=== PATIENT | male | born 1975 | race African-American/Black ===

== ENCOUNTER 2019-08-26 14:36 | Outpatient (CLI) | payer OTHER ==
--- NOTE | 2019-08-26 15:11 | RAD ---
2 VIEWS CHEST: Date: 08/26/2019 COMPARISON: 03/24/15. HISTORY: Disability examination. FINDINGS: No pneumothorax, pleural fluid, focal consolidation, or alveolar edema. Heart and mediastinal contour s are unremarkable. IMPRESSION: No acute findings. POS: [facility]
== END 2019-08-26 14:37 | disposition home or self-care (01) ==
LOC: BICRAD 14:36
PROVIDERS: ATTEND Internal Medicine
DX: Z02.71 Encounter for disability determination (principal)
CPT/HCPCS: 71046

== ENCOUNTER 2020-04-25 08:51 | Inpatient (IN) | payer MEDICAID, OTHER ==
[2020-04-25 09:43] LABS: Bacteria/HPF None Seen HPF (None Seen); Bilirubin Negative (Negative); Blood, Urine Trace (Negative); Clarity Clear (Clear); Glucose, Urine (Dipstick) Greater than 1000 mg/dL (Negative); Ketone, Urine Negative (Negative); Leukocyte Negative Leu/uL (Negative); Nitrite Negative (Negative); Protein, Urine (Dipstick) 70 mg/dL (Neg-Trace); RBC/HPF 0-3 HPF (0-3); Specific Gravity, Urine 1.018 (1.002-1.036); Squamous Epithelial None Seen HPF (0-3); Urobilinogen Normal mg/dL (Less than 2); WBC/HPF 0-3 HPF (0-3)
[2020-04-25 09:52] LABS: Amphetamine Not Detected (NotDetected); Barbiturates Screen Not Detected (NotDetected); Benzodiazepine Screen Not Detected (NotDetected); Cocaine Metabolite Screen Not Detected (NotDetected); Medtox Control Line Valid? VALID (VALID); Medtox Reader # READER 4; Methadone Not Detected (NotDetected); Methamphetamine Not Detected (NotDetected); Opiate Screen Not Detected (NotDetected); Oxycodone Screen Not Detected (NotDetected); Phencyclidine (PCP) Not Detected (NotDetected); THC/Cannabinoid Screen Not Detected (NotDetected); Tricyclic Screen Not Detected (NotDetected)
--- NOTE | 2020-04-25 09:56 | CT ---
CT HEAD WITHOUT IV CONTRAST COMPARISON: None HISTORY: Shaking. Seizure. TECHNIQUE: Axial CT imaging at 5 mm intervals from vertex through skull base without contrast FINDINGS: There is no evidence of an acute infarction, hemorrhage, mass effect, or midline shift. The ventricul ar system is normal in size, shape, and position. Visualized paranasal sinuses are clear. Osseous structures appear intact. IMPRESSION: 1. No acute intracranial abnormality demonstrated.
[2020-04-25 09:58] LABS: ALT (SGPT) 47 U/L (8-55); AST (SGOT) 29 U/L (5-34); Acetaminophen Less than 6.0 mcg/mL (10.0-30.0); Albumin 3.4 g/dL (3.5-5.0); Alcohol Less than 10 mg/dL (Less than 10); Alkaline Phosphatase 257 U/L (40-110); Anion Gap 14 mmol/L (10-20); BUN (Urea Nitrogen) 28 mg/dL (8.9-20.6); Bilirubin, Total 0.4 mg/dL (0.2-1.2); Calc. Creatinine Clearance 0 mL/min (70-130); Carbon Dioxide 24 mmol/L (22-29); Chloride 98 mmol/L (98-107); Estimated GFR-MDRD 29; Globulin 3.8 g/dL (2.4-3.5); Hemoglobin 14.3 g/dL (14.0-18.0); Mean Corpuscular HGB CONC 33.3 g/dL (32.0-36.0); Mean Corpuscular Hemoglobin 27.7 pg (27.0-31.0); Protein, Total 7.2 g/dL (6.0-8.3); RBC Distribution Width 14.1 % (11.5-14.5); Red Blood Cell (RBC) Count 5.16 mill/uL (4.70-6.10); Salicylate Less than 8.0 mg/dL (15.0-30.0); Sodium 132 mmol/L (136-145); White Blood Cell (WBC) Count 7.6 thou/uL (4.8-10.8)
[2020-04-25 10:01] LABS: #Eosinphils 0.1 thou/uL (0.0-0.7); #Lymphocytes 1.5 thou/uL (1.20-3.40); #Monocytes 0.5 thou/uL (0.11-0.59); #Neutrophils 5.4 thou/uL (1.40-6.50); %Basophils 0.4 % (0.0-1.0); %Lymphocytes 20.4 % (21.0-51.0); %Monocytes 6.3 % (0.0-10.0); %Neutrophils 71.9 % (42.0-75.0); Large Platelets MODERATE; MDiff Complete? YES; Mean Platelet Volume 13.1 fL (7.4-10.4); Platelet Count 140 thou/uL (130-400); Platelet Morphology Comment Appears Adequate; Polychromasia SLIGHT = 2-3 cells (100X) (0-2/hpf)
[2020-04-25 10:10] LABS: Glucose 725 mg/dL (70-105)
[2020-04-25] MEDS ORDERED: Insulin Regular 300 UNITS/3 ML VIAL ONE (10:17)
--- NOTE | 2020-04-25 11:05 | PDOC.HHP ---
Hospitalist HPI - History of Present Illness Seizure like activity History of Present Illness: PCP: [facility] for all The H&P was taken from the patient as well as his girlfriend, who is at bedside in the emergency department. The patient is a 44-year-old male with a past medical history significant for diabetes type 2 (on insulin), CHF, hypertension, hyperlipidemia and CKD stage III that presents to the emergency department via EMS for the above complaint. The patient and his girlfriend report upon waking this morning, seizure-like activity at approximately 0800. She reports that when she rolled over in bed, the patient had his bilateral upper extremities contracted against his chest with his eyes rolled in the back of his head. At that time, she thought that he was either having a seizure or a stroke. She also noticed bright red blood from his mouth. She also reports that he was gritting his teeth. She believes this lasted approximately 15 minutes. She proceeded to turn the patient on his side and called 911. When EMS arrived, the patient was described as being confused and mildly combative. With reorientation, the patient returned to baseline. He was noted to have a blood glucose of 587, heart rate 110. The patient and his girlfriend deny any recent trauma or falls. He has not any anticoagulation. He has no family history of seizures. Denies any recent fever or illness. Both report that he has been noncompliant with medication regimen secondary to access. The patient is disabled and is currently establishing, seen at [facility]. The patient also reports polyuria, polydipsia and polyphagia. Denies any dysuria or penile discharge. Patient reports chronic abdominal pain, which they think is related to his diagnosis of gastroparesis. Denies any bloody stools or constipation. The patient denies any chest pain, heart palpitations, swelling to his lower extremities. Denies any shortness of breath or cough. ED Course: VITAL SIGNS Lowman Apr 25, 2020 09:13 SKINNY Andrews Jenifer BP: 183/123, MAP: 143, Pulse: 112, Resp: 18 (Non-Labored), Temp: 98.8 (Oral), Pain: 3, O2 sat: 94 on (Room Air), Time: 04/25/2020 09:13. VITAL SIGNS Lowman Apr 25, 2020 10:33 SKINNY Andrews Jenifer BP: 198/135, MAP: 156, Pulse: 103, Resp: 17 (Non-Labored), Pain: 6, O2 sat: 95 on (Room Air), Time: 04/25/2020 10:33 *Tylenol 1 g Oral Acknowledged 10:42 04/25/2020 NovoLIN R Regular U-100 Insuln 10 units IV Push Given 10:26 04/25/2020 sodium chloride 0.9 % intravenous 1 L IV Fluid Infusion Given 10:25 04/25/2020 sodium chloride 0.9 % intravenous 1 L IV Fluid Infusion Given 09:26 04/25/2020 Hospitalist ROS - Review of Systems Constitutional: denies: fever, chills Respiratory: denies: cough, shortness of breath Cardiovascular: denies: chest pain, palpitations, edema Gastrointestinal: denies: nausea, abdominal pain, diarrhea Genitourinary: reports: frequency. denies: dysuria, hematuria, retention Musculoskeletal: denies: neck pain, back pain Skin: denies: luis manuel, bruising Neurological: reports: confusion, seizures (Possible seizure-like activity) All other systems reviewed; all pertinent +/- noted in HPI/Subj - Medication Medications: HumaLOG VIAL (ML) : Strength - 100 unit/mL : SUBCUTANEOUS Patient Dose: 10 units Subcutaneous As Needed. Levemir Flexpen INSULIN PEN (ML) : Strength - 100 unit/mL (3 mL) : SUBCUTANEOUS Patient Dose: 85 units Subcutaneous once a day (at bedtime). gabapentin CAPSULE : Strength - 300 mg : ORAL Patient Dose: 300 mg Oral 3 times a day. Lasix oral TABLET : Strength - 20 mg : ORAL Patient Dose: 20 mg Oral once a day. aspirin oral TABLET : Strength - 81 mg : ORAL Patient Dose: 81 mg Oral once a day. Omeprazole 40mg po daily. Allergies: NKDA Hospitalist History - Past Medical History Source: patient, RN notes reviewed Cardiac: reports: CHF, HTN, Hyperlipidemia HEEL CUTTER: reports: Peripheral neuropathy Gastrointestinal: reports: GERD, Other (Gastroparesis likely due to uncontrolled diabetes) Renal/: reports: Chronic renal insuff (Stage III) Endocrine: reports: Diabetes (Type II) Other Medical History: MEDICAL HISTORY Sun Apr 25, 2020 09:06 SKINNY Andrews, Viji Tetanus immunization up to date, Pneumococcal vaccine not up to date, gastroesophageal reflux disease, renal disease, insufficiency, STAGE 3, congestive heart failure, diabetes, Type II, on insulin, gastroesophageal reflux disease, hypertension. MALE SURGICAL HISTORY Lowman Apr 25, 2020 09:06 SKINNY Andrews Jenifer ear tubes, infection to scrotum. PSYCHIATRIC HISTORY Lowman Apr 25, 2020 09:06 SKINNY Andrews Jenifer No previous psychiatric history. SOCIAL HISTORY Lowman Apr 25, 2020 09:06 SKINNY Andrews Jenifer Patient denies alcohol use, Patient is a former drug user, abused marijuana, Patient has no smoking history. FAMILY HISTORY: - Past Surgical History Past Surgical History: reports: no pertinent history - Family History Family History: reports: cancer, Other (Noncontributory for seizures). denies: cerebrovascular accident Other Family History: contributory for Diabetes. - Social History Smoking Status: Never smoker Alcohol: reports: None Drugs: reports: none Living Situation: Other (Lives with girlfriend in [facility]) Occupation: Disabled Activity level: independent ambulation - Exam General Appearance: NAD, awake alert Eye: PERRL, anicteric sclera ENT: normocephalic atraumatic. negative: no oropharyngeal lesions ENT - other findings: right side tongue ulceration/lesion, no blood Neck: supple, symmetric, no JVD Heart: RRR, no murmur, no gallops, no rubs, normal peripheral pulses Respiratory: CTAB, no wheezes, no rales, no ronchi, normal chest expansion, no tachypnea Gastrointestinal: soft, non-tender, normal bowel sounds, no bruit, no guarding, no rigidity Extremities: no cyanosis, no edema Neurological: cranial nerve grossly intact, normal sensation to touch, no weakness, no focal deficits Musculoskeletal: normal tone, normal strength Psychiatric: normal affect, A&O x 3 Hospitalist Results - Labs Result Diagrams: 04/25/20 09:24 04/25/20 09:24 Lab results: WBC 7.6 thou/uL (4.8-10.8) 04/25/20 09:24 Hgb 14.3 g/dL (14.0-18.0) 04/25/20 09:24 Hct 42.8 % (42.0-52.0) 04/25/20 09:24 MCV 83.0 fL (78.0-98.0) 04/25/20 09:24 Plt Count 140 thou/uL (130-400) 04/25/20 09:24 Neutrophils % 71.9 % (42.0-75.0) 04/25/20 09:24 Sodium 132 mmol/L (136-145) L 04/25/20 09:24 Potassium 4.0 mmol/L (3.5-5.1) 04/25/20 09:24 Chloride 98 mmol/L (98-107) 04/25/20 09:24 Carbon Dioxide 24 mmol/L (22-29) 04/25/20 09:24 BUN 28 mg/dL (8.9-20.6) H 04/25/20 09:24 Creatinine 2.92 mg/dL (0.7-1.3) H 04/25/20 09:24 Glucose 725 mg/dL (70-105) H* 04/25/20 09:24 Calcium 9.0 mg/dL (7.8-10.44) 04/25/20 09:24 Total Bilirubin 0.4 mg/dL (0.2-1.2) 04/25/20 09:24 AST 29 U/L (5-34) 04/25/20 09:24 ALT 47 U/L (8-55) 04/25/20 09:24 Alkaline Phosphatase 257 U/L (40-110) H 04/25/20 09:24 Serum Total Protein 7.2 g/dL (6.0-8.3) 04/25/20 09:24 Albumin 3.4 g/dL (3.5-5.0) L 04/25/20 09:24 Urine Ketones Negative mg/dL (Negative) 04/25/20 09:25 Urine Blood Trace (Negative) A 04/25/20 09:25 Urine Nitrite Negative (Negative) 04/25/20 09:25 Ur Leukocyte Esterase Negative Reji/uL (Negative) 04/25/20 09:25 Urine RBC 0-3 HPF (0-3) 04/25/20 09:25 Urine WBC 0-3 HPF (0-3) 04/25/20 09:25 Ur Squamous Epith Cells None Seen HPF (0-3) 04/25/20 09:25 Urine Bacteria None Seen HPF (None Seen) 04/25/20 09:25 - EKG Interpretation EK lead EKG interpreted by Emergency Department Physician at time of study, 12 lead EKG shows, sinus tachycardia, Rate (beats per minute): 109, Conduction normal, ST segments normal, T waves normal, [place], left, Clinical impression:, other dysrhythmia left anterior fasicular block, no stemi, no sgarbossa. - Radiology Interpretation Chest x-ray Status: report reviewed by me Additional Comment: No acute cardiopulmonary process. CT scan - head Status: report reviewed by me Additional Comment: IMPRESSION: 1. No acute intracranial abnormality demonstrated. Hospitalist H&P A/P - Problem (1) Observed seizure-like activity Code(s): R56.9 - UNSPECIFIED CONVULSIONS Status: Acute (2) Hyperglycemia Code(s): R73.9 - HYPERGLYCEMIA, UNSPECIFIED Status: Acute (3) KAIDEN (acute kidney injury) Code(s): N17.9 - ACUTE KIDNEY FAILURE, UNSPECIFIED Status: Acute (4) DM type 2 (diabetes mellitus, type 2) Status: Chronic Qualifiers: Diabetes mellitus mcc insulin use: with mcc use Diabetes mellitus complication status: with hyperosmolarity Diabetes mellitus complication detail: without coma Qualified Code(s): E11.00 - Type 2 diabetes mellitus with hyperosmolarity without nonketotic hyperglycemic-hyperosmolar coma (NKHHC); Z79.4 - halfway (current) use of insulin (5) CHF (congestive heart failure) Code(s): I50.9 - HEART FAILURE, UNSPECIFIED Status: Chronic (6) Hypertension Code(s): I10 - ESSENTIAL (PRIMARY) HYPERTENSION Status: Chronic Qualifiers: Hypertension type: essential hypertension Qualified Code(s): I10 - Essential (primary) hypertension (7) Hyperlipidemia Code(s): E78.5 - HYPERLIPIDEMIA, UNSPECIFIED Status: Chronic (8) GERD (gastroesophageal reflux disease) Code(s): K21.9 - GASTRO-ESOPHAGEAL REFLUX DISEASE WITHOUT ESOPHAGITIS Status: Chronic - Plan Plan: 44/M with PMH uncontrolled DM2 presents for seizure-like activity. Admit to stroke unit, inpatient status. Expected length of stay greater than 2 midnights. #Seizure-like activity Likely metabolic encephalopathy secondary to elevated blood glucose readings. Presented hypertensive and tachycardic with normal RR, normal SPO2, afebrile. CT brain negative for acute process. EKG sinus tach, no ST elevation. CXR negative for acute process. BG 725, UA positive glucose, negative ketones. Gap of 14. Beta hydroxybutyrate 0.34. LA 1.8. Sodium 132 (corrected 142) UDS negative Serum osmolality 327 Prolactin unremarkable. Received 2 L normal saline, 10 units regular insulin IV. Continue IV fluids, half normal saline Aggressive ISS, every 4 Accu-Cheks Start Lantus 40 twice daily (half home dose) Recheck BMP at 1700. Consult neurology and Physical Therapy Neuro checks every 4 Seizure precautions, fall precautions Ativan IVP PRN Obtain echocardiogram. #Hyperglycemia Presented BG 725, UA positive glucose, negative ketones Beta hydroxybutyrate 0.34, gap closed, LA 1.8. Given 10 units of regular insulin and 2 L NS We will continue IV fluid resuscitation Start Lantus 40 units twice daily (half home dose) Aggressive sliding scale Every 4 Accu-Cheks #KAIDEN Acute on chronic (most recent reading 2014) BUN 28, creatinine 2.92 We will continue IV fluid Recheck level in a.m. #Diabetes type 2 Uncontrolled H A1c greater than 14 Patient reports noncompliance secondary to access. Aggressive ISS, every 4 checks Start Lantus 40 units twice daily #CHF Previous echocardiogram 03/2015 EF 50-55% with left ventricular dilatation and LVH. Left atrial dilatation. Mild tricuspid and mitral valve regurgitation. Patient noncompliant with Coreg secondary to limited access. We will obtain echocardiogram. #Hypertension Presented with BP 183/123. We will monitor blood pressure and add PRN's as necessary. #Hyperlipidemia Patient takes no medications Will check FLP. #GERD Takes unknown home medication. Will start on Protonix. Protonix for GI prophylaxis. Heparin for DVT prophylaxis. Full code. Designated medical decision-maker GIRLFRIEND, Phone number: [phone], [place] [facility] AT PT BEDSIDE. Discussed case with Dr. Jay.
--- NOTE | 2020-04-25 11:06 | RAD ---
EXAM: CHEST ONE VIEW HISTORY: Possible seizure. Shaking. Mouth bleeding. COMPARISON: 08/26/2019 FINDINGS: The cardiac silhouette and pulmonary vasculature are within normal limits. Mild elevation right hemid iaphragm is again seen. Lungs are clear. No interval change from prior study. IMPRESSION: No acute cardiopulmonary process.
[2020-04-25] MEDS ORDERED: Acetaminophen 500 MG TAB ONE (11:10)
[2020-04-25 11:20] LABS: Hemoglobin A1c Greater than 14.0 % (4.0-6.0)
[2020-04-25 11:32] LABS: INR-International Normal Ratio 0.9; PTT 24.5 sec (22.9-36.1); Prothrombin Time 11.9 sec (12.0-14.7)
[2020-04-25 11:43] LABS: Lactic Acid 1.8 mmol/L (0.5-2.2)
[2020-04-25 11:46] LABS: Phosphorus 2.2 mg/dL (2.3-4.7)
[2020-04-25] MEDS ORDERED: Dextrose 5% in Water 1,000 ML IV PRN (12:13)
[2020-04-25] MEDS ORDERED: Dextrose 50% Abboject 50 ML SYRINGE SLOW IVP PRN (12:13)
[2020-04-25] MEDS ORDERED: PHOS-NAK 1 PKT PACK PO PRN (12:19)
[2020-04-25] MEDS ORDERED: hydrALAZINE 20 MG/ML VIAL SLOW IVP PRN (12:24)
[2020-04-25] MEDS ORDERED: Lorazepam 2 MG/ML VIAL SLOW IVP PRN (12:25)
[2020-04-25] MEDS ORDERED: Ondansetron PF 4 MG/2 ML Vial IVP PRN (12:26)
[2020-04-25] MEDS ORDERED: Calcium Carbonate 500 MG ChewTAB PO PRN (12:26)
[2020-04-25] MEDS ORDERED: Ondansetron ODT 4 MG TAB PO PRN (12:26)
[2020-04-25] MEDS ORDERED: Senokot S 8.6-50 MG TAB PO PRN (12:26)
[2020-04-25] MEDS ORDERED: Insulin Glargine 40 UNITS in Pre-Filled Syringe 1 EACH SC SCH ×2 (12:30→21:00)
[2020-04-25 14:38] VITALS: BMI 39.6
[2020-04-25] MEDS: Benzocaine (Dental) 20% 10 gm Tube TOP PRN ×2 (15:20→20:33)
[2020-04-25] MEDS: Sodium Chloride 0.45% 1,000 ML IV SCH (15:28)
[2020-04-25 15:52] LABS: Troponin I 0.069 ng/mL (< 0.028)
[2020-04-25] MEDS: Labetalol HCl 100 MG/20 ML VIAL SLOW IVP PRN ×2 (17:10→22:14)
[2020-04-25] MEDS: HumaLOG 300 UNITS/3 ML VIAL SC PRN (17:11)
[2020-04-25] MEDS: Acetaminophen 325 MG TAB PO PRN ×2 (17:12→20:33)
[2020-04-25] MEDS: K-Phos Neutral 250 MG TAB PO SCH (17:12)
[2020-04-25 17:26] LABS: Anion Gap 15 mmol/L (10-20); BUN (Urea Nitrogen) 27 mg/dL (8.9-20.6); Calc. Creatinine Clearance 85 mL/min (70-130); Calcium 8.9 mg/dL (7.8-10.44); Carbon Dioxide 22 mmol/L (22-29); Chloride 100 mmol/L (98-107); Estimated GFR-MDRD 36; Glucose 478 mg/dL (70-105); Potassium 3.5 mmol/L (3.5-5.1); Sodium 133 mmol/L (136-145)
[2020-04-25 17:54] LABS: Troponin I 0.081 ng/mL (< 0.028)
[2020-04-25] MEDS ORDERED: Aspirin 325 mg Enteric Coated Tablet PO SCH (18:30)
[2020-04-25] MEDS: cloNIDine 0.1 MG TAB PO PRN (18:43)
[2020-04-25] MEDS ORDERED: Benzocaine (Dental) 20% 10 gm Tube TOP PRN (19:08)
[2020-04-25] MEDS: Heparin 5,000 UNITS/ML VIAL SC SCH (20:33)
[2020-04-26] MEDS: HumaLOG 300 UNITS/3 ML VIAL SC PRN ×7 (00:42→23:50)
[2020-04-26] MEDS: Acetaminophen 325 MG TAB PO PRN ×3 (00:42→21:00)
[2020-04-26] MEDS: Sodium Chloride 0.45% 1,000 ML IV SCH (00:47)
[2020-04-26] MEDS: Labetalol HCl 100 MG/20 ML VIAL SLOW IVP PRN ×3 (04:21→15:22)
[2020-04-26 04:41] LABS: #Basophils 0.1 thou/uL (0.0-0.2); #Eosinphils 0.1 thou/uL (0.0-0.7); #Lymphocytes 2.4 thou/uL (1.20-3.40); #Monocytes 0.5 thou/uL (0.11-0.59); #Neutrophils 4.8 thou/uL (1.40-6.50); %Eosinophils 1.8 % (0.0-10.0); %Monocytes 5.7 % (0.0-10.0); %Neutrophils 61.5 % (42.0-75.0); Hemoglobin 12.8 g/dL (14.0-18.0); Mean Corpuscular HGB CONC 33.1 g/dL (32.0-36.0); Mean Corpuscular Hemoglobin 27.3 pg (27.0-31.0); Mean Corpuscular Volume 82.4 fL (78.0-98.0); Mean Platelet Volume 12.4 fL (7.4-10.4); Platelet Count 127 thou/uL (130-400); RBC Distribution Width 13.9 % (11.5-14.5); Red Blood Cell (RBC) Count 4.67 mill/uL (4.70-6.10); White Blood Cell (WBC) Count 7.9 thou/uL (4.8-10.8)
[2020-04-26 05:04] LABS: Anion Gap 14 mmol/L (10-20); BUN (Urea Nitrogen) 26 mg/dL (8.9-20.6); Calc. Creatinine Clearance 99 mL/min (70-130); Calcium 8.5 mg/dL (7.8-10.44); Carbon Dioxide 21 mmol/L (22-29); Chloride 103 mmol/L (98-107); Cholesterol 174 mg/dl (< 200 Desired); Estimated GFR-MDRD 43; Glucose 350 mg/dL (70-105); HDL Cholesterol 29 mg/dL (>60 Neg Risk); Phosphorus 2.8 mg/dL (2.3-4.7); Potassium 3.2 mmol/L (3.5-5.1); Sodium 135 mmol/L (136-145); Triglycerides 523 mg/dL (Less than 150)
[2020-04-26] MEDS ORDERED: Famotidine 20 MG TAB PO SCH (09:00)
[2020-04-26] MEDS ORDERED: Famotidine/PF 20 mg/2ml Vial SLOW IVP SCH (09:00)
--- NOTE | 2020-04-26 09:24 | MRI ---
MRI BRAIN WITHOUT CONTRAST: HISTORY: Seizure CORRELATION: CT scan from 04/25/2020. FINDINGS: No restricted diffusion is seen. There are a few foci of T2 prolongation in the periventricular white matter, consistent with mild chronic small vessel ischemic disease. The ventricular size is appropriate and the basilar cisterns are patent. No evidence of acute infarct, hemorrhage, midline shift or abnormal extra-axial fluid collections is seen. There is minimal mucosal disease in the left ethmoid air cells. IMPRESSION: No evidence of acute intracranial process.
[2020-04-26] MEDS: K-Phos Neutral 250 MG TAB PO SCH (09:41)
[2020-04-26] MEDS: Aspirin 81 mg Enteric Coated Tablet PO SCH (09:41)
[2020-04-26] MEDS: Heparin 5,000 UNITS/ML VIAL SC SCH ×2 (09:43→20:50)
[2020-04-26] MEDS: Insulin Glargine 40 UNITS in Pre-Filled Syringe 1 EACH SC SCH (09:43)
[2020-04-26] MEDS: cloNIDine 0.1 MG TAB PO PRN ×3 (11:41→23:49)
[2020-04-26] MEDS ORDERED: HumaLOG 300 UNITS/3 ML VIAL SC PRN (11:57)
[2020-04-26] MEDS ORDERED: Amlodipine 5 MG TAB PO SCH (12:00)
[2020-04-26] MEDS ORDERED: Metoprolol Tartrate 25 MG TAB PO SCH ×2 (12:15→21:00)
--- NOTE | 2020-04-26 13:16 | CON ---
NEUROLOGY CONSULTATION DATE OF CONSULTATION: 04/26/2020 REASON FOR CONSULTATION: Seizure-like activity. HISTORY OF PRESENT ILLNESS: Mr. Baez is a 44-year-old male with history significant for congestive heart failure, hypertension, hyperlipidemia, peripheral neuropathy, GERD, diabetes, and end-stage stage 3 chronic kidney disease, presented to the emergency room via EMS because of seizure-like activity. The patient and his girlfriend reported that on waking up in the morning, he had seizure-like activity. According to the patient's girlfriend, she rolled over in bed, when she saw the patient, has bilateral upper extremity contracted again, his chest and his eyes rolled at the back of his head. She also noticed bright red blood coming from the mouth and he was grinding his teeth. The episode lasted for about 15 minutes and she put the patient on the side and called 911. When the EMS arrived, he was confused and combative. He also was found to have hyperglycemia with blood glucose of 587 and heart rate of 110. The patient denies focal weakness, focal paresthesias, nausea, vomiting, headache, chest pain, abdominal pain, loss of vision, blurred vision, problems with speech or swallowing associated with the episode. He also denies constipation, chest pain, palpitation, cough or recent illness or recent exposure to COVID. REVIEW OF SYSTEMS: All 14 systems were reviewed and were negative except the pertinent positives and negatives mentioned in the HPI. PAST MEDICAL HISTORY: Significant for hypertension, hyperlipidemia, congestive heart failure, diabetes mellitus, chronic renal insufficiency stage 3, GERD, and peripheral neuropathy. PAST SURGICAL HISTORY: Ear tubes and surgery for infection to scrotum. SOCIAL HISTORY: The patient is a former drug user, abuse marijuana. Denies smoking, alcohol or illegal drug use. FAMILY HISTORY: Significant for cancer. Denies history of epilepsy or cerebrovascular accident. He does have family history of diabetes. SOCIAL HISTORY: Disabled. Lives with a girlfriend. Denies smoking, alcohol or illegal drug use. He has not abused drugs in the past. ALLERGIES:NKDA VITAL SIGNS: Blood pressure 183/123 on presentation, heart rate 112, and respiratory rate 18. MEDICATIONS: 1. Humalog insulin 100 units/mL subcutaneous 10 units as needed. 2. Insulin Pen 85 units subcutaneously at bedtime. 3. Levemir FlexPen. 4. Gabapentin 300 mg t.i.d. 5. Lasix 20 mg once a day. 6. Aspirin 81 mg once a day. 7. Omeprazole 40 mg daily. ALLERGIES: NO KNOWN DRUG ALLERGIES. PHYSICAL EXAMINATION: General Appearance: NAD, awake alert Eye: PERRL, anicteric sclera ENT: normocephalic atraumatic. negative: no oropharyngeal lesions ENT - other findings: right side tongue ulceration/lesion, no blood Neck: supple, symmetric, no JVD Heart: RRR, no murmur, no gallops, no rubs, normal peripheral pulses Respiratory: CTAB, no wheezes, no rales, no ronchi, normal chest expansion, no tachypnea Gastrointestinal: soft, non-tender, normal bowel sounds, no bruit, no guarding, no rigidity Extremities: no cyanosis, no edema Neurological: Mental status, the patient is alert and oriented to person, place, and time. Recent and remote memory, intact. Fund of knowledge is appropriate. Speech is clear. Cranial nerves 2 through 12 intact. Motor, muscle tone and bulk are normal. Strength 5/5 bilaterally. Sensory, decreased sensation in a glove and stocking distribution. Cerebellar, finger-nose testing intact. Gait deferred due to the patient's safety reason. DATA REVIEWED: I reviewed the labs, which were significant for hyperglycemia at 725 on initial presentation and hyponatremia of 132, and chronic kidney disease with BUN of 28 and creatinine of 2.92. EKG showed normal sinus rhythm. Head CT did not reveal any acute intracranial pathology. Lab results: WBC 7.6 thou/uL (4.8-10.8) 04/25/20 09:24 Hgb 14.3 g/dL (14.0-18.0) 04/25/20 09:24 Hct 42.8 % (42.0-52.0) 04/25/20 09:24 MCV 83.0 fL (78.0-98.0) 04/25/20 09:24 Plt Count 140 thou/uL (130-400) 04/25/20 09:24 Neutrophils % 71.9 % (42.0-75.0) 04/25/20 09:24 Sodium 132 mmol/L (136-145) L 04/25/20 09:24 Potassium 4.0 mmol/L (3.5-5.1) 04/25/20 09:24 Chloride 98 mmol/L (98-107) 04/25/20 09:24 Carbon Dioxide 24 mmol/L (22-29) 04/25/20 09:24 BUN 28 mg/dL (8.9-20.6) H 04/25/20 09:24 Creatinine 2.92 mg/dL (0.7-1.3) H 04/25/20 09:24 Glucose 725 mg/dL (70-105) H* 04/25/20 09:24 Calcium 9.0 mg/dL (7.8-10.44) 04/25/20 09:24 Total Bilirubin 0.4 mg/dL (0.2-1.2) 04/25/20 09:24 AST 29 U/L (5-34) 04/25/20 09:24 ALT 47 U/L (8-55) 04/25/20 09:24 Alkaline Phosphatase 257 U/L (40-110) H 04/25/20 09:24 Serum Total Protein 7.2 g/dL (6.0-8.3) 04/25/20 09:24 Albumin 3.4 g/dL (3.5-5.0) L 04/25/20 09:24 Urine Ketones Negative mg/dL (Negative) 04/25/20 09:25 Urine Blood Trace (Negative) A 04/25/20 09:25 Urine Nitrite Negative (Negative) 04/25/20 09:25 Ur Leukocyte Esterase Negative Reji/uL (Negative) 04/25/20 09:25 Urine RBC 0-3 HPF (0-3) 04/25/20 09:25 Urine WBC 0-3 HPF (0-3) 04/25/20 09:25 Ur Squamous Epith Cells None Seen HPF (0-3) 04/25/20 09:25 Urine Bacteria None Seen HPF (None Seen) 04/25/20 09:25 - EKG Interpretation EK lead EKG interpreted by Emergency Department Physician at time of study, 12 lead EKG shows, sinus tachycardia, Rate (beats per minute): 109, Conduction normal, ST segments normal, T waves normal, [place], left, Clinical impression:, other dysrhythmia left anterior fasicular block, no stemi, no sgarbossa. - Radiology Interpretation Chest x-ray Status: report reviewed by me Additional Comment: No acute cardiopulmonary process. CT scan - head Status: report reviewed by me Additional Comment: IMPRESSION: 1. No acute intracranial abnormality demonstrated. ASSESSMENT AND PLAN: (1) Observed seizure-like activity Code(s): R56.9 - UNSPECIFIED CONVULSIONS Status: Acute (2) Hyperglycemia Code(s): R73.9 - HYPERGLYCEMIA, UNSPECIFIED Status: Acute (3) KAIDEN (acute kidney injury) Code(s): N17.9 - ACUTE KIDNEY FAILURE, UNSPECIFIED Status: Acute (4) DM type 2 (diabetes mellitus, type 2) Status: Chronic Qualifiers: Diabetes mellitus watermaster insulin use: with watermaster use Diabetes mellitus complication status: with hyperosmolarity Diabetes mellitus complication detail: without coma Qualified Code(s): E11.00 - Type 2 diabetes mellitus with hyperosmolarity without nonketotic hyperglycemic-hyperosmolar coma (NKHHC); Z79.4 - senior care (current) use of insulin (5) CHF (congestive heart failure) Code(s): I50.9 - HEART FAILURE, UNSPECIFIED Status: Chronic (6) Hypertension Code(s): I10 - ESSENTIAL (PRIMARY) HYPERTENSION Status: Chronic Qualifiers: Hypertension type: essential hypertension Qualified Code(s): I10 - Essential (primary) hypertension (7) Hyperlipidemia Code(s): E78.5 - HYPERLIPIDEMIA, UNSPECIFIED Status: Chronic (8) GERD (gastroesophageal reflux disease) Code(s): K21.9 - GASTRO-ESOPHAGEAL REFLUX DISEASE WITHOUT ESOPHAGITIS Status: Chronic Mr. Baez is a 44-year-old male with history significant for uncontrolled diabetes mellitus, hypertension, hyperlipidemia, presented with seizure-like activity, most likely a provoked seizure in the setting of metabolic encephalopathy secondary to acute hyperglycemia. Head CT is negative for acute intracranial process. EKG showed normal sinus rhythm. Urine drug screen was negative. MRI of the brain reviewed, which was negative for acute intracranial process processes. EEG negative for seizure activity. Neuro checks every 4 hours. Continue home medication. Continue medical management of hyperglycemia per primary team. MRI of the brain is negative. EEG is also negative, so no need to start anticonvulsants based on first-time seizure with a provoked trigger- Hyperglycemia. Thank you for the consult. Job ID: [id number] [facility]ITALClaudia
[2020-04-26 13:26] LABS: SARS-CoV-2 MS2 Positive; SARS-CoV-2 N Gene Negative; SARS-CoV-2 S Gene Negative; SARS-CoV-2 by NAA Not Detected (NotDetected); SARS-CoV-2 orf1ab Negative
--- NOTE | 2020-04-26 16:03 | PDOC.HOSPP ---
- Subjective Encounter Date: 04/26/20 Encounter Time: 16:00 Subjective: f/u for encephalopathy and ? seizure-like activity with negative prolactin and MRI brain scan. Severe hyperglycemia noted on admit improved with insulin administration. Nursing reports labile HTN. - Objective Vital Signs & Weight: Vital Signs (12 hours) Temp Pulse Resp BP BP Pulse Ox 04/26/20 15:22 84 181/109 H 04/26/20 15:17 98.4 F 84 18 181/109 H 97 04/26/20 12:19 192/103 H 04/26/20 11:41 192/103 H 04/26/20 11:38 97.7 F 88 18 192/103 H 93 L 04/26/20 09:43 88 177/87 H 04/26/20 07:50 98.1 F 88 20 177/87 H 96 04/26/20 05:55 185/107 H 04/26/20 04:21 88 Weight Admit Weight 334 lb 6.4 oz Weight 334 lb 6.4 oz I&O: 04/25/20 04/26/20 04/27/20 06:59 06:59 06:59 Intake Total 1689 600 Output Total 1900 800 Balance -211 -200 Result Diagrams: 04/26/20 04:08 04/26/20 04:08 Additional Labs: Accuchecks 04/26/20 04/26/20 04/26/20 12:28 08:34 04:25 POC Glucose 301 H 290 H 324 H 04/25/20 04/25/20 04/25/20 23:55 21:03 18:31 POC Glucose 422 H 350 H 395 H 04/25/20 04/25/20 04/25/20 17:00 12:28 09:13 POC Glucose 443 H Greater than 500 H Greater than 500 H Radiology Reviewed by me: Yes (MRI brain - neg; ECHO - EF 55-60%, mild LAE) EKG Reviewed by me: Yes (Tele - SR) Hospitalist ROS - Medication Medications: Active Medications Generic Name Dose Route Start Last Admin Trade Name Freq PRN Reason Stop Dose Admin Acetaminophen 650 mg 04/25/20 12:26 04/26/20 09:41 Acetaminophen 325 Mg Tab PO 650 mg Q4H PRN Administration Headache/Fever/Mild Pain (1-3) Aspirin 81 mg 04/26/20 09:00 04/26/20 09:41 Aspirin 81 Mg Enteric Coated Tablet PO 81 mg DAILY ZARA Administration Clonidine 0.1 mg 04/25/20 18:01 04/26/20 11:41 Clonidine 0.1 Mg Tab PO 0.1 mg Q4H PRN Administration SBP Greater Than 180 Heparin Sodium (Porcine) 5,000 units 04/25/20 21:00 04/26/20 09:43 Heparin 5,000 Units/Ml Vial SC 5,000 units BID ZARA Administration Insulin Glargine 40 units/ 0.4 mls @ 0 mls/hr 04/26/20 09:00 04/26/20 09:43 Miscellaneous Medication SC 0.4 mls QAM ZARA Administration Insulin Human Lispro 0 units 04/25/20 12:13 04/26/20 12:29 Humalog 300 Units/3 Ml Vial SC 11 units .AGGRESSIVE SLIDING PRN Administration Aggressive Correctional Scale Insulin Human Lispro 0 units 04/25/20 12:13 04/26/20 04:24 Humalog 300 Units/3 Ml Vial SC 4 unit .BEDTIME SLIDING SC PRN Administration Bedtime Correctional Scale Labetalol HCl 10 mg 04/25/20 13:03 04/26/20 15:22 Labetalol Hcl 100 Mg/20 Ml Vial SLOW IVP 10 mg Q4H PRN Administration Systolic BP > 180 Pantoprazole Sodium 40 mg 04/26/20 09:00 04/26/20 09:41 Pantoprazole 40 Mg Tab PO 40 mg DAILY ZARA Administration - Exam General Appearance: NAD, awake alert Eye: PERRL, anicteric sclera ENT: normocephalic atraumatic, no oropharyngeal lesions Neck: supple, symmetric, no JVD, no thyromegaly, no lymphadenopathy Heart: RRR, no murmur, no gallops, no rubs, normal peripheral pulses Heart - other findings: S1, S2 Respiratory: CTAB, no wheezes, no rales, no ronchi, normal chest expansion, no tachypnea Gastrointestinal: soft, non-tender, non-distended, normal bowel sounds, no palpable masses Gastrointestinal - other findings: obese Extremities: no cyanosis, no clubbing, no edema Skin: normal turgor, no lesions Neurological: cranial nerve grossly intact, no new deficit Musculoskeletal: normal tone, normal strength, no muscle wasting Psychiatric: normal affect, A&O x 3 Hosp A/P (1) Acute metabolic encephalopathy Code(s): G93.41 - METABOLIC ENCEPHALOPATHY Status: Acute (2) KAIDEN (acute kidney injury) Code(s): N17.9 - ACUTE KIDNEY FAILURE, UNSPECIFIED Status: Acute (3) Diabetes mellitus type 2 with complications, uncontrolled Code(s): E11.8 - TYPE 2 DIABETES MELLITUS WITH UNSPECIFIED COMPLICATIONS; E11.65 - TYPE 2 DIABETES MELLITUS WITH HYPERGLYCEMIA Status: Chronic (4) Hypertension Code(s): I10 - ESSENTIAL (PRIMARY) HYPERTENSION Status: Chronic Qualifiers: Hypertension type: essential hypertension Qualified Code(s): I10 - Essential (primary) hypertension (5) Morbid obesity Code(s): E66.01 - MORBID (SEVERE) OBESITY DUE TO EXCESS CALORIES Status: Chronic (6) Hyperlipidemia Code(s): E78.5 - HYPERLIPIDEMIA, UNSPECIFIED Status: Chronic - Plan 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
[2020-04-26] MEDS ORDERED: Non-Formulary Item 1 EACH (Insulin Glargine,Hum.Rec.Anlog [Lantus Solostar] 100 UNIT/ML P SC SCH (21:00)
[2020-04-26] MEDS ORDERED: Insulin Glargine 20 UNITS in Pre-Filled Syringe 1 EACH SC SCH (21:00)
[2020-04-26] MEDS: Gabapentin 100 MG CAP PO SCH (21:00)
[2020-04-26] MEDS: Metoprolol Tartrate 50 MG TAB PO SCH (21:00)
[2020-04-27] MEDS: cloNIDine 0.1 MG TAB PO PRN ×2 (04:19→13:27)
[2020-04-27] MEDS: Labetalol HCl 100 MG/20 ML VIAL SLOW IVP PRN (04:20)
[2020-04-27] MEDS: HumaLOG 300 UNITS/3 ML VIAL SC PRN ×3 (04:38→16:19)
[2020-04-27 05:09] LABS: #Basophils 0.1 thou/uL (0.0-0.2); #Eosinphils 0.2 thou/uL (0.0-0.7); #Lymphocytes 2.1 thou/uL (1.20-3.40); #Monocytes 0.5 thou/uL (0.11-0.59); #Neutrophils 3.7 thou/uL (1.40-6.50); %Basophils 1.1 % (0.0-1.0); %Eosinophils 2.5 % (0.0-10.0); %Lymphocytes 31.9 % (21.0-51.0); %Monocytes 7.2 % (0.0-10.0); %Neutrophils 57.2 % (42.0-75.0); Hemoglobin 12.5 g/dL (14.0-18.0); Mean Corpuscular HGB CONC 32.7 g/dL (32.0-36.0); Mean Corpuscular Hemoglobin 27.1 pg (27.0-31.0); Mean Corpuscular Volume 83.1 fL (78.0-98.0); Mean Platelet Volume 12.3 fL (7.4-10.4); Platelet Count 130 thou/uL (130-400); Red Blood Cell (RBC) Count 4.59 mill/uL (4.70-6.10); White Blood Cell (WBC) Count 6.5 thou/uL (4.8-10.8)
[2020-04-27 05:36] LABS: ALT (SGPT) 40 U/L (8-55); AST (SGOT) 36 U/L (5-34); Albumin 3.1 g/dL (3.5-5.0); Alkaline Phosphatase 198 U/L (40-110); Anion Gap 16 mmol/L (10-20); BUN (Urea Nitrogen) 23 mg/dL (8.9-20.6); Bilirubin, Total 0.3 mg/dL (0.2-1.2); Calc. Creatinine Clearance 114 mL/min (70-130); Calcium 8.7 mg/dL (7.8-10.44); Carbon Dioxide 20 mmol/L (22-29); Chloride 107 mmol/L (98-107); Estimated GFR-MDRD 50; Globulin 3.6 g/dL (2.4-3.5); Glucose 232 mg/dL (70-105); Potassium 3.5 mmol/L (3.5-5.1); Protein, Total 6.7 g/dL (6.0-8.3); Sodium 139 mmol/L (136-145)
[2020-04-27] MEDS: Insulin Glargine 40 UNITS in Pre-Filled Syringe 1 EACH SC SCH (07:46)
[2020-04-27] MEDS: Heparin 5,000 UNITS/ML VIAL SC SCH ×2 (07:46→20:53)
[2020-04-27] MEDS: Gabapentin 100 MG CAP PO SCH ×2 (07:48→20:53)
[2020-04-27] MEDS: Aspirin 81 mg Enteric Coated Tablet PO SCH (07:48)
[2020-04-27] MEDS: Acetaminophen 325 MG TAB PO PRN (07:49)
[2020-04-27] MEDS: Metoprolol Tartrate 50 MG TAB PO SCH ×2 (07:49→20:52)
--- NOTE | 2020-04-27 08:58 | EEG ---
DATE OF SERVICE: 04/26/2020 ATTENDING PHYSICIAN: Margoth Garza MD This EEG was performed using 24-channel [employer] video digital EEG machine with 24-disk electrodes. This was an extended 2 hours 6 minutes of inpatient video EEG recording. BACKGROUND: The posterior background rhythm is 9 to 10 Hz. The background rhythm attenuates with eye opening and enhances with eye closure. HYPERVENTILATION: Not performed. PHOTIC STIMULATION: Bioccipital symmetric driving response is observed. SLEEP: Drowsiness and brief sleep were observed. EEG DIAGNOSIS: Normal awake, drowsy, and sleep EEG. Job ID: [id number]
[2020-04-27] MEDS ORDERED: Amlodipine 5 MG TAB PO SCH ×2 (09:00→12:00)
--- NOTE | 2020-04-27 11:14 | PDOC.NEUPN ---
- Subjective Encounter Date: 04/27/20 Subjective: No seizures since admission. MRI nrain and EEG negative. No complaints o vernight. - Objective Vital Signs & Weight: Vital Signs (12 hours) Temp Pulse Resp BP Pulse Ox 04/27/20 10:34 80 171/106 H 04/27/20 07:48 78 04/27/20 07:27 98.4 F 78 18 200/114 H 98 04/27/20 07:15 98 04/27/20 04:00 98.1 F 82 20 195/122 H 96 04/27/20 00:00 98.2 F 84 20 189/115 H 98 Weight Admit Weight 334 lb 6.4 oz Weight 334 lb 6.4 oz I&O: 04/26/20 04/27/20 04/28/20 06:59 06:59 06:59 Intake Total 1689 900 300 Output Total 1900 800 Balance -211 100 300 Result Diagrams: 04/27/20 04:21 04/27/20 04:21 Additional Labs: Accuchecks 04/27/20 04/27/20 04/27/20 10:51 07:50 04:08 POC Glucose 297 H 220 H 239 H 04/26/20 04/26/20 04/26/20 23:54 20:44 17:16 POC Glucose 282 H 303 H 308 H 04/26/20 04/25/20 04/25/20 12:28 12:28 09:13 POC Glucose 301 H Greater than 500 H Greater than 500 H Radiology Reviewed by me: Yes EKG Reviewed by me: Yes ROS - Review of Systems Constitutional: denies: fever, chills, sweats, weakness, malaise, other Eyes: denies: pain, vision change, conjunctivae inflammation, eyelid inflammation, redness, other ENT: denies: ear pain, ear discharge, nose pain, nose discharge, nose congestion, mouth pain, mouth swelling, throat pain, throat swelling, other Respiratory: denies: cough, dry, shortness of breath, hemoptysis, SOB with excertion, pleuritic pain, sputum, wheezing, other Cardiovascular: denies: no pertinent history, AFIB, CAD, CHF, HTN, OH, Syncope, Hyperlipidemia, Mitral valve stenosis, Aortic stenosis, Valve insufficiency, Pulmonary hypertension, Other Gastrointestinal: denies: nausea, vomiting, abdominal pain, diarrhea, constipation, melena, hematochezia, other Genitourinary: denies: dysuria, frequency, incontinence, hematuria, retention, other Musculoskeletal: denies: neck pain, shoulder pain, arm pain, back pain, hand pain, leg pain, foot pain, other Skin: denies: rash, lesions, luis manuel, bruising, other Neurological: denies: weakness, numbness, incoordination, change in speech, confusion, seizures, other - Medication Medications: Active Medications Generic Name Dose Route Start Last Admin Trade Name Freq PRN Reason Stop Dose Admin Acetaminophen 650 mg 04/25/20 12:26 04/27/20 07:49 Acetaminophen 325 Mg Tab PO 650 mg Q4H PRN Administration Headache/Fever/Mild Pain (1-3) Amlodipine Besylate 5 mg 04/27/20 09:00 04/27/20 07:48 Amlodipine 5 Mg Tab PO 5 mg DAILY ZARA Administration Aspirin 81 mg 04/26/20 09:00 04/27/20 07:48 Aspirin 81 Mg Enteric Coated Tablet PO 81 mg DAILY ZARA Administration Clonidine 0.1 mg 04/25/20 18:01 04/27/20 04:19 Clonidine 0.1 Mg Tab PO 0.1 mg Q4H PRN Administration SBP Greater Than 180 Gabapentin 100 mg 04/26/20 21:00 04/27/20 07:48 Gabapentin 100 Mg Cap PO 100 mg BID ZARA Administration Heparin Sodium (Porcine) 5,000 units 04/25/20 21:00 04/27/20 07:46 Heparin 5,000 Units/Ml Vial SC 5,000 units BID ZARA Administration Insulin Glargine 40 units/ 0.4 mls @ 0 mls/hr 04/26/20 09:00 04/27/20 07:46 Miscellaneous Medication SC 0.4 mls QAM ZARA Administration Insulin Glargine 20 units/ 0.2 mls @ 0 mls/hr 04/26/20 21:00 04/26/20 20:51 Miscellaneous Medication SC 0.2 mls HS ZARA Administration As Directed Insulin Human Lispro 0 units 04/25/20 12:13 04/27/20 11:10 Humalog 300 Units/3 Ml Vial SC 9 units .AGGRESSIVE SLIDING PRN Administration Aggressive Correctional Scale Insulin Human Lispro 0 units 04/25/20 12:13 04/27/20 04:38 Humalog 300 Units/3 Ml Vial SC 2 unit .BEDTIME SLIDING SC PRN Administration Bedtime Correctional Scale Labetalol HCl 10 mg 04/25/20 13:03 04/27/20 04:20 Labetalol Hcl 100 Mg/20 Ml Vial SLOW IVP 10 mg Q4H PRN Administration Systolic BP > 180 Metoprolol Tartrate 50 mg 04/26/20 21:00 04/27/20 07:49 Metoprolol Tartrate 50 Mg Tab PO 50 mg BID ZARA Administration Pantoprazole Sodium 40 mg 04/26/20 09:00 04/27/20 07:49 Pantoprazole 40 Mg Tab PO 40 mg DAILY ZARA Administration - Exam General Appearance: awake alert Eye: PERRL, anicteric sclera ENT: normocephalic atraumatic, no oropharyngeal lesions Neck: supple Respiratory: CTAB Cardiovascular: RRR Gastrointestinal: soft Extremities: no cyanosis Skin: normal turgor Neurological: CN's grossly intact, normal sensation to touch, no weakness, no focal deficits Musculoskeletal: normal tone, normal strength, no muscle wasting PSYCH: normal affect, normal behavior, A&O x 3, oriented to person, oriented to place, oriented to time Results - Labs Result Diagrams: 04/27/20 04:21 04/27/20 04:21 Lab results: WBC 6.5 thou/uL (4.8-10.8) 04/27/20 04:21 Hgb 12.5 g/dL (14.0-18.0) L 04/27/20 04:21 Hct 38.2 % (42.0-52.0) L 04/27/20 04:21 MCV 83.1 fL (78.0-98.0) 04/27/20 04:21 Plt Count 130 thou/uL (130-400) 04/27/20 04:21 Neutrophils % 57.2 % (42.0-75.0) 04/27/20 04:21 Sodium 139 mmol/L (136-145) 04/27/20 04:21 Potassium 3.5 mmol/L (3.5-5.1) 04/27/20 04:21 Chloride 107 mmol/L (98-107) 04/27/20 04:21 Carbon Dioxide 20 mmol/L (22-29) L 04/27/20 04:21 BUN 23 mg/dL (8.9-20.6) H 04/27/20 04:21 Creatinine 1.80 mg/dL (0.7-1.3) H 04/27/20 04:21 Glucose 232 mg/dL (70-105) H 04/27/20 04:21 Lactic Acid 1.8 mmol/L (0.5-2.2) 04/25/20 11:18 Calcium 8.7 mg/dL (7.8-10.44) 04/27/20 04:21 Total Bilirubin 0.3 mg/dL (0.2-1.2) 04/27/20 04:21 AST 36 U/L (5-34) H 04/27/20 04:21 ALT 40 U/L (8-55) 04/27/20 04:21 Alkaline Phosphatase 198 U/L (40-110) H 04/27/20 04:21 Troponin I 0.081 ng/mL (< 0.028) H 04/25/20 17:03 C-Reactive Protein 2.75 mg/dL (= or < 0.5) H 04/25/20 11:18 Serum Total Protein 6.7 g/dL (6.0-8.3) 04/27/20 04:21 Albumin 3.1 g/dL (3.5-5.0) L 04/27/20 04:21 Urine Ketones Negative mg/dL (Negative) 04/25/20 09:25 Urine Blood Trace (Negative) A 04/25/20 09:25 Urine Nitrite Negative (Negative) 04/25/20 09:25 Ur Leukocyte Esterase Negative Reji/uL (Negative) 04/25/20 09:25 Urine RBC 0-3 HPF (0-3) 04/25/20 09:25 Urine WBC 0-3 HPF (0-3) 04/25/20 09:25 Ur Squamous Epith Cells None Seen HPF (0-3) 04/25/20 09:25 Urine Bacteria None Seen HPF (None Seen) 04/25/20 09:25 - Radiology Interpretation MRI - head Additional Comment: Negative for stroke or bleed PN A/P (1) New onset seizure Code(s): R56.9 - UNSPECIFIED CONVULSIONS Status: Acute (2) CHF (congestive heart failure) Code(s): I50.9 - HEART FAILURE, UNSPECIFIED Status: Chronic (3) DM type 2 (diabetes mellitus, type 2) Status: Chronic Qualifiers: 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: with assisted use Diabetes mellitus complication status: with hyperosmolarity Diabetes mellitus complication detail: without coma Qualified Code(s): E11.00 - Type 2 diabetes mellitus with hyperosmolarity without nonketotic hyperglycemic-hyperosmolar coma ([facility]); Z79.4 - skilled nursing (current) use of insulin (4) Hyperlipidemia Code(s): E78.5 - HYPERLIPIDEMIA, UNSPECIFIED Status: Chronic (5) Hypertension Code(s): I10 - ESSENTIAL (PRIMARY) HYPERTENSION Status: Chronic Qualifiers: Hypertension type: essential hypertension Qualified Code(s): I10 - Essential (primary) hypertension (6) Morbid obesity Code(s): E66.01 - MORBID (SEVERE) OBESITY DUE TO EXCESS CALORIES Status: Chronic - Plan Daily Plan: plan discussed w/ family, out of bed/ambulate 44 year old consulted for new onset seizure.Most likely provoked seizure due to hyperglycemia. MRI brain reviewed and was negative for acute intracranial process. EEG reviewed and was negative for seizure activity. No need for anticonvulsant with negative imaging, EEG and a obvious trigger. Continue home medications. Continue medical management per primary team. Medication compliance encouraged. Strict control of BG. Plan discussed with patient, family member and during MDR rounds.
--- NOTE | 2020-04-27 13:57 | PDOC.HOSPP ---
- Subjective Encounter Date: 04/27/20 Encounter Time: 13:50 Subjective: f/u for HTN/hyperglycemic encephalopathy. BP remains labile per nursing. Pt denies any specific complaints currently. States he needs a PCP after d/c. - Objective Vital Signs & Weight: Vital Signs (12 hours) Temp Pulse Resp BP BP Pulse Ox 04/27/20 13:30 185/110 H 04/27/20 13:27 185/110 H 04/27/20 12:00 97.7 F 69 16 184/111 H 96 04/27/20 11:59 80 180/105 H 180/105 H 04/27/20 10:34 80 171/106 H 04/27/20 07:48 78 04/27/20 07:27 98.4 F 78 18 200/114 H 98 04/27/20 07:15 98 04/27/20 04:00 98.1 F 82 20 195/122 H 96 Weight Admit Weight 334 lb 6.4 oz Weight 334 lb 6.4 oz I&O: 04/26/20 04/27/20 04/28/20 06:59 06:59 06:59 Intake Total 1689 900 600 Output Total 1900 800 Balance -211 100 600 Result Diagrams: 04/27/20 04:21 04/27/20 04:21 Additional Labs: Accuchecks 04/27/20 04/27/20 04/27/20 10:51 07:50 04:08 POC Glucose 297 H 220 H 239 H 04/26/20 04/26/20 04/26/20 23:54 20:44 17:16 POC Glucose 282 H 303 H 308 H Microbiology 04/25/20 11:18 Venous blood - Right Arm Blood Culture - Preliminary Specimen has been received and culture in progress. No Growth to date. 04/25/20 11:15 Venous blood - Left Arm Blood Culture - Preliminary Specimen has been received and culture in progress. No Growth to date. Laboratory Tests 04/25/20 04/25/20 04/25/20 09:24 09:24 09:24 Potassium 4.0 Creatinine 2.92 H Lactic Acid Phosphorus Magnesium Troponin I Triglycerides Cholesterol LDL Cholesterol, Calc HDL Cholesterol Prolactin 12.97 B-Hydroxybutyrate 0.34 H SARS-CoV-2 (PCR) 04/25/20 04/25/20 04/25/20 11:18 11:18 11:18 Potassium Creatinine Lactic Acid 1.8 Phosphorus Magnesium 2.0 Troponin I 0.050 H Triglycerides Cholesterol LDL Cholesterol, Calc HDL Cholesterol Prolactin B-Hydroxybutyrate SARS-CoV-2 (PCR) 04/25/20 04/25/20 04/25/20 11:50 15:26 17:03 Potassium 3.5 Creatinine 2.40 H Lactic Acid Phosphorus Magnesium Troponin I 0.069 H Triglycerides Cholesterol LDL Cholesterol, Calc HDL Cholesterol Prolactin B-Hydroxybutyrate SARS-CoV-2 (PCR) Not Detected 04/25/20 04/26/20 17:03 04:08 Potassium Creatinine Lactic Acid Phosphorus 2.8 Magnesium Troponin I 0.081 H Triglycerides 523 H Cholesterol 174 LDL Cholesterol, Calc TNP HDL Cholesterol 29 Prolactin B-Hydroxybutyrate SARS-CoV-2 (PCR) EKG Reviewed by me: Yes (Tele - SR) Hospitalist ROS - Medication Medications: Active Medications Generic Name Dose Route Start Last Admin Trade Name Freq PRN Reason Stop Dose Admin Acetaminophen 650 mg 04/25/20 12:26 04/27/20 07:49 Acetaminophen 325 Mg Tab PO 650 mg Q4H PRN Administration Headache/Fever/Mild Pain (1-3) Amlodipine Besylate 5 mg 04/27/20 12:00 04/27/20 11:59 Amlodipine 5 Mg Tab PO 04/27/20 14:00 5 mg NOW ZARA Administration Aspirin 81 mg 04/26/20 09:00 04/27/20 07:48 Aspirin 81 Mg Enteric Coated Tablet PO 81 mg DAILY ZARA Administration Clonidine 0.1 mg 04/25/20 18:01 04/27/20 13:27 Clonidine 0.1 Mg Tab PO 0.1 mg Q4H PRN Administration SBP Greater Than 180 Gabapentin 100 mg 04/26/20 21:00 04/27/20 07:48 Gabapentin 100 Mg Cap PO 100 mg BID ZARA Administration Heparin Sodium (Porcine) 5,000 units 04/25/20 21:00 04/27/20 07:46 Heparin 5,000 Units/Ml Vial SC 5,000 units BID ZARA Administration Insulin Human Lispro 0 units 04/25/20 12:13 04/27/20 11:10 Humalog 300 Units/3 Ml Vial SC 9 units .AGGRESSIVE SLIDING PRN Administration Aggressive Correctional Scale Insulin Human Lispro 0 units 04/25/20 12:13 04/27/20 04:38 Humalog 300 Units/3 Ml Vial SC 2 unit .BEDTIME SLIDING SC PRN Administration Bedtime Correctional Scale Labetalol HCl 10 mg 04/25/20 13:03 04/27/20 04:20 Labetalol Hcl 100 Mg/20 Ml Vial SLOW IVP 10 mg Q4H PRN Administration Systolic BP > 180 Metoprolol Tartrate 50 mg 04/26/20 21:00 04/27/20 07:49 Metoprolol Tartrate 50 Mg Tab PO 50 mg BID ZARA Administration Pantoprazole Sodium 40 mg 04/26/20 09:00 04/27/20 07:49 Pantoprazole 40 Mg Tab PO 40 mg DAILY ZARA Administration - Exam General Appearance: NAD, awake alert Eye: PERRL, anicteric sclera ENT: normocephalic atraumatic, no oropharyngeal lesions Neck: supple, symmetric, no JVD, no thyromegaly, no lymphadenopathy Heart: RRR, no gallops, no rubs, normal peripheral pulses Heart - other findings: S1, S2 Respiratory: CTAB, no wheezes, no rales, no ronchi, normal chest expansion, no tachypnea Gastrointestinal: soft, non-tender, non-distended, normal bowel sounds, no palpable masses Extremities: no cyanosis, no clubbing, no edema Skin: normal turgor, no lesions Neurological: cranial nerve grossly intact, no new deficit Musculoskeletal: normal tone, normal strength, no muscle wasting Psychiatric: normal affect, A&O x 3 Hosp A/P (1) Hypertension Code(s): I10 - ESSENTIAL (PRIMARY) HYPERTENSION Status: Chronic Qualifiers: Hypertension type: essential hypertension Qualified Code(s): I10 - Essential (primary) hypertension Plan: Remains labile, increase Norvasc 10mg daily, add HCTZ 25mg daily, continue Metoprolol 50mg BID (2) Acute metabolic encephalopathy Code(s): G93.41 - METABOLIC ENCEPHALOPATHY Status: Acute Plan: Likely multifactorial, resolved (3) Diabetes mellitus type 2 with complications, uncontrolled Code(s): E11.8 - TYPE 2 DIABETES MELLITUS WITH UNSPECIFIED COMPLICATIONS; E11.65 - TYPE 2 DIABETES MELLITUS WITH HYPERGLYCEMIA Status: Chronic Plan: Increase Glargine 45u qam/25u qhs, ISS (4) KAIDEN (acute kidney injury) Code(s): N17.9 - ACUTE KIDNEY FAILURE, UNSPECIFIED Status: Acute Plan: Improved, avoid nephrotoxic meds and limit contrast (5) Morbid obesity Code(s): E66.01 - MORBID (SEVERE) OBESITY DUE TO EXCESS CALORIES Status: Chronic (6) Hyperlipidemia Code(s): E78.5 - HYPERLIPIDEMIA, UNSPECIFIED Status: Chronic - Plan 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
[2020-04-27] MEDS ORDERED: Hydrochlorothiazide 25 MG TAB PO SCH (14:00)
[2020-04-27] MEDS ORDERED: Insulin Glargine 25 UNITS in Pre-Filled Syringe 1 EACH SC SCH (21:00)
[2020-04-28] MEDS: Labetalol HCl 100 MG/20 ML VIAL SLOW IVP PRN (00:44)
[2020-04-28] MEDS: HumaLOG 300 UNITS/3 ML VIAL SC PRN ×3 (00:45→08:16)
[2020-04-28] MEDS: cloNIDine 0.1 MG TAB PO PRN (06:02)
[2020-04-28] MEDS: Gabapentin 100 MG CAP PO SCH (08:15)
[2020-04-28] MEDS: Aspirin 81 mg Enteric Coated Tablet PO SCH (08:15)
[2020-04-28] MEDS: Acetaminophen 325 MG TAB PO PRN (08:16)
[2020-04-28] MEDS: Metoprolol Tartrate 50 MG TAB PO SCH (08:16)
[2020-04-28] MEDS: Heparin 5,000 UNITS/ML VIAL SC SCH (08:16)
[2020-04-28] MEDS ORDERED: Insulin Glargine 45 UNITS in Pre-Filled Syringe 1 EACH SC SCH (09:00)
[2020-04-28] MEDS ORDERED: Amlodipine 10 MG TAB PO SCH (09:00)
[2020-04-28] MEDS ORDERED: Hydrochlorothiazide 25 MG TAB PO SCH (09:00)
[2020-04-28 11:45] VITALS: TEMP 98.1
[2020-04-28 11:49] VITALS: BP 177/87
--- NOTE | 2020-04-28 23:29 | DIS ---
DATE OF ADMISSION: 04/25/2020 DATE OF DISCHARGE: 04/28/2020 DISCHARGE DIAGNOSES: 1. Hypertension, improved. 2. Acute metabolic encephalopathy, multifactorial including hyperglycemic and hypertensive etiology. 3. Diabetes mellitus type 2, insulin requiring, labile. 4. Acute kidney injury on chronic kidney disease stage 3, improved. 5. Morbid obesity. 6. Hyperlipidemia. CONSULTATIONS: Margoth Garza MD with Neurology Service. PERTINENT LABORATORY AND X-RAY FINDINGS: Creatinine ranged between 1.80 to 2.92, estimated GFR ranged between 29 to 50. Hemoglobin A1c greater than 14, lactic acid level 1.8, phosphorus 2.8, magnesium level 2.0. Total cholesterol 174, triglycerides 523, HDL 29. Prolactin level 13. Troponin I ranged between 0.050 to 0.081. Urine drug screen dated 04/25/2020 negative. Beta-hydroxybutyrate level 0.34. COVID-19 PCR not detected, 04/25/2020. Blood cultures x2 dated 04/25/2020, showed no growth at [address] of the brain without contrast dated 04/25/2020, showed no acute intracranial process. Portable chest x-ray dated 04/25/2020, showed no acute cardiopulmonary process. EEG dated 04/25/2020, showed normal study. 2D transthoracic echocardiogram dated 04/25/2020, showed technically limited study. Ejection fraction estimated 55% to 60%. Mild mitral and tricuspid regurgitation. MRI of the brain dated 04/26/2020, showed no acute intracranial process. HOSPITAL COURSE: The patient was initially admitted after presenting with questionable seizure-like activity and altered mental status. The patient was noted with severe hyperglycemia with glucose values greater than 700 as well as acute kidney injury and hypertension. The patient was placed on seizure precautions and given general supportive management. Initial CT and MRI imaging of the brain revealed no evidence of acute CVA. Initial prolactin level was evaluated and noted negative. The patient underwent evaluation by the Neurology Service due to questionable seizure-like activity including EEG evaluation showing no seizure activity. The patient's presentation consistent with hypertensive and hyperglycemic encephalopathy with attention to optimal glycemic and blood pressure control. The patient was titrated on his antihypertensive medicine as well as insulin regimen with overall improved glucose and blood pressure trend by the time of discharge. Overall, the patient did remain clinically stable during the hospital course tolerating regular oral intake with stable vital signs. I have examined the patient at the time of discharge and discussed followup instructions. The patient verbalized understanding and agreement, ready for discharge on 04/28/2020. DISCHARGE MEDICATIONS: 1. Metoprolol 50 mg p.o. b.i.d. 2. Norvasc 10 mg p.o. daily. 3. Lantus 50 units subcutaneously q.a.m. and 30 units subcutaneously at bedtime. 4. Hydrochlorothiazide 25 mg p.o. daily. 5. Enteric-coated aspirin 81 mg p.o. daily. 6. Gabapentin 100 mg p.o. b.i.d. FOLLOWUP: The patient may follow up with [facility] in [place], [place] within 7 days of discharge. CONDITION ON DISCHARGE: Stable. ACTIVITY: Ad-sadie. DIET: Heart healthy and ADA. CODE STATUS: Full. DISPOSITION: To home, 04/28/2020. TIME SPENT: Total time preparing and coordinating discharge is 32 minutes. Job ID: [id number]
== END 2020-04-28 12:20 | disposition home or self-care (01) | DRG 77 ==
LOC: ERS 08:51 → 2SE 13:25
PROVIDERS: ADMIT Internal Medicine; ATTEND Internal Medicine
DX: I67.4 Hypertensive encephalopathy (principal); E11.00 Type 2 diabetes mellitus with hyperosmolarity without nonketotic hyperglycemic-hyperosmolar coma (NKHHC); G93.41 Metabolic encephalopathy; N17.9 Acute kidney failure, unspecified; I13.0 Hypertensive heart and chronic kidney disease with heart failure and stage 1 through stage 4 chronic kidney disease, or unspecified chronic kidney disease; E11.65 Type 2 diabetes mellitus with hyperglycemia; E66.01 Morbid (severe) obesity due to excess calories; E78.5 Hyperlipidemia, unspecified; I50.9 Heart failure, unspecified; N18.3 Chronic kidney disease, stage 3 (moderate); E11.51 Type 2 diabetes mellitus with diabetic peripheral angiopathy without gangrene; E11.43 Type 2 diabetes mellitus with diabetic autonomic (poly)neuropathy; K31.84 Gastroparesis; K21.9 Gastro-esophageal reflux disease without esophagitis; Z79.4 Long term (current) use of insulin; Z79.82 Long term (current) use of aspirin; Z79.899 Other long term (current) drug therapy; Z68.39 Body mass index [BMI] 39.0-39.9, adult
CPT/HCPCS: 36415; 36416; 70450; 70551; 71045; 80048; 80053; 80061; 80306; 80307; 81003; 81015; 82010; 83036; 83605; 83735; 83930; 84100; 84146; 84484; 85025; 85610; 85730; 86140; 87040; 87635; 93005; 93306; 95712; 95816; 95819; 95957; 96361; 96374; J1644; J1815; U0003

== ENCOUNTER 2020-07-20 18:26 | Inpatient (IN) | payer MEDICAID, OTHER ==
[2020-07-20] MEDS ORDERED: Acetaminophen 500 MG TAB ONE (19:20)
[2020-07-20 19:30] LABS: #Basophils 0.1 thou/uL (0.0-0.2); #Eosinphils 0.1 thou/uL (0.0-0.7); #Lymphocytes 1.7 thou/uL (1.20-3.40); #Monocytes 0.6 thou/uL (0.11-0.59); #Neutrophils 6.9 thou/uL (1.40-6.50); %Eosinophils 0.9 % (0.0-10.0); %Lymphocytes 18.1 % (21.0-51.0); %Monocytes 6.8 % (0.0-10.0); %Neutrophils 73.2 % (42.0-75.0); Hemoglobin 13.5 g/dL (14.0-18.0); Mean Corpuscular HGB CONC 34.4 g/dL (32.0-36.0); Mean Corpuscular Hemoglobin 27.7 pg (27.0-31.0); Mean Corpuscular Volume 80.5 fL (78.0-98.0); Mean Platelet Volume 12.2 fL (7.4-10.4); Platelet Count 153 thou/uL (130-400); RBC Distribution Width 13.6 % (11.5-14.5); Red Blood Cell (RBC) Count 4.88 mill/uL (4.70-6.10); White Blood Cell (WBC) Count 9.4 thou/uL (4.8-10.8)
[2020-07-20 19:56] LABS: ALT (SGPT) 38 U/L (8-55); AST (SGOT) 34 U/L (5-34); Albumin 3.6 g/dL (3.5-5.0); Alkaline Phosphatase 319 U/L (40-110); Anion Gap 18 mmol/L (10-20); BUN (Urea Nitrogen) 41 mg/dL (8.9-20.6); Bilirubin, Total 0.5 mg/dL (0.2-1.2); Calc. Creatinine Clearance 0 mL/min (70-130); Calcium 9.3 mg/dL (7.8-10.44); Carbon Dioxide 26 mmol/L (22-29); Chloride 88 mmol/L (98-107); Globulin 3.9 g/dL (2.4-3.5); Magnesium 2.2 mg/dL (1.6-2.6); Potassium 3.4 mmol/L (3.5-5.1); Protein, Total 7.5 g/dL (6.0-8.3); Sodium 129 mmol/L (136-145)
[2020-07-20 20:07] LABS: Glucose 788 mg/dL (70-105)
[2020-07-20 20:17] LABS: CKMB 4.1 ng/mL (0-6.6)
--- NOTE | 2020-07-20 20:38 | PDOC.FPRHP ---
- History of Present Illness Chief Complaint: weakness History of Present Illness: 45 y/o M with PMHx DM with neuropathy, HTN, CKD, HFpEF brought by EMS after a fall 2/2 bilateral lower extremity weakness. Reports fell onto a curb earlier today because he could not pick his feet up. Endorses numbness, tingling, and weakness that has been gradually worsening over the past 2 weeks. Denies back pain, fecal or urinary incontinence. Denies any additional or focal weakness. Reports non-compliance with his medications including his insulin. Taking medication less than half the days - reports he does not know how to use his flexpens for his insulin and only takes when his girlfriend is able to help him. Today, he c/o L shoulder pain since his fall, and intermittent twitching of his L thigh. Endorses polydipsia, polyuria, and bilateral lower extremity pitting edema which are chronic and unchanged. Denies fever, chills, headache, n/v/d, abdominal pain, chest pain, SOB, diaphoresis, palpitations. Reports normal PO in take. ED course: tylenol, 2L NS XR shoulder wnl trop 0.04, EKG NSR with borderline QTc - Allergies/Adverse Reactions Allergies Allergy/AdvReac Type Severity Reaction Status Date / Time No Known Drug Allergies Allergy Unknown Verified 04/25/20 13:48 - Home Medications Medication Instructions Recorded Confirmed Type Gabapentin [Neurontin] 100 mg PO BID 03/24/15 04/26/20 History HumaLOG [HumaLOG Vial] 10 unit SC TID-WM PRN 03/24/15 04/26/20 History Amlodipine [Norvasc] 10 mg PO DAILY #30 tab 04/28/20 Rx Aspirin [Ecotrin Low Strength] 81 mg PO DAILY tab 04/28/20 Rx Hydrochlorothiazide 25 mg PO DAILY #30 tab 04/28/20 Rx Insulin Glargine [Lantus Vial] 30 units SC HS vial 04/28/20 Rx Insulin Glargine [Lantus Vial] 50 units SC QAM vial 04/28/20 Rx Metoprolol Tartrate [Lopressor] 50 mg PO BID #60 tab 04/28/20 Rx - History PMHx: T2DM, HTN, hx seizure 2/2 hyperglycemia, CKD, DM neuropathy, gastroparesis, possible CANDICE PSHx: R foot surgery FHx: HTN, T2DM, CKD Social: marijuana use, denies tobacco, etoh, other drugs - Review of Systems General: denies: fever/chills, weight/appetite/sleep changes Eyes: denies: eye pain, vision changes ENT: denies: nasal congestion, rhinorrhea Respiratory: denies: cough, congestion, shortness of breath Cardiovascular: reports: edema. denies: chest pain, palpitation Gastrointestinal: denies: nausea, vomiting, diarrhea, constipation, abdominal pain Genitourinary: reports: polyuria. denies: dysuria Skin: denies: rashes, lesions Musculoskeletal: reports: pain Neurological: reports: numbness, weakness. denies: syncope, seizure - Vital signs BP: 145/99, Pulse: 92, Resp: 20, O2 sat: 96 on (Room Air), Temp: 98.2, Wt: 143 kg - Physical Exam Constitutional: NAD, awake, alert and oriented HEENT: normocephalic and atraumatic, PERRLA, conjunctiva clear, no scleral icterus, grossly normal vision, grossly normal hearing -HEENT: dry mucous membranes, gold capped teeth Neck: supple, no LAD Chest: no-tender to palpation Heart: RRR, no murmurs/rubs/gallops, pulses present (1+ pulses bilaterally) -Heart: 2+ pitting edema to knees bilaterally Lungs: CTAB, no respiratory distress, no rales/rhonchi Abdomen: soft, non-tender Musculoskeletal: normal structure Neurological: no focal deficit, other (bilateral LE 4/5 strength) Skin: no rash/lesions Psychiatric: normal mood and affect, other (poor health literacy and insight into medical problems) FMR H&P: Results - Labs Result Diagrams: 07/20/20 19:12 07/21/20 01:28 Lab results: WBC 9.4 thou/uL (4.8-10.8) 07/20/20 19:12 Hgb 13.5 g/dL (14.0-18.0) L 07/20/20 19:12 Hct 39.3 % (42.0-52.0) L 07/20/20 19:12 MCV 80.5 fL (78.0-98.0) 07/20/20 19:12 Plt Count 153 thou/uL (130-400) 07/20/20 19:12 Neutrophils % 73.2 % (42.0-75.0) 07/20/20 19:12 Sodium 129 mmol/L (136-145) L 07/20/20 19:11 Potassium 3.4 mmol/L (3.5-5.1) L 07/20/20 19:11 Chloride 88 mmol/L (98-107) L 07/20/20 19:11 Carbon Dioxide 26 mmol/L (22-29) 07/20/20 19:11 BUN 41 mg/dL (8.9-20.6) H 07/20/20 19:11 Creatinine 3.10 mg/dL (0.7-1.3) H 07/20/20 19:11 Glucose 788 mg/dL (70-105) H* 07/20/20 19:11 Calcium 9.3 mg/dL (7.8-10.44) 07/20/20 19:11 Total Bilirubin 0.5 mg/dL (0.2-1.2) 07/20/20 19:11 AST 34 U/L (5-34) 07/20/20 19:11 ALT 38 U/L (8-55) 07/20/20 19:11 Alkaline Phosphatase 319 U/L (40-110) H 07/20/20 19:11 CK-MB (CK-2) 4.1 ng/mL (0-6.6) 07/20/20 19:11 Serum Total Protein 7.5 g/dL (6.0-8.3) 07/20/20 19:11 Albumin 3.6 g/dL (3.5-5.0) 07/20/20 19:11 - EKG Interpretation EKG: NSR, no ST segment changes, borderline QTc prolongation FMR H&P: A/P - Plan Hyperosmolar hyperglycemia syndrome Initial glucose 788, elevated serum osmolality 318, negative b-hydroxybutyrate 0.24 - no evidence for DKA. s/p 2L NS bolus in ED. Repeat POC glucose > 500 after 2L NS. - give 10u humalog and 30u lantus - continue fluid resuscitation with 1.5x mIVF: LR @ 250 cc/hr - will need to titrate insulin to meet needs; discharged on 50u + 30u lantus last admission 04/2020 Hypokalemia K 3.4 on admission. - K repletion started prior to insulin administration - 40 meq PO + 20 meq IV - repeat BMP 0200 - continue to replete as needed Indeterminate troponin Asymptomatic - although pain may be masked by severe diabetic neuropathy. EKG with no ST changes. - continue to trend troponin x 3 - telemetry monitoring - ASA 325 mg - increase atorvastatin to 40mg KAIDEN on CKD3b Cr 3.1 on admission, baseline 1.8. Likely 2/2 volume depletion with HHS. - 1.5x mIVF as above - hold home HCTZ Pseudohyponatremia Initial Na 129 on labs, 140 when corrected for severe hyperglycemia. - no intervention needed at this time - continue to monitor labs Lower extremity weakness Most likely due to HHS and DM neuropathy. Low suspicion for stroke or spinal cord pathology given gradual history and - tx HHS as above - PT/OT consulted Diabetic neuropathy Poorly controlled. Likely contributing to perceived leg weakness and difficulty walking. - will continue home gabapentin 100 mg BID - would likely benefit from increased dose if renal function tolerates LVH Last echo 04/2020 - EF 55-60% HTN Hypertensive. Medication non-compliance may be contributing factor. - continue home amlodipine, metoprolol HLD - will increase atorvastatin 20mg to 40mg L shoulder pain No gross deformity on exam, negative XR in ER. Likely mild soft tissue trauma s/p fall although would also consider referred cardiac pain in setting of indeterminate troponin. - tylenol, tramadol PRN for pain Poor health literacy with medication non-compliance Non-compliance partially due to unfamiliar with how to self-administer insulin using pens. - diabetes education prior to discharge Marijuana abuse Approximately every other day use - encourage cessation GERD - continue home pepcid Disposition/LOS: Dispo: LOS > 2 MN , inpt tele Diet: NPO IVF: LR @ 250 cc/hr DVT ppx: lovenox GI ppx: home pepcid Code: Full FMR H&P: Upper Level - Plan Date/Time: 07/20/202034 ITrent DO, have evaluated this patient and agree with findings/plan as outlined by media intern resident. Pertinent changes/additions are listed here. This is a 45 yo male with a pmh of HTN, DM 1, HLD, CKD 3, GERD, who presents to the ER with a cc of a fall today. He reports that for the past 2 weeks he has been having trouble walking. He states his difficulty mainly stems from his peripheral neuropathy. He state has pins and needles up to his knees and has w eakness in his lower legs because of this. He states the gabapentin that he takes helps some. In addition, he reports intermittent blurred vision, nausea and vomiting with eating, shortness of breath with walking, and abdominal pain at times. He reports poor compliance with his medications due to his lack of understanding on taking insulin and checking blood glucose. He states that today he has been having twitching in his legs. Objective: Vitals: BP 123/83, HR 95, RR 18, Temp 98.2, SpO2 95% on RA, Wt 142 kg General: NAD HEENT: Dry MM, AT/NC Cardio: RRR, no murmurs Respiratory: CTAB, no crackles or ronchi Abdomen: Obese, non tender, BS present Extremities: 1+pitting edema to knees, pulses present Neuro: 3-4/5 strength in BLE, non-focal findings DKA vs. HHS vs. Hyperglycemia alone -Admit to tele -Pending BHB and serum osmol to determine severity of condition -Plan to start insulin once potassium is above 4.0 -S/P 2L NS in the ER, plan to continue with LR Hypokalemia -Currently 3.4, given elevated glucose and ultimate need for insulin, we are replacing potassium IV and PO an assessing in 4 hours KAIDEN on CKD3 -Likely 2/2 dehydration -Giving fluids as above -Will avoid nephrotoxic drugs IDDM with peripheral neuropathy, poorly controlled -A1c in 04/2020 was 14 -Plan to start insulin regimen in hospital -Plan to restart gabapentin Weakness -Likely repercussions from his diabetes, I would consider a CT brain if it does not improve with glucose control -PT/OT Dehydration -As above Possible NSTEMI type 2 2/2 dehydration -EKG shows no ST elevation or depression -Troponin was 0.047 initially -We are ordering Aspirin 325mg, CXR, and will trend troponins HTN -Will continue metoprolol and amlodipine -I would consider changing to Coreg given hx of heart failure GERD -This likely due to gastroparesis and he may benefit from reglan once he starts eating again -Continue home pepcid LVH -Control BP and encourage sleep study CANDICE -Not official diagnosis but has the symptoms clinically. He would benefit from a sleep study and CPAP Clinical gastroparesis -As above Possible history of heart failure, Echo would suggest possible HFpEF -Will monitor for fluid overload -Pending BNP and CXR, not overloaded clinically Health illiteracy -Discussed the severity of his illnesses -Will have nursing staff reinforce how to give insulin, check blood glucose, and monitor BP Code: Full Prophylaxis: Lovenox Family: None at bedside Fluids: LR 250ml/hr Diet: NPO Disposition: DC in 2-3 days PCP: Dr. Linnea Shelby, [facility]
--- NOTE | 2020-07-20 20:56 | RAD ---
LEFT SHOULDER THREE VIEWS: 07/20/20 INDICATION: History of fall with left shoulder pain. COMPARISON: None. FINDINGS: There is a fragmented appearance of the acromial process which can be seen as an os acromiale or a mi ldly displaced acromial process fracture. The AC joint appears within normal limits. The left clavicl e is intact. The visualized left lung is clear. The visualized left scapula and proximal left humerus appear intact. IMPRESSION: Slight fragmentation involving the acromial process may reflect os acromiale which is a developmental variant. Alternatively this could reflect a mildly displaced acromial fracture. Recommend correlatio n with the clinical exam. Follow-up MRI of the left shoulder may be helpful for improved characteriz ation. POS: [facility]
--- NOTE | 2020-07-20 22:18 | RAD ---
Exam: Chest one view HISTORY:Elevated troponin. Difficulty walking. Comparison: 04/25/2020 FINDINGS: Cardiac silhouette: Normal Aorta: Unremarkable Pulmonary vessels: Normal Costophrenic angles: Clear LUNGS: Persistently diminished lung volume. No consolidation or mass. Pneumothorax: None Osseous abnormalities: None IMPRESSION: No acute cardiopulmonary process.
[2020-07-20] MEDS ORDERED: Potassium Chloride 20 MEQ TAB PO SCH (22:30)
[2020-07-20] MEDS ORDERED: Potassium Chloride 20 MEQ in Premix Bag 1 BAG IVPB SCH (22:30)
[2020-07-20] MEDS ORDERED: Aspirin 325 mg Enteric Coated Tablet PO SCH (22:30)
[2020-07-20] MEDS ORDERED: Dextrose 50% Abboject 50 ML SYRINGE SLOW IVP PRN (22:49)
[2020-07-20] MEDS ORDERED: Nitroglycerin 0.4 MG TAB (25 Tab Bottle) SL PRN (22:49)
[2020-07-20] MEDS ORDERED: Dextrose 5% in Water 1,000 ML IV PRN (22:49)
[2020-07-20] MEDS ORDERED: Aspirin 325 MG TAB ONE (23:16)
[2020-07-20] MEDS ORDERED: Potassium Chloride 20 MEQ TAB ONE (23:16)
[2020-07-20] MEDS ORDERED: Potassium Chloride 20 MEQ/100 ML PREMIX BAG ONE ×2 (23:17→23:35)
[2020-07-20 23:23] LABS: Troponin I 0.051 ng/mL (< 0.028)
[2020-07-20] MEDS ORDERED: traMADol HCl 50 MG TAB ONE (23:27)
[2020-07-20] MEDS: traMADol HCl 50 MG TAB PO PRN (23:29)
[2020-07-20] MEDS ORDERED: HumaLOG 300 UNITS/3 ML VIAL SC SCH (23:59)
[2020-07-21] MEDS ORDERED: HumaLOG 300 UNITS/3 ML VIAL ONE (00:26)
[2020-07-21] MEDS: Lactated Ringer's 1,000 ML IV SCH ×5 (00:39→15:04)
[2020-07-21 01:59] LABS: Anion Gap 15 mmol/L (10-20); BUN (Urea Nitrogen) 38 mg/dL (8.9-20.6); Calc. Creatinine Clearance 0 mL/min (70-130); Calcium 9.1 mg/dL (7.8-10.44); Carbon Dioxide 24 mmol/L (22-29); Chloride 94 mmol/L (98-107); Potassium 3.4 mmol/L (3.5-5.1); Sodium 130 mmol/L (136-145)
[2020-07-21 02:01] LABS: Troponin I 0.039 ng/mL (< 0.028)
[2020-07-21 02:05] LABS: Glucose 609 mg/dL (70-105)
[2020-07-21] MEDS ORDERED: HumaLOG 300 UNITS/3 ML VIAL SC SCH (03:15)
[2020-07-21] MEDS ORDERED: Potassium Chloride 20 MEQ TAB PO SCH (03:30)
[2020-07-21] MEDS ORDERED: Potassium Chloride 40 MEQ in Lactated Ringer's 1,000 ML IV SCH (03:30)
[2020-07-21] MEDS ORDERED: Insulin Glargine 30 UNITS in Pre-Filled Syringe 1 EACH SC SCH ×2 (03:30→21:00)
[2020-07-21] MEDS ORDERED: Potassium Chloride 20 MEQ TAB ONE (03:46)
[2020-07-21] MEDS ORDERED: traMADol HCl 50 MG TAB ONE (06:28)
[2020-07-21] MEDS: traMADol HCl 50 MG TAB PO PRN ×3 (06:35→22:25)
--- NOTE | 2020-07-21 07:14 | PDOC.FM ---
- Subjective Subjective: Mr. Baez is doing well this morning although he continues to complain of L shoulder pain, minimally improved. He seems disinterested in being here and is resistant to much treatment. - Objective Result Diagrams: 07/20/20 19:12 07/21/20 07:57 Phys Exam - Physical Examination Constitutional: NAD Neck: supple Respiratory: clear to auscultation bilateral Cardiovascular: RRR, no significant murmur Neurological: non-focal, moves all 4 limbs Psychiatric: normal affect Skin: no rash Dx/Plan - Plan Plan: This is a 45M who presented for b/l LE weakness that resulted in a fall, but was found to be in HHS. Hyperosmolar hyperglycemia syndrome Initial glucose 788, elevated serum osmolality 318, negative b-hydroxybutyrate 0.24 - no evidence for DKA. - continue fluid resuscitation with 1.5x mIVF: LR @ 250 cc/hr - will need to titrate insulin to meet needs; discharged on 50u + 30u lantus last admission 04/2020 - Accu-checks q2h, therefore will likely need admission to IMCU - NPO until BG <300 Hypokalemia K 3.4 on admission. - K repletion started prior to insulin administration - 40 meq PO + 100 meq IV - repeat CMP 0800, then BMP q4h - continue to replete as needed Indeterminate troponin Asymptomatic - although pain may be masked by severe diabetic neuropathy. EKG with no ST changes. - continue to trend troponin x 3 - telemetry monitoring - ASA 325 mg - increase atorvastatin to 40mg KAIDEN on CKD3b Cr 3.1 on admission, baseline 1.8. Likely 2/2 volume depletion with HHS. - 1.5x mIVF as above - hold home HCTZ - avoid nephrotoxic drugs - Monitor renal function with am labs Pseudohyponatremia Initial Na 129 on labs, 140 when corrected for severe hyperglycemia. - no intervention needed at this time - continue to monitor labs Lower extremity weakness Most likely due to HHS and DM neuropathy. Low suspicion for stroke or spinal cord pathology given gradual onset - tx HHS as above - PT/OT consulted Diabetic neuropathy Poorly controlled DM likely contributing to perceived leg weakness and difficulty walking. - A1c in 04/2020 was 14 - will continue home gabapentin 100 mg BID - would likely benefit from increased dose if renal function tolerates LVH, possible HFpEF - Last echo 04/2020 - EF 55-60% - Recommend OP sleep study - Improved BP control - CXR & BNP nml HTN Hypertensive. Medication non-compliance may be contributing factor. - continue home amlodipine - d/c Metoprolol and start Coreg at 3.125mg BID given hx of HF HLD - will increase atorvastatin 20mg to 40mg L shoulder pain - No gross deformity on exam, negative XR in ER. - Likely mild soft tissue trauma s/p fall although would also consider referred cardiac pain in setting of indeterminate troponin. - tylenol, tramadol PRN for pain GERD - Gastroparesis a likely contributing factor - Consider Reglan once eating again - Continue home Pepsid CANDICE - Likely, based on clinical sxs - Could be contributing to LVH - Recommend OP sleep study Poor health literacy with medication non-compliance Non-compliance partially due to unfamiliarity with how to self-administer insulin using pens. - diabetes education during stay and prior to discharge Marijuana abuse Approximately every other day use - encourage cessation GERD - continue home pepcid Disposition/LOS: Dispo: LOS > 2 MN , inpt tele Diet: NPO IVF: LR @ 250 cc/hr DVT ppx: lovenox GI ppx: home pepcid Code: Full
[2020-07-21] MEDS ORDERED: Labetalol HCl 100 MG/20 ML VIAL SLOW IVP SCH ×2 (08:45→23:00)
[2020-07-21] MEDS: Carvedilol 3.125 MG TAB PO SCH ×2 (08:52→16:04)
[2020-07-21] MEDS ORDERED: Labetalol HCl 100 MG/20 ML VIAL ONE (08:52)
[2020-07-21] MEDS ORDERED: Metoprolol Tartrate 50 MG TAB PO SCH (09:00)
[2020-07-21] MEDS ORDERED: HumaLOG 300 UNITS/3 ML VIAL SC PRN ×2 (09:18)
[2020-07-21 09:20] LABS: ALT (SGPT) 37 U/L (8-55); AST (SGOT) 36 U/L (5-34); Albumin 3.4 g/dL (3.5-5.0); Alkaline Phosphatase 250 U/L (40-110); Anion Gap 19 mmol/L (10-20); BUN (Urea Nitrogen) 36 mg/dL (8.9-20.6); Bilirubin, Total 0.4 mg/dL (0.2-1.2); Calc. Creatinine Clearance 0 mL/min (70-130); Calcium 9.3 mg/dL (7.8-10.44); Carbon Dioxide 18 mmol/L (22-29); Chloride 102 mmol/L (98-107); Glucose 366 mg/dL (70-105); Potassium 4.4 mmol/L (3.5-5.1); Protein, Total 7.4 g/dL (6.0-8.3); Sodium 135 mmol/L (136-145)
[2020-07-21] MEDS ORDERED: Aspirin Chewable 81 MG TAB ONE (09:50)
[2020-07-21] MEDS ORDERED: Enoxaparin Sodium 40 MG/0.4 ML SYRINGE ONE (09:50)
[2020-07-21] MEDS ORDERED: Famotidine 20 MG TAB ONE (09:50)
[2020-07-21] MEDS: Amlodipine 10 MG TAB PO SCH (10:12)
[2020-07-21] MEDS: Aspirin 81 mg Enteric Coated Tablet PO SCH (10:12)
[2020-07-21] MEDS: Enoxaparin Sodium 40 MG/0.4 ML SYRINGE SC SCH (10:12)
[2020-07-21] MEDS: Gabapentin 100 MG CAP PO SCH ×2 (10:13→21:29)
[2020-07-21] MEDS: Famotidine 20 MG TAB PO SCH (10:13)
[2020-07-21 10:54] LABS: Hep C IgG Ab Non-Reactive (NonReactive); Hep C Index 0.08 S/CO (0-0.79)
[2020-07-21 13:31] VITALS: BMI 40.3
[2020-07-21] MEDS ORDERED: Ondansetron ODT 4 MG TAB PO PRN (13:31)
[2020-07-21] MEDS ORDERED: Ondansetron PF 4 MG/2 ML Vial IVP PRN (13:31)
--- NOTE | 2020-07-21 14:01 | HP ---
HISTORY OF PRESENT ILLNESS: Mr. Baez is a 45-year-old black male with a history of type 2 diabetes. He presented after having an episode of foot weakness associated with numbness and tingling that occurred over the last two weeks. When brought to the ER, he was noticed to have very high blood glucose reading with no acidosis or anion gap, suggesting hyperosmolar hyperglycemic syndrome. He was admitted for treatment. PHYSICAL EXAMINATION: GENERAL: He is awake, alert, in no distress. VITAL SIGNS: His blood pressure is 145/90, pulse rate 92, respirations 20, O2 saturation on room air is 96%. He is afebrile. EAR, NOSE, AND THROAT: No erythema, no exudate. Mucous membranes are dry. NECK: Supple. CARDIAC: Heart rhythm regular. No gallop or murmur noted. LUNGS: Clear without rales or wheezes. No respiratory distress. ABDOMEN: Flat and soft without guarding, rebound, or rigidity. LUNGS: Clear without rales or wheezes. NEUROLOGIC: No focal deficits. LABORATORY DATA: hemoglobin 13.5, hematocrit 39.3. His chemistries on admission, sodium was 129, potassium 3.4, chloride 88, bicarb 26, BUN 41, creatinine 3.10, blood glucose was 788. His liver enzymes except for an elevated alkaline phosphatase were normal. His troponins were nondiagnostic at 0.047 and 0.051. His beta hydroxybutyrate was normal at 0.24. ASSESSMENT: Hyperglycemic hyperosmolar syndrome. PLAN: Admit, fluids, insulin, monitor labs. Job ID: [id number]
[2020-07-21] MEDS ORDERED: Sodium Chloride 0.9% 1,000 ML IV SCH (14:45)
[2020-07-21] MEDS ORDERED: Dextrose 5 % And 0.9 % NaCl 1,000 ML IV SCH (15:15)
[2020-07-21] MEDS: HUMULIN R 100 UNITS in Sodium Chloride 0.9% 100 ML IVPB SCH (15:52)
[2020-07-21 17:23] LABS: Hemoglobin A1c Greater than 14.0 % (4.0-6.0)
[2020-07-21 17:31] LABS: Anion Gap 13 mmol/L (10-20); BUN (Urea Nitrogen) 33 mg/dL (8.9-20.6); Calc. Creatinine Clearance 79 mL/min (70-130); Calcium 8.9 mg/dL (7.8-10.44); Carbon Dioxide 24 mmol/L (22-29); Chloride 102 mmol/L (98-107); Glucose 361 mg/dL (70-105); Potassium 3.4 mmol/L (3.5-5.1); Sodium 136 mmol/L (136-145)
[2020-07-21] MEDS: Sodium Chloride 0.9% 1,000 ML IV SCH ×2 (18:08→22:36)
[2020-07-21] MEDS: Acetaminophen 325 MG TAB PO PRN (21:28)
[2020-07-21 22:12] LABS: Anion Gap 19 mmol/L (10-20); BUN (Urea Nitrogen) 32 mg/dL (8.9-20.6); Calc. Creatinine Clearance 79 mL/min (70-130); Calcium 8.9 mg/dL (7.8-10.44); Carbon Dioxide 18 mmol/L (22-29); Chloride 106 mmol/L (98-107); Glucose 139 mg/dL (70-105); Potassium 4.5 mmol/L (3.5-5.1); Sodium 138 mmol/L (136-145)
[2020-07-22 02:23] LABS: Anion Gap 14 mmol/L (10-20); BUN (Urea Nitrogen) 31 mg/dL (8.9-20.6); Calc. Creatinine Clearance 91 mL/min (70-130); Calcium 8.6 mg/dL (7.8-10.44); Carbon Dioxide 23 mmol/L (22-29); Chloride 103 mmol/L (98-107); Glucose 189 mg/dL (70-105); Potassium 3.5 mmol/L (3.5-5.1); Sodium 136 mmol/L (136-145)
[2020-07-22] MEDS: HUMULIN R 100 UNITS in Sodium Chloride 0.9% 100 ML IVPB SCH (03:34)
[2020-07-22] MEDS: Sodium Chloride 0.9% 1,000 ML IV SCH (03:36)
[2020-07-22] MEDS ORDERED: Dextrose 5 % And 0.9 % NaCl 1,000 ML IV SCH (05:45)
[2020-07-22] MEDS ORDERED: Insulin Glargine 46 UNITS in Pre-Filled Syringe 1 EACH SC SCH (05:45)
--- NOTE | 2020-07-22 06:00 | PDOC.FM ---
- Subjective Subjective: Mr. Baez is doing well this morning and his only complaint at this time continues to be pain in his Lt shoulder although he says the Tramadol helps. He is also complaining of a small headache. - Objective Vital Signs & Weight: Vital Signs (12 hours) Temp Pulse BP Pulse Ox 07/22/20 03:38 97.0 F L 07/22/20 01:04 96 168/121 H 07/22/20 00:33 97.4 F L 07/21/20 20:00 96 07/21/20 19:40 97.6 F Weight Weight 154.221 kg Most Recent Monitor Data Heart Rate from ECG 90 NIBP 155/111 NIBP BP-Mean 125 Respiration from ECG 20 SpO2 93 I&O: 07/20/20 07/21/20 07/22/20 06:59 06:59 06:59 Intake Total 1362 Balance 1362 Result Diagrams: 07/20/20 19:12 07/22/20 06:11 Phys Exam - Physical Examination Constitutional: NAD Neck: supple, full ROM Respiratory: clear to auscultation bilateral Cardiovascular: RRR, no significant murmur Gastrointestinal: soft, non-tender, no distention, positive bowel sounds Musculoskeletal: pulses present (1+ in b/l dp) 1+ pitting edema in b/l LE up to knees Neurological: non-focal, moves all 4 limbs Psychiatric: normal affect, A&O x 3 Skin: no rash Dx/Plan - Plan Plan: This is a 45M who presented for b/l LE weakness that resulted in a fall, but was found to be in HHS. Hyperosmolar hyperglycemia syndrome No evidence for DKA. - continue fluid resuscitation with NS 200 cc/hr - Will add 46u Lantus am and transition off infusion this morning - discharged on 50u + 30u lantus last admission 04/2020 - Accu-checks q2h. If BGs continue to be <200, will space out further - CC diet since BG <300 Hypokalemia - BMP q4h - continue to replete as needed KAIDEN on CKD3b Cr 3.1 on admission, baseline 1.8-2.0. Likely 2/2 volume depletion with HHS. - mIVF as above - hold home HCTZ - avoid nephrotoxic drugs - Monitor renal function with BMPs HTN Hypertensive. Medication non-compliance may be contributing factor. - continue home amlodipine but d/c home Metoprolol * Consider change from amlodipine to nifedipine if greater BP control is needed - Coreg at 3.125mg BID given concern for possible HF - prn Labetalol for severe range BPs LVH, possible HFpEF - Last echo 04/2020 - EF 55-60% - Recommend OP sleep study - Improved BP control - CXR & BNP nml L shoulder pain - Pt's biggest concern. No gross deformity on exam, negative XR in ER. - Likely mild soft tissue trauma s/p fall although would also consider referred cardiac pain in setting of indeterminate troponin. - tylenol, tramadol PRN for pain - Heating pad/ice pack and topical diclofenac ordered Lower extremity weakness Most likely due to HHS and DM neuropathy. Low suspicion for stroke or spinal cord pathology given gradual onset - tx HHS as above - PT/OT consulted Diabetic neuropathy Poorly controlled DM likely contributing to perceived leg weakness and difficulty walking. - A1c in 04/2020 was 14 - will continue home gabapentin 100 mg BID - would likely benefit from increased dose if renal function tolerates Indeterminate troponin Asymptomatic - although pain may be masked by severe diabetic neuropathy. EKG with no ST changes. - telemetry monitoring - ASA 325 mg - increase atorvastatin to 40mg HLD - will increase atorvastatin 20mg to 40mg GERD - Gastroparesis a likely contributing factor - Consider Reglan once eating again - Continue home Pepsid CANDICE - Likely, based on clinical sxs - Could be contributing to LVH - Recommend OP sleep study Poor health literacy with medication non-compliance Non-compliance partially due to unfamiliarity with how to self-administer insulin using pens. - diabetes education during stay and prior to discharge Marijuana abuse Approximately every other day use - encourage cessation Pseudohyponatremia, resolved - continue to monitor with BMPs Disposition/LOS: Dispo: LOS > 2 MN, inpt IMCU Diet: NPO IVF: NS @ 200 cc/hr DVT ppx: lovenox GI ppx: home pepcid Code: Full
[2020-07-22] MEDS: traMADol HCl 50 MG TAB PO PRN ×2 (06:17→16:22)
[2020-07-22] MEDS ORDERED: D5 1/2 NS w/20 mEq KCL 1,000 ML IV SCH (06:30)
[2020-07-22 06:31] LABS: Anion Gap 13 mmol/L (10-20); BUN (Urea Nitrogen) 30 mg/dL (8.9-20.6); Calc. Creatinine Clearance 91 mL/min (70-130); Calcium 8.4 mg/dL (7.8-10.44); Carbon Dioxide 22 mmol/L (22-29); Chloride 106 mmol/L (98-107); Glucose 165 mg/dL (70-105); Potassium 3.9 mmol/L (3.5-5.1); Sodium 137 mmol/L (136-145)
[2020-07-22] MEDS ORDERED: Potassium Chloride 20 MEQ in Premix Bag 1 BAG IVPB SCH (07:00)
[2020-07-22] MEDS: Amlodipine 10 MG TAB PO SCH (08:16)
[2020-07-22] MEDS: Famotidine 20 MG TAB PO SCH (08:16)
[2020-07-22] MEDS: Aspirin 81 mg Enteric Coated Tablet PO SCH (08:16)
[2020-07-22] MEDS: Enoxaparin Sodium 40 MG/0.4 ML SYRINGE SC SCH (08:17)
[2020-07-22] MEDS: Carvedilol 3.125 MG TAB PO SCH (08:17)
[2020-07-22] MEDS: Gabapentin 100 MG CAP PO SCH ×2 (08:18→20:48)
[2020-07-22] MEDS: Sodium Chloride 0.45% 1,000 ML IV SCH ×2 (08:58→14:13)
[2020-07-22] MEDS ORDERED: Carvedilol 6.25 MG TAB PO SCH (10:15)
[2020-07-22 10:22] LABS: Anion Gap 14 mmol/L (10-20); BUN (Urea Nitrogen) 29 mg/dL (8.9-20.6); Calc. Creatinine Clearance 86 mL/min (70-130); Calcium 8.4 mg/dL (7.8-10.44); Carbon Dioxide 20 mmol/L (22-29); Chloride 105 mmol/L (98-107); Glucose 256 mg/dL (70-105); Potassium 4.3 mmol/L (3.5-5.1); Sodium 135 mmol/L (136-145)
[2020-07-22] MEDS: Diclofenac 1% 100 GM GEL TP SCH ×3 (14:06→20:49)
[2020-07-22 15:17] LABS: Anion Gap 15 mmol/L (10-20); BUN (Urea Nitrogen) 30 mg/dL (8.9-20.6); Calc. Creatinine Clearance 85 mL/min (70-130); Calcium 8.7 mg/dL (7.8-10.44); Carbon Dioxide 23 mmol/L (22-29); Chloride 104 mmol/L (98-107); Glucose 127 mg/dL (70-105); Potassium 3.7 mmol/L (3.5-5.1); Sodium 138 mmol/L (136-145)
--- NOTE | 2020-07-22 16:00 | PRG ---
DATE OF SERVICE: 07/22/2020 This morning, Mr. Baez is resting in bed comfortably and is in good spirits. He is in no distress. He was admitted initially with hyperosmolar hyperglycemic syndrome and has made a good recovery with fluids and insulin. His current labs reveal a sodium 138, potassium 3.7, chloride 104, bicarb 23, BUN 30, creatinine 2.43. His glucose this morning was 168. This compares to his admission numbers wherein his glucose was 788 forty eight hours ago with a BUN of 41 and creatinine of 3.10. We will continue fluids and now switching him to subcu insulin as well as having begun a diet. We can get him, I think, to a regular medical bed out of the MICU. Job ID: [id number]
[2020-07-22] MEDS ORDERED: HumaLOG 300 UNITS/3 ML VIAL SC PRN (16:20)
[2020-07-22] MEDS: Carvedilol 6.25 MG TAB PO SCH (16:22)
[2020-07-22] MEDS: HumaLOG 300 UNITS/3 ML VIAL SC PRN (17:03)
--- NOTE | 2020-07-23 05:35 | PDOC.FM ---
- Subjective Subjective: Mr. Baez is not feeling well this morning. He says he has had multiple episodes of vomiting which he thinks are d/t GERD for which he has not been receiving Omeprazole in the hospital. He says he typically takes Omeprazole BID and that he sometimes vomits if he does not take anything for it. Otherwise, he says his shoulder pain continues to be helped by the Tramadol but not by the Diclofenac cream. - Objective Vital Signs & Weight: Vital Signs (12 hours) Temp Pulse Ox 07/22/20 20:00 97.6 F 94 L Weight Weight 154.221 kg Most Recent Monitor Data Heart Rate from ECG 86 NIBP 168/118 NIBP BP-Mean 134 Respiration from ECG 19 SpO2 98 I&O: 07/21/20 07/22/20 07/23/20 06:59 06:59 06:59 Intake Total 4194.8 2275 Output Total 500 1550 Balance 3694.8 725 Result Diagrams: 07/20/20 19:12 07/22/20 14:50 Phys Exam - Physical Examination Constitutional: NAD Neck: supple, full ROM Respiratory: clear to auscultation bilateral Difficult to auscultate Gastrointestinal: soft, non-tender, no distention, positive bowel sounds Musculoskeletal: no edema (Non-pitting LE edema b/l) Neurological: non-focal, moves all 4 limbs Psychiatric: normal affect, A&O x 3 Skin: no rash Dx/Plan - Plan Plan: This is a 45M who presented for b/l LE weakness that resulted in a fall, but was found to be in HHS. Hyperosmolar hyperglycemia syndrome No evidence for DKA. - IVF d/c - Off the insulin drip. Will increase am Lantus. Will likely add pm Lantus dose tonight * discharged on 50u + 30u lantus last admission 04/2020 - Aggressive SSI + Bedtime SSI - Accu-checks ACHS. - CC diet since BG <300 Hypokalemia - am BMPs - continue to replete as needed KAIDEN on CKD3b Cr 3.1 on admission, baseline 1.8-2.0. Likely 2/2 volume depletion with HHS. - hold home HCTZ - avoid nephrotoxic drugs - am BMPs to monitor renal function HTN Hypertensive. Medication non-compliance may be contributing factor. - D/c home Amlodipine. Start Nifedipine for better BP control - On Coreg 12.5mg, equivalent to home Metoprolol dose LVH, possible HFpEF - Last echo 04/2020 - EF 55-60% - CXR & BNP nml - Recommend OP sleep study - Attempting improved BP control L shoulder pain - Pt's biggest concern. No gross deformity on exam, negative XR in ER. - Likely mild soft tissue trauma s/p fall although would also consider referred cardiac pain in setting of indeterminate troponin. - tylenol, tramadol PRN, heating pad/ice pack, topical diclofenac for pain Lower extremity weakness Most likely due to HHS and DM neuropathy. Low suspicion for stroke or spinal cord pathology given gradual onset - tx HHS as above - PT/OT consulted Diabetic neuropathy Poorly controlled DM likely contributing to perceived leg weakness and difficulty walking. - A1c in 04/2020 was 14 - will continue home gabapentin 100 mg BID - would likely benefit from increased dose if renal function tolerates Indeterminate troponin Asymptomatic - although pain may be masked by severe diabetic neuropathy. EKG with no ST changes. - telemetry monitoring - ASA 325 mg - increase atorvastatin to 40mg HLD - will increase atorvastatin 20mg to 40mg GERD - Pt states his GERD leads to vomiting if not treated. Gastroparesis a likely contributing factor - Continue home Pepsid. Zofran for nausea. - Start Reglan CANDICE - Likely, based on clinical sxs - Could be contributing to LVH - Recommend OP sleep study Poor health literacy with medication non-compliance Non-compliance partially due to unfamiliarity with how to self-administer insulin using pens. - diabetes education, including use of insulin pens Marijuana abuse Approximately every other day use - encourage cessation Pseudohyponatremia, resolved - continue to monitor with BMPs Disposition/LOS: Dispo: Pt can likely be moved from IMCU to medical. Discharge pending improved BP and BG control. Diet: CC 1800kcal IVF: N/A DVT ppx: lovenox GI ppx: home pepcid Code: Full
[2020-07-23] MEDS: HumaLOG 300 UNITS/3 ML VIAL SC PRN (07:15)
[2020-07-23] MEDS ORDERED: HumaLOG 300 UNITS/3 ML VIAL SC PRN (08:57)
[2020-07-23] MEDS ORDERED: NIFEdipine XL 30 MG TAB PO SCH (09:00)
[2020-07-23] MEDS: Carvedilol 6.25 MG TAB PO SCH ×2 (10:01→17:30)
[2020-07-23] MEDS: Aspirin 81 mg Enteric Coated Tablet PO SCH (10:02)
[2020-07-23] MEDS: Gabapentin 100 MG CAP PO SCH ×2 (10:02→20:36)
[2020-07-23] MEDS: Famotidine 20 MG TAB PO SCH (10:03)
[2020-07-23] MEDS: Enoxaparin Sodium 40 MG/0.4 ML SYRINGE SC SCH (10:03)
[2020-07-23] MEDS: Metoclopramide 10 MG/10 ML UDCUP PO SCH ×2 (10:03→20:37)
[2020-07-23] MEDS: Diclofenac 1% 100 GM GEL TP SCH ×4 (10:03→20:44)
[2020-07-23] MEDS: Insulin Glargine 50 UNITS in Pre-Filled Syringe 1 EACH SC SCH (10:04)
[2020-07-23] MEDS: HumaLOG 300 UNITS/3 ML VIAL SC SCH ×3 (11:43→20:39)
[2020-07-23 12:59] LABS: Anion Gap 17 mmol/L (10-20); BUN (Urea Nitrogen) 28 mg/dL (8.9-20.6); Calc. Creatinine Clearance 84 mL/min (70-130); Carbon Dioxide 20 mmol/L (22-29); Chloride 105 mmol/L (98-107); Sodium 137 mmol/L (136-145)
[2020-07-23 13:00] LABS: Calcium 9.5 mg/dL (7.8-10.44); Glucose 273 mg/dL (70-105)
[2020-07-23] MEDS: traMADol HCl 50 MG TAB PO PRN ×2 (13:13→20:37)
[2020-07-23 13:19] LABS: SARS-CoV-2 MS2 Positive; SARS-CoV-2 N Gene Negative; SARS-CoV-2 S Gene Negative; SARS-CoV-2 by NAA Not Detected (NotDetected); SARS-CoV-2 orf1ab Negative
[2020-07-23] MEDS ORDERED: Insulin Glargine 15 UNITS in Pre-Filled Syringe 1 EACH SC SCH (21:00)
[2020-07-23] MEDS ORDERED: Insulin Glargine 20 UNITS in Pre-Filled Syringe 1 EACH SC SCH (21:00)
[2020-07-24] MEDS: Acetaminophen 325 MG TAB PO PRN ×2 (04:59→20:44)
[2020-07-24] MEDS: traMADol HCl 50 MG TAB PO PRN ×2 (05:00→20:44)
--- NOTE | 2020-07-24 06:11 | PDOC.FM ---
- Subjective Subjective: Patient is resting comfortably in bed. No events overnight. He is stating that he is burping a lot this morning, and having GERD, but notes thte medications he got yesterday really helped with this. - Objective MAR Reviewed: Yes Vital Signs & Weight: Vital Signs (12 hours) Temp Pulse Resp BP Pulse Ox 07/24/20 04:00 98.3 F 101 H 20 182/114 H 99 07/24/20 02:00 97 07/24/20 00:00 98.3 F 93 18 159/100 H 97 07/23/20 19:58 98.2 F 95 18 159/100 H 94 L 07/23/20 18:15 98.2 F 96 20 161/99 H 92 L Weight Weight 154.221 kg Most Recent Monitor Data Heart Rate from ECG 108 NIBP 182/81 NIBP BP-Mean 114 Respiration from ECG 15 SpO2 100 I&O: 07/22/20 07/23/20 07/24/20 06:59 06:59 06:59 Intake Total 4194.8 2275 480 Output Total 500 1550 1050 Balance 3694.8 725 -570 Result Diagrams: 07/20/20 19:12 07/24/20 06:43 Phys Exam - Physical Examination Constitutional: NAD HEENT: PERRLA, moist MMs Respiratory: no wheezing, clear to auscultation bilateral Cardiovascular: RRR, no significant murmur Gastrointestinal: soft, non-tender, positive bowel sounds Dx/Plan - Plan Plan: This is a 45M who presented for b/l LE weakness that resulted in a fall, but was found to be in HHS. Hyperosmolar hyperglycemia syndrome No evidence for DKA. - IVF d/c - Off the insulin drip. Resumed on home lantus dose * discharged on 50u + 30u lantus last admission 04/2020 - Aggressive SSI + Bedtime SSI - Accu-checks ACHS Hypokalemia - am BMPs - continue to replete as needed KAIDEN on CKD3b Cr 3.1 on admission, baseline 1.8-2.4. Likely 2/2 volume depletion with HHS. - hold home HCTZ - avoid nephrotoxic drugs - am BMPs to monitor renal function HTN Hypertensive. Medication non-compliance may be contributing factor. - D/c home Amlodipine - Started Nifedipine 07/15, will increase to 60 today - On Coreg 12.5mg, equivalent to home Metoprolol dose LVH, possible HFpEF - Last echo 04/2020 - EF 55-60% - CXR & BNP nml - Recommend OP sleep study - Attempting improved BP control L shoulder pain - Pt's biggest concern. No gross deformity on exam, negative XR in ER. - Likely mild soft tissue trauma s/p fall although would also consider referred cardiac pain in setting of indeterminate troponin. - tylenol, tramadol PRN, heating pad/ice pack, topical diclofenac for pain Lower extremity weakness Most likely due to HHS and DM neuropathy. Low suspicion for stroke or spinal cord pathology given gradual onset - tx HHS as above - PT/OT consulted Diabetic neuropathy Poorly controlled DM likely contributing to perceived leg weakness and difficulty walking. - A1c in 04/2020 was 14 - will continue home gabapentin 100 mg BID - would likely benefit from increased dose if renal function tolerates Indeterminate troponin Asymptomatic - although pain may be masked by severe diabetic neuropathy. EKG with no ST changes. - telemetry monitoring - ASA 325 mg - increase atorvastatin to 40mg HLD - will increase atorvastatin 20mg to 40mg GERD - Pt states his GERD leads to vomiting if not treated. Gastroparesis a likely contributing factor - Continue home Pepsid. Zofran for nausea. - Start Reglan CANDICE - Likely, based on clinical sxs - Could be contributing to LVH - Recommend OP sleep study Poor health literacy with medication non-compliance Non-compliance partially due to unfamiliarity with how to self-administer insulin using pens. - diabetes education, including use of insulin pens Marijuana abuse Approximately every other day use - encourage cessation Pseudohyponatremia, resolved - continue to monitor with BMPs Disposition/LOS: Dispo: Discharge pending improved BP and BG control. Diet: CC 1800kcal IVF: N/A DVT ppx: lovenox GI ppx: home pepcid Code: Full Addendum - Attending - Attending Attestation Date/Time: 07/24/202041 I personally evaluated the patient and discussed the management with Dr. Shah. I agree with the History, Examination, Assessment and Plan documented above with any addition or exceptions noted below. HHS- increase insulin to get sugars at goal HTN- severely uncontrolled- increase nifedipine and monitor.
[2020-07-24 07:06] LABS: Anion Gap 16 mmol/L (10-20); BUN (Urea Nitrogen) 28 mg/dL (8.9-20.6); Calc. Creatinine Clearance 84 mL/min (70-130); Calcium 8.6 mg/dL (7.8-10.44); Carbon Dioxide 20 mmol/L (22-29); Chloride 107 mmol/L (98-107); Glucose 361 mg/dL (70-105); Sodium 139 mmol/L (136-145)
--- NOTE | 2020-07-24 07:28 | PRG ---
DATE OF SERVICE: 07/23/2020 ADDENDUM: This is an addendum to the note of Dr. Ortega. I have examined the patient. I have read over the note of Dr. Ortega and agree with her assessment and plan. Job ID: [id number]
[2020-07-24] MEDS ORDERED: HumaLOG 300 UNITS/3 ML VIAL SC PRN (08:07)
[2020-07-24] MEDS: Metoclopramide 10 MG/10 ML UDCUP PO SCH ×2 (08:50→20:45)
[2020-07-24] MEDS: Gabapentin 100 MG CAP PO SCH ×2 (08:51→20:39)
[2020-07-24] MEDS: NIFEdipine XL 60 MG TAB PO SCH (08:52)
[2020-07-24] MEDS: Aspirin 81 mg Enteric Coated Tablet PO SCH (08:52)
[2020-07-24] MEDS: Famotidine 20 MG TAB PO SCH (08:52)
[2020-07-24] MEDS: Carvedilol 6.25 MG TAB PO SCH ×2 (08:52→16:54)
[2020-07-24] MEDS: Enoxaparin Sodium 40 MG/0.4 ML SYRINGE SC SCH (08:53)
[2020-07-24] MEDS ORDERED: hydrALAZINE 20 MG/ML VIAL SLOW IVP PRN (09:08)
[2020-07-24] MEDS: Insulin Glargine 50 UNITS in Pre-Filled Syringe 1 EACH SC SCH (11:35)
[2020-07-24] MEDS: HumaLOG 300 UNITS/3 ML VIAL SC PRN (11:36)
[2020-07-24] MEDS: Diclofenac 1% 100 GM GEL TP SCH ×3 (11:39→20:48)
[2020-07-24] MEDS: HumaLOG 300 UNITS/3 ML VIAL SC SCH (14:12)
--- NOTE | 2020-07-24 16:53 | EKG ---
Test Reason : Blood Pressure : / mmHG Vent. Rate : 090 BPM Atrial Rate : 090 BPM P-R Int : 204 ms QRS Dur : 120 ms QT Int : 394 ms P-R-T Axes : 034 -61 071 degrees QTc Int : 481 ms Normal sinus rhythm Left anterior fascicular block Left ventricular hypertrophy with QRS widening Cannot rule out Inferior infarct (masked by fascicular block?) , age undetermined Abnormal ECG Confirmed by ALEKSANDAR DELAROSA ([id number]), deputy editor in chief RAUL GAVIN ([id number]) on 07/24/2020 4:53:06 PM Referred By: Confirmed By:ALEKSANDAR Taylor
[2020-07-24] MEDS: Insulin Glargine 30 UNITS in Pre-Filled Syringe 1 EACH SC SCH (20:46)
[2020-07-25] MEDS: Acetaminophen 325 MG TAB PO PRN (06:05)
[2020-07-25] MEDS: traMADol HCl 50 MG TAB PO PRN (06:05)
[2020-07-25] MEDS: HumaLOG 300 UNITS/3 ML VIAL SC PRN ×3 (06:08→16:35)
[2020-07-25] MEDS: Famotidine 20 MG TAB PO SCH (06:11)
[2020-07-25] MEDS: Metoclopramide 10 MG/10 ML UDCUP PO SCH ×2 (06:12→21:18)
--- NOTE | 2020-07-25 06:17 | PDOC.FM ---
- Subjective Subjective: Patient is resting comfortably in bed. States that he is still having left shoulder pain but it is improved from when he first came in. Notes that he hasn't worked with PT with his shoulder, which I encouraged. He denies chest pain, shortness of breath, abdominal pain, f/chills. Patient is refusing morning labs to be drawn including CBC/CMP. - Objective MAR Reviewed: Yes Vital Signs & Weight: Vital Signs (12 hours) Temp Pulse Resp BP Pulse Ox 07/25/20 05:21 98 07/25/20 04:58 161/97 H 07/25/20 04:01 91 07/25/20 04:00 180/104 H 07/25/20 03:42 98.1 F 91 20 185/119 H 98 07/25/20 00:21 98.0 F 87 18 171/94 H 99 07/24/20 19:26 98.7 F 92 16 154/97 H 98 Weight Weight 154.221 kg Most Recent Monitor Data Heart Rate from ECG 108 NIBP 182/81 NIBP BP-Mean 114 Respiration from ECG 15 SpO2 100 I&O: 07/23/20 07/24/20 07/25/20 06:59 06:59 06:59 Intake Total 2275 1180 Output Total 1550 2300 Balance 725 -1120 Result Diagrams: 07/20/20 19:12 07/24/20 06:43 Phys Exam - Physical Examination Constitutional: NAD HEENT: PERRLA, moist MMs Respiratory: no wheezing, clear to auscultation bilateral Cardiovascular: RRR, no significant murmur Gastrointestinal: soft, non-tender, positive bowel sounds 1+ b/l pitting edema Neurological: non-focal, moves all 4 limbs Psychiatric: normal affect, A&O x 3 Skin: no rash Dx/Plan - Plan Plan: This is a 45M who presented for b/l LE weakness that resulted in a fall, but was found to be in HHS. Hyperosmolar hyperglycemia syndrome No evidence for DKA. - IVF d/c - Off the insulin drip. Resumed on home lantus dose * discharged on 50u + 30u lantus last admission 04/2020 - Aggressive SSI + Bedtime SSI; received 20u humalogue over last 24 hours - Accu-checks ACHS - will continue to monitor sugars today and make adjustments to regimen as necessary Hypokalemia - am BMPs - continue to replete as needed - patient refusing morning labs 07/25 KAIDEN on CKD3b Cr 3.1 on admission, baseline 1.8-2.4. Likely 2/2 volume depletion with HHS. - hold home HCTZ - avoid nephrotoxic drugs - am BMPs to monitor renal function - patient refusing morning labs 07/25 HTN Hypertensive. Medication non-compliance may be contributing factor. - D/c home Amlodipine - Started Nifedipine 07/15, will increase to 60 today - On Coreg 12.5mg, equivalent to home Metoprolol dose --> increased to 25mg dose this am - continue to monitor LVH, possible HFpEF - Last echo 04/2020 - EF 55-60% - CXR & BNP nml - Recommend OP sleep study - Attempting improved BP control L shoulder pain - Pt's biggest concern. No gross deformity on exam, negative XR in ER. - Likely mild soft tissue trauma s/p fall although would also consider referred cardiac pain in setting of indeterminate troponin. - tylenol, tramadol PRN, heating pad/ice pack, topical diclofenac for pain - recommended working with PT with shoulder pain Lower extremity weakness Most likely due to HHS and DM neuropathy. Low suspicion for stroke or spinal cord pathology given gradual onset - tx HHS as above - PT/OT consulted Diabetic neuropathy Poorly controlled DM likely contributing to perceived leg weakness and difficulty walking. - A1c in 04/2020 was 14 - will continue home gabapentin 100 mg BID - would likely benefit from increased dose if renal function tolerates Indeterminate troponin Asymptomatic - although pain may be masked by severe diabetic neuropathy. EKG with no ST changes. - telemetry monitoring - ASA 325 mg - increase atorvastatin to 40mg HLD - will increase atorvastatin 20mg to 40mg GERD - Pt states his GERD leads to vomiting if not treated. Gastroparesis a likely contributing factor - Continue home Pepsid. Zofran for nausea. - Start Reglan CANDICE - Likely, based on clinical sxs - Could be contributing to LVH - Recommend OP sleep study Poor health literacy with medication non-compliance Non-compliance partially due to unfamiliarity with how to self-administer insulin using pens. - diabetes education, including use of insulin pens Marijuana abuse Approximately every other day use - encourage cessation Pseudohyponatremia, resolved - continue to monitor with BMPs Disposition/LOS: Dispo: Discharge pending improved BP and BG control. Diet: CC 1800kcal IVF: N/A DVT ppx: lovenox GI ppx: home pepcid Code: Full Addendum - Attending - Attending Attestation Date/Time: 07/25/20 [id number] I personally evaluated the patient and discussed the management with Dr. Shah I agree with the History, Examination, Assessment and Plan documented above with any addition or exceptions noted below. Patient refused BMP today to evaluate. Continue insulin and adjust in the am. Continue to titrate up bp meds. Expect d/c in the next few days when we get sugars <200 consistently and bp <160/100.
[2020-07-25] MEDS: Diclofenac 1% 100 GM GEL TP SCH ×4 (08:27→21:20)
[2020-07-25] MEDS: Aspirin 81 mg Enteric Coated Tablet PO SCH (08:28)
[2020-07-25] MEDS: Carvedilol 25 MG TAB PO SCH ×2 (08:28→16:33)
[2020-07-25] MEDS: Gabapentin 100 MG CAP PO SCH ×2 (08:28→21:19)
[2020-07-25] MEDS: NIFEdipine XL 60 MG TAB PO SCH (08:28)
[2020-07-25] MEDS: Enoxaparin Sodium 40 MG/0.4 ML SYRINGE SC SCH (08:28)
[2020-07-25] MEDS: Insulin Glargine 50 UNITS in Pre-Filled Syringe 1 EACH SC SCH (08:29)
[2020-07-25] MEDS: Fluticasone Propionate Nasal Spray 16 gm Bottle NASAL SCH (16:30)
[2020-07-25 16:43] LABS: Anion Gap 16 mmol/L (10-20); BUN (Urea Nitrogen) 25 mg/dL (8.9-20.6); Calc. Creatinine Clearance 94 mL/min (70-130); Calcium 8.6 mg/dL (7.8-10.44); Carbon Dioxide 21 mmol/L (22-29); Chloride 108 mmol/L (98-107); Glucose 150 mg/dL (70-105); Potassium 4.2 mmol/L (3.5-5.1); Sodium 141 mmol/L (136-145)
[2020-07-25] MEDS: Insulin Glargine 30 UNITS in Pre-Filled Syringe 1 EACH SC SCH (21:19)
--- NOTE | 2020-07-26 06:15 | PDOC.FM ---
- Subjective Subjective: Mr. Baez is doing well this morning but states he vomited multiple times overnight. He states Omeprazole is the only thing that helps and that the Reglan has not been helping. He states his L shoulder continues to hurt but is feeling better, overall. He states his /gf can teach him to use the pens and states he recognizes how important it is to get his DM under control. - Objective Vital Signs & Weight: Vital Signs (12 hours) Temp Pulse Resp BP Pulse Ox 07/26/20 05:18 97.7 F 94 18 167/119 H 98 07/26/20 00:00 98.6 F 87 18 164/99 H 95 07/25/20 20:42 98.1 F 80 20 148/101 H 96 Weight Weight 154.221 kg Most Recent Monitor Data Heart Rate from ECG 108 NIBP 182/81 NIBP BP-Mean 114 Respiration from ECG 15 SpO2 100 I&O: 07/24/20 07/25/20 07/26/20 06:59 06:59 06:59 Intake Total 1180 820 Output Total 2300 750 Balance -1120 70 Result Diagrams: 07/20/20 19:12 07/26/20 05:12 Phys Exam - Physical Examination Constitutional: NAD Neck: supple, full ROM Neurological: non-focal, moves all 4 limbs Psychiatric: normal affect, A&O x 3 Dx/Plan - Plan Plan: This is a 45M who presented for b/l LE weakness that resulted in a fall, but was found to be in HHS. Hyperosmolar hyperglycemia syndrome No evidence for DKA. - Lantus 50u am + Lantus 30u pm + 18u Humalog from aggressive SSI * Will increase pm Lantus to 40u - Aggressive SSI + Bedtime SSI ordered - Accu-checks ACHS - will continue to monitor sugars and make adjustments to regimen as necessary KAIDEN on CKD3b Cr 3.1 on admission, baseline 1.8-2.4. Likely 2/2 volume depletion with HHS. - hold home HCTZ - avoid nephrotoxic drugs - am BMPs to monitor renal function HTN Hypertensive. Medication non-compliance may be contributing factor. - Nifedipine 60mg. Will increase to 90mg - Coreg 25mg BID - continue to be uncontrolled. Will continue to monitor and adjust therapy as needed LVH, possible HFpEF - Last echo 04/2020 - EF 55-60% - Recommend OP sleep study - Attempting improved BP control L shoulder pain - Pt's biggest concern. No gross deformity on exam, negative XR in ER. - Likely mild soft tissue trauma s/p fall. - Unlikely referred cardiac pain given continuous nature and improvement with Tramadol - tylenol, tramadol PRN, heating pad/ice pack, topical diclofenac for pain - recommended working with PT with shoulder pain Lower extremity weakness Most likely due to HHS and DM neuropathy. Low suspicion for stroke or spinal cord pathology given gradual onset - tx HHS as above - PT/OT consulted Diabetic neuropathy Poorly controlled DM likely contributing to perceived leg weakness and difficulty walking. - A1c in 04/2020 was 14 - will continue home gabapentin 100 mg BID - would likely benefit from increased dose if renal function tolerates Indeterminate troponin Asymptomatic - although pain may be masked by severe diabetic neuropathy. EKG with no ST changes. - telemetry monitoring - ASA 325 mg - atorvastatin 40mg HLD - atorvastatin 40mg GERD - Pt states his GERD leads to vomiting if not treated. Gastroparesis a likely contributing factor - Continue home Pepsid. Zofran for nausea. Reglan CANDICE - Likely, based on clinical sxs - Could be contributing to LVH - Recommend OP sleep study Poor health literacy with medication non-compliance Non-compliance partially due to unfamiliarity with how to self-administer insulin using pens. - diabetes education, including use of insulin pens Marijuana abuse Approximately every other day use - encourage cessation Pseudohyponatremia, resolved - continue to monitor with BMPs Disposition/LOS: Dispo: Likely d/c today is BG continue to be <200. Diet: CC 1800kcal IVF: N/A DVT ppx: lovenox GI ppx: home pepcid Code: Full
[2020-07-26 06:56] LABS: Anion Gap 16 mmol/L (10-20); BUN (Urea Nitrogen) 27 mg/dL (8.9-20.6); Calc. Creatinine Clearance 95 mL/min (70-130); Calcium 8.9 mg/dL (7.8-10.44); Carbon Dioxide 20 mmol/L (22-29); Chloride 108 mmol/L (98-107); Glucose 165 mg/dL (70-105); Sodium 140 mmol/L (136-145)
[2020-07-26] MEDS ORDERED: Carvedilol 25 MG TAB PO SCH ×3 (08:36→17:00)
[2020-07-26] MEDS: Gabapentin 100 MG CAP PO SCH (08:37)
[2020-07-26] MEDS: Aspirin 81 mg Enteric Coated Tablet PO SCH (08:38)
[2020-07-26] MEDS: Famotidine 20 MG TAB PO SCH (08:38)
[2020-07-26] MEDS: Enoxaparin Sodium 40 MG/0.4 ML SYRINGE SC SCH (08:39)
[2020-07-26] MEDS: Metoclopramide 10 MG/10 ML UDCUP PO SCH (08:39)
[2020-07-26] MEDS: Fluticasone Propionate Nasal Spray 16 gm Bottle NASAL SCH (08:41)
[2020-07-26] MEDS ORDERED: NIFEdipine XL 90 MG TAB PO SCH ×3 (09:00)
[2020-07-26] MEDS: HumaLOG 300 UNITS/3 ML VIAL SC PRN (11:40)
[2020-07-26] MEDS: Insulin Glargine 50 UNITS in Pre-Filled Syringe 1 EACH SC SCH (11:41)
[2020-07-26] MEDS: Carvedilol 25 MG TAB PO SCH (12:38)
[2020-07-26 15:51] VITALS: BP 135/87; TEMP 98.2
[2020-07-26] MEDS ORDERED: Insulin Glargine 40 UNITS in Pre-Filled Syringe 1 EACH SC SCH (21:00)
--- NOTE | 2020-07-27 12:05 | DIS ---
DATE OF ADMISSION: 07/20/2020 DATE OF DISCHARGE: 07/26/2020 RESIDENT: Brooke Ortega MD ADMITTING ATTENDING: Michel Dietrich MD DISCHARGE ATTENDING: Michel Dietrich MD CONSULT: None. PROCEDURES: Shoulder x-ray (07/20), chest x-ray (07/20). PRIMARY DIAGNOSES: Hyperosmolar hyperglycemic state in type 2 diabetes mellitus, indeterminate troponin/acute coronary syndrome rule out, acute kidney injury on chronic kidney disease. SECONDARY DIAGNOSES: Diabetes mellitus neuropathy, heart failure with preserved ejection fraction, obstructive sleep apnea, gastroesophageal reflux disease, and chronic noncompliance. DISCHARGE MEDICATIONS: 1. Carvedilol 25 mg p.o. b.i.d.-WM. 2. Lantus SoloStar 50 units sc q.a.m. 3. Lantus SoloStar 40 units sc at bedtime. 4. Nifedipine 90 mg p.o. daily. 5. Tylenol 650 mg q.6h p.r.n. 6. Humalog 10 units sc t.i.d.-WM p.r.n. 7. Gabapentin 100 mg p.o. b.i.d. 8. ASA 81 mg p.o. daily. 9. Atorvastatin 20 mg p.o. daily. 10. Famotidine 20 mg p.o. b.i.d. Discontinued medications: 1. Hydrochlorothiazide 25 mg p.o. daily. 2. Metoprolol tartrate 50 mg p.o. b.i.d. 3. Amlodipine 10 mg p.o. daily. 4. Lantus 50 units sc q.a.m. 5. Lantus 30 units sc at bedtime. HISTORY OF PRESENT ILLNESS/HOSPITAL COURSE: This is a 45-year-old male, who was brought to the ED by EMS after a fall, 2/2 bilateral lower extremity weakness. He endorsed worsening numbness, tingling, weakness for 2 weeks. He admitted noncompliance with medications including his insulin as well as polydipsia, polyuria, and bilateral lower extremity pitting edema. He endorsed significant left shoulder pain as a result of the fall. Shoulder x-ray taken in the ED showed a potentially mildly displaced acromial fracture that could also be a developmental variant. Chest x-ray taken on arrival was negative. Upon arrival, his glucose was 788 with a serum osmolality of 318, and negative beta-hydroxybutyrate of 0.24, such that he was not in DKA. Regardless, he was sent to the [facility] for close blood sugar monitoring and for initiation of DKA protocol, including insulin drip. On admission, he was found to have pseudohypokalemia with a potassium of 3.4. He was also found to have indeterminate troponins although he was asymptomatic. EKG showed no ST changes. His creatinine on arrival was 3.1 with a baseline of 1.8-2.2, which resolved with fluid resuscitation. He was also hypertensive on exam with noncompliance likely a contributing factor. He was transitioned from insulin drip to subcutaneous on 07/22. When he was given a diet and able to tolerate p.o., he developed recurrent nausea and vomiting, which he states is due to his GERD when he is not able to take omeprazole. There was concern for gastroparesis contributing to this issue, so he was started on Reglan. The patient felt the Reglan did not help and he continued to vomit, so omeprazole was added, which relieved the issue. Ultimately, control was regained on his blood sugars and his blood pressure, so the patient was discharged. DISPOSITION: Stable. DISCHARGE INSTRUCTIONS: Location: Home. Diet: Diabetic diet. Activity: As tolerated. Followup: The patient is encouraged to follow up with his PCP, Dr. Wilfrido Shelby, in 7 to 10 days. Job ID: [id number]
== END 2020-07-26 19:34 | disposition home or self-care (01) | DRG 682 ==
LOC: ERS 18:26 → ERHOLD 20:49 → OBSVTOIN 22:49 → IMCU/EMU 07-21 12:59 → T4-B 07-23 14:15
PROVIDERS: ADMIT Family Medicine; ATTEND Family Medicine
DX: N17.9 Acute kidney failure, unspecified (principal); E11.00 Type 2 diabetes mellitus with hyperosmolarity without nonketotic hyperglycemic-hyperosmolar coma (NKHHC); I13.0 Hypertensive heart and chronic kidney disease with heart failure and stage 1 through stage 4 chronic kidney disease, or unspecified chronic kidney disease; E87.1 Hypo-osmolality and hyponatremia; I50.32 Chronic diastolic (congestive) heart failure; E78.5 Hyperlipidemia, unspecified; R77.8 Other specified abnormalities of plasma proteins; E87.6 Hypokalemia; R53.1 Weakness; E11.40 Type 2 diabetes mellitus with diabetic neuropathy, unspecified; N18.32 Chronic kidney disease, stage 3b; K21.9 Gastro-esophageal reflux disease without esophagitis; E11.22 Type 2 diabetes mellitus with diabetic chronic kidney disease; Z79.4 Long term (current) use of insulin; Z79.899 Other long term (current) drug therapy; Z79.82 Long term (current) use of aspirin; G47.33 Obstructive sleep apnea (adult) (pediatric); F12.10 Cannabis abuse, uncomplicated; Z91.14 Patient's other noncompliance with medication regimen; E86.0 Dehydration; E11.43 Type 2 diabetes mellitus with diabetic autonomic (poly)neuropathy; K31.84 Gastroparesis; Z20.828 Contact with and (suspected) exposure to other viral communicable diseases
CPT/HCPCS: 36415; 36416; 71045; 80048; 80053; 82010; 82553; 83036; 83735; 83880; 83930; 84484; 85025; 86803; 87635; 93005; J0360; J1650; J1815; J2405; J3480; J3490; J7120; U0003

== ENCOUNTER 2020-12-28 09:51 | Inpatient (IN) | payer OTHER ==
[2020-12-28 10:47] LABS: Actual Bicarbonate (HCO3v) 23 mEq/L (22-28); Analyzer IN Cardio ER; Base Excess -1.1 mEq/L (-2.0 to +3.0); Calcium, Ionized (venous) 1.08 mmol/L (1.16-1.32); Chloride (VBG) 93 mmol/L (98-106); Hemoglobin (Hb) 14.2 g/dL (13.2-17.3); Potassium (VBG) 3.65 mmol/L (3.70-5.30); Sodium 130.5 mmol/L (133-146); pH (venous) 7.41 (7.32-7.43)
[2020-12-28] MEDS ORDERED: Cefepime 2 GM VIAL ONE (10:48)
[2020-12-28] MEDS ORDERED: VANCOMYCIN 2 GRAM/400 ML BAG 2 GM in Premix Bag 1 BAG IVPB SCH (11:00)
[2020-12-28] MEDS ORDERED: Lidocaine 1% w/Epinephrine 1:100K 20 ML VIAL ONE (11:09)
[2020-12-28 11:14] LABS: #Lymphocytes 1.3 thou/uL (1.20-3.40); #Monocytes 0.8 thou/uL (0.11-0.59); #Neutrophils 6.4 thou/uL (1.40-6.50); %Basophils 0.1 % (0.0-1.0); %Eosinophils 0.1 % (0.0-10.0); %Lymphocytes 15.4 % (21.0-51.0); %Monocytes 9.1 % (0.0-10.0); %Neutrophils 75.3 % (42.0-75.0); Hemoglobin 13.1 g/dL (14.0-18.0); Mean Corpuscular HGB CONC 32.8 g/dL (32.0-36.0); Mean Corpuscular Hemoglobin 26.4 pg (27.0-31.0); Mean Corpuscular Volume 80.4 fL (78.0-98.0); Mean Platelet Volume 12.7 fL (7.4-10.4); Platelet Count 133 thou/uL (130-400); RBC Distribution Width 14.3 % (11.5-14.5); Red Blood Cell (RBC) Count 4.98 mill/uL (4.70-6.10); White Blood Cell (WBC) Count 8.4 thou/uL (4.8-10.8)
[2020-12-28 11:18] LABS: ALT (SGPT) 17 U/L (8-55); AST (SGOT) 20 U/L (5-34); Albumin 3.4 g/dL (3.5-5.0); Alkaline Phosphatase 169 U/L (40-110); Anion Gap 17 mmol/L (10-20); BUN (Urea Nitrogen) 34 mg/dL (8.9-20.6); Bilirubin, Total 0.5 mg/dL (0.2-1.2); Calc. Creatinine Clearance 0 mL/min (70-130); Calcium 9.1 mg/dL (7.8-10.44); Carbon Dioxide 25 mmol/L (22-29); Chloride 92 mmol/L (98-107); Globulin 4.8 g/dL (2.4-3.5); Potassium 3.6 mmol/L (3.5-5.1); Protein, Total 8.2 g/dL (6.0-8.3); Sodium 130 mmol/L (136-145)
[2020-12-28 11:31] LABS: CKMB 1.3 ng/mL (0-6.6)
[2020-12-28 11:46] LABS: Glucose 669 mg/dL (70-105)
[2020-12-28] MEDS ORDERED: Lantus 1000 UNITS/10 ML VIAL SC SCH (13:00)
[2020-12-28 13:06] LABS: Bacteria/HPF None Seen HPF (None Seen); Bilirubin Negative (Negative); Blood, Urine 1+ (Negative); Clarity Clear (Clear); Glucose, Urine (Dipstick) Greater than 1000 mg/dL (Negative); Ketone, Urine Negative (Negative); Leukocyte Negative Leu/uL (Negative); Nitrite Negative (Negative); Protein, Urine (Dipstick) 50 mg/dL (Neg-Trace); RBC/HPF 0-3 HPF (0-3); Specific Gravity, Urine 1.018 (1.002-1.036); Squamous Epithelial None Seen HPF (0-3); Urobilinogen Normal mg/dL (Less than 2); WBC/HPF 0-3 HPF (0-3); pH, Urine 5.5 (5.0-9.0)
[2020-12-28] MEDS ORDERED: Dextrose 50% Abboject 50 ML SYRINGE SLOW IVP PRN (13:21)
[2020-12-28] MEDS ORDERED: Dextrose 5% in Water 1,000 ML IV PRN (13:21)
[2020-12-28 13:39] LABS: SARS-CoV-2 NAA Rapid Test DETECTED (NotDetected)
[2020-12-28 14:26] LABS: Syphilis Antibody Nonreactive (Nonreactive)
[2020-12-28 14:27] LABS: HIV (1/2) Antibody/Antigen Non-Reactive (NonReactive); HIV 1/2 INDEX 0.13 S/CO (<1.00)
[2020-12-28] MEDS ORDERED: Lactated Ringer's 1,000 ML IV SCH (14:45)
[2020-12-28] MEDS ORDERED: Ondansetron PF 4 MG/2 ML Vial ONE (15:12)
[2020-12-28 15:40] LABS: Troponin I 0.041 ng/mL (< 0.028)
[2020-12-28 17:06] LABS: Troponin I 0.047 ng/mL (< 0.028)
[2020-12-28] MEDS: Doxycycline 100 MG CAP PO SCH ×2 (17:34→21:12)
[2020-12-28] MEDS: HumaLOG 300 UNITS/3 ML VIAL SC PRN ×2 (17:38→21:14)
[2020-12-28] MEDS: Lactated Ringer's 1,000 ML IV SCH (21:12)
[2020-12-28] MEDS: Famotidine 20 MG TAB PO SCH (21:12)
[2020-12-28] MEDS: Gabapentin 100 MG CAP PO SCH (21:12)
[2020-12-28] MEDS: Lantus 1000 UNITS/10 ML VIAL SC SCH (21:14)
[2020-12-28] MEDS: Ondansetron ODT 4 MG TAB PO PRN (23:50)
[2020-12-28] MEDS: Acetaminophen 325 MG TAB PO PRN (23:52)
[2020-12-29] MEDS: Ondansetron ODT 4 MG TAB PO PRN (05:32)
[2020-12-29 05:36] LABS: Anion Gap 13 mmol/L (10-20); BUN (Urea Nitrogen) 31 mg/dL (8.9-20.6); Calc. Creatinine Clearance 62 mL/min (70-130); Calcium 8.6 mg/dL (7.8-10.44); Carbon Dioxide 21 mmol/L (22-29); Chloride 104 mmol/L (98-107); Glucose 224 mg/dL (70-105); Potassium 3.3 mmol/L (3.5-5.1); Sodium 135 mmol/L (136-145)
[2020-12-29 05:52] LABS: #Basophils 0.1 thou/uL (0.0-0.2); #Lymphocytes 1.5 thou/uL (1.20-3.40); #Monocytes 0.6 thou/uL (0.11-0.59); #Neutrophils 5.3 thou/uL (1.40-6.50); %Basophils 0.9 % (0.0-1.0); %Eosinophils 0.2 % (0.0-10.0); %Lymphocytes 20.3 % (21.0-51.0); %Monocytes 7.6 % (0.0-10.0); Hemoglobin 11.9 g/dL (14.0-18.0); Mean Corpuscular HGB CONC 33.3 g/dL (32.0-36.0); Mean Corpuscular Hemoglobin 27.2 pg (27.0-31.0); Mean Corpuscular Volume 81.7 fL (78.0-98.0); Platelet Count 110 thou/uL (130-400); Platelet Morphology Comment Appears Decreased; Red Blood Cell (RBC) Count 4.36 mill/uL (4.70-6.10); White Blood Cell (WBC) Count 7.4 thou/uL (4.8-10.8)
[2020-12-29] MEDS: Lactated Ringer's 1,000 ML IV SCH (06:05)
[2020-12-29] MEDS: HumaLOG 300 UNITS/3 ML VIAL SC PRN ×3 (06:05→17:01)
[2020-12-29] MEDS ORDERED: Potassium Chloride 20 MEQ TAB PO SCH (07:45)
[2020-12-29] MEDS ORDERED: NIFEdipine XL 90 MG TAB PO SCH (09:00)
[2020-12-29] MEDS: Carvedilol 25 MG TAB PO SCH ×2 (09:04→16:50)
[2020-12-29] MEDS: Doxycycline 100 MG CAP PO SCH ×2 (09:04→20:48)
[2020-12-29] MEDS: Aspirin 81 mg Enteric Coated Tablet PO SCH (09:05)
[2020-12-29] MEDS: Benzonatate 100 MG CAP PO SCH ×3 (09:05→20:47)
[2020-12-29] MEDS: Atorvastatin Calcium 20 MG TAB PO SCH (09:05)
[2020-12-29] MEDS: Enoxaparin Sodium 40 MG/0.4 ML SYRINGE SC SCH (09:05)
[2020-12-29] MEDS: Cefepime 2 GM in Sodium Chloride 0.9% 100 ML IVPB SCH (09:06)
[2020-12-29] MEDS: Lantus 1000 UNITS/10 ML VIAL SC SCH ×2 (09:07→20:49)
[2020-12-29] MEDS: Gabapentin 100 MG CAP PO SCH ×2 (09:10→20:47)
[2020-12-29] MEDS: Acetaminophen 325 MG TAB PO PRN (09:24)
[2020-12-29] MEDS ORDERED: Vancomycin 1.5 GRAM/300 ML BAG 1.5 GM in Premix Bag 1 BAG IVPB SCH (11:00)
[2020-12-29] MEDS ORDERED: Cefepime 2 GM in Sodium Chloride 0.9% 100 ML IVPB SCH (11:00)
[2020-12-29] MEDS ORDERED: CLINDAMYCIN PHOSPHATE 1% TP SCH (12:00)
[2020-12-29] MEDS: Guaifenesin DM 100-10/5 ML UDCUP PO PRN (12:25)
[2020-12-29] MEDS: CLINDAMYCIN PHOSPHATE 1% TP SCH (20:47)
[2020-12-29] MEDS: Famotidine 20 MG TAB PO SCH (20:48)
[2020-12-30] MEDS: Acetaminophen 325 MG TAB PO PRN ×2 (03:45→09:47)
[2020-12-30] MEDS: Ondansetron ODT 4 MG TAB PO PRN (03:45)
[2020-12-30] MEDS: Guaifenesin DM 100-10/5 ML UDCUP PO PRN ×2 (03:52→18:48)
[2020-12-30 05:26] LABS: #Lymphocytes 1.2 thou/uL (1.20-3.40); #Monocytes 0.4 thou/uL (0.11-0.59); #Neutrophils 6.9 thou/uL (1.40-6.50); %Basophils 0.4 % (0.0-1.0); %Eosinophils 0.2 % (0.0-10.0); %Lymphocytes 13.6 % (21.0-51.0); %Monocytes 5.1 % (0.0-10.0); %Neutrophils 80.7 % (42.0-75.0); Hemoglobin 11.8 g/dL (14.0-18.0); Mean Corpuscular HGB CONC 34.1 g/dL (32.0-36.0); Mean Corpuscular Hemoglobin 27.9 pg (27.0-31.0); Mean Corpuscular Volume 81.7 fL (78.0-98.0); Mean Platelet Volume 11.5 fL (7.4-10.4); Platelet Count 97 thou/uL (130-400); Red Blood Cell (RBC) Count 4.24 mill/uL (4.70-6.10); White Blood Cell (WBC) Count 8.6 thou/uL (4.8-10.8)
[2020-12-30 05:43] LABS: Anion Gap 13 mmol/L (10-20); BUN (Urea Nitrogen) 27 mg/dL (8.9-20.6); Calc. Creatinine Clearance 64 mL/min (70-130); Calcium 8.8 mg/dL (7.8-10.44); Carbon Dioxide 20 mmol/L (22-29); Chloride 107 mmol/L (98-107); Glucose 144 mg/dL (70-105); Potassium 3.5 mmol/L (3.5-5.1); Sodium 136 mmol/L (136-145)
[2020-12-30] MEDS: Aspirin 81 mg Enteric Coated Tablet PO SCH (09:34)
[2020-12-30] MEDS: Benzonatate 100 MG CAP PO SCH ×3 (09:34→19:56)
[2020-12-30] MEDS: Gabapentin 100 MG CAP PO SCH ×2 (09:34→19:55)
[2020-12-30] MEDS: Atorvastatin Calcium 20 MG TAB PO SCH (09:34)
[2020-12-30] MEDS: NIFEdipine XL 60 MG TAB PO SCH (09:35)
[2020-12-30] MEDS: Enoxaparin Sodium 40 MG/0.4 ML SYRINGE SC SCH (09:35)
[2020-12-30] MEDS: CLINDAMYCIN PHOSPHATE 1% TP SCH ×2 (09:35→19:54)
[2020-12-30] MEDS: Doxycycline 100 MG CAP PO SCH ×2 (09:35→19:55)
[2020-12-30] MEDS: Carvedilol 25 MG TAB PO SCH ×2 (09:35→17:00)
[2020-12-30] MEDS: Lantus 1000 UNITS/10 ML VIAL SC SCH ×2 (09:36→19:55)
[2020-12-30] MEDS: Cefepime 2 GM in Sodium Chloride 0.9% 100 ML IVPB SCH (09:42)
[2020-12-30 10:26] LABS: Vancomycin, Trough 20.6 ug/mL
[2020-12-30] MEDS ORDERED: VANCOMYCIN 1.25 GM/250 ML BAG 1.25 GM in Premix Bag 1 BAG IVPB SCH (11:00)
[2020-12-30] MEDS: HumaLOG 300 UNITS/3 ML VIAL SC PRN ×2 (12:34→17:00)
[2020-12-30] MEDS: Calcium Carbonate 500 MG ChewTAB PO PRN (14:05)
[2020-12-30] MEDS ORDERED: Acetaminophen 500 MG TAB PO SCH (17:00)
[2020-12-30] MEDS: Famotidine 20 MG TAB PO SCH (19:56)
[2020-12-31] MEDS: Acetaminophen 500 MG TAB PO PRN ×2 (03:46→09:36)
[2020-12-31] MEDS: Guaifenesin DM 100-10/5 ML UDCUP PO PRN (03:46)
[2020-12-31] MEDS: Ondansetron ODT 4 MG TAB PO PRN (03:57)
[2020-12-31] MEDS ORDERED: Ibuprofen 200 MG TAB PO PRN (08:16)
[2020-12-31] MEDS: CLINDAMYCIN PHOSPHATE 1% TP SCH ×2 (09:12→20:51)
[2020-12-31] MEDS: Cefepime 2 GM in Sodium Chloride 0.9% 100 ML IVPB SCH (09:13)
[2020-12-31] MEDS: Enoxaparin Sodium 40 MG/0.4 ML SYRINGE SC SCH (09:14)
[2020-12-31] MEDS: Carvedilol 25 MG TAB PO SCH ×2 (09:15→17:25)
[2020-12-31] MEDS: NIFEdipine XL 60 MG TAB PO SCH (09:15)
[2020-12-31] MEDS: Lantus 1000 UNITS/10 ML VIAL SC SCH ×2 (09:15→20:49)
[2020-12-31] MEDS: Benzonatate 100 MG CAP PO SCH ×3 (09:15→20:40)
[2020-12-31] MEDS: Gabapentin 100 MG CAP PO SCH ×2 (09:16→20:41)
[2020-12-31] MEDS: Doxycycline 100 MG CAP PO SCH ×2 (09:16→20:41)
[2020-12-31] MEDS: Aspirin 81 mg Enteric Coated Tablet PO SCH (09:16)
[2020-12-31] MEDS: Atorvastatin Calcium 20 MG TAB PO SCH (09:16)
[2020-12-31] MEDS ORDERED: Lisinopril 10 MG TAB PO SCH (10:00)
[2020-12-31] MEDS: HumaLOG 300 UNITS/3 ML VIAL SC PRN ×3 (11:32→20:50)
[2020-12-31] MEDS ORDERED: Furosemide 20 MG/2 ML VIAL SLOW IVP SCH (11:45)
[2020-12-31] MEDS: methylPREDNISolone Sod Succ/PF 125 MG in Sodium Chloride 0.9% 250 ML 250 ML IVPB SCH (14:28)
[2020-12-31 15:11] LABS: Actual Bicarbonate (HCO3a) 20.6 mEq/L (22-28); Base Excess (BEa) -3.6 mEq/L (-2.0 to +3.0); CO2 Tension 34.3 mmHg (35.0-45.0); Calcium, Ionized (arterial) 1.16 mmol/L (1.12-1.30); Carboxyhemoglobin (COHb) 0.3 gm% (0.0-3.0); Potassium - ABG Lab 3.23 mmol/L (3.70-5.30)
[2020-12-31 15:13] LABS: O2 Tension (PaO2), arterial 44.2 mmHg (80.0-100.0)
[2020-12-31 15:14] LABS: ALV-art Gradient 340.725 mmHg (0-20); Puncture Site RRA
[2020-12-31 15:29] LABS: #Lymphocytes 1.4 thou/uL (1.20-3.40); #Monocytes 0.5 thou/uL (0.11-0.59); #Neutrophils 8.4 thou/uL (1.40-6.50); %Basophils 0.1 % (0.0-1.0); %Eosinophils 0.2 % (0.0-10.0); %Monocytes 4.4 % (0.0-10.0); %Neutrophils 81.2 % (42.0-75.0); Hemoglobin 11.9 g/dL (14.0-18.0); Mean Corpuscular HGB CONC 34.2 g/dL (32.0-36.0); Mean Corpuscular Hemoglobin 27.8 pg (27.0-31.0); Mean Corpuscular Volume 81.4 fL (78.0-98.0); Mean Platelet Volume 12.6 fL (7.4-10.4); Platelet Count 94 thou/uL (130-400); RBC Distribution Width 14.3 % (11.5-14.5); Red Blood Cell (RBC) Count 4.27 mill/uL (4.70-6.10); White Blood Cell (WBC) Count 10.3 thou/uL (4.8-10.8)
[2020-12-31 15:41] LABS: Anion Gap 15 mmol/L (10-20); BUN (Urea Nitrogen) 30 mg/dL (8.9-20.6); Calc. Creatinine Clearance 58 mL/min (70-130); Calcium 8.5 mg/dL (7.8-10.44); Carbon Dioxide 19 mmol/L (22-29); Chloride 107 mmol/L (98-107); Glucose 160 mg/dL (70-105); Potassium 3.5 mmol/L (3.5-5.1); Sodium 137 mmol/L (136-145)
[2020-12-31 19:53] LABS: SARS-CoV-2 IgG Ab Non-Reactive (NonReactive); SARS-CoV-2 IgG Index 0.06 S/CO (< 1.40)
[2020-12-31] MEDS: Famotidine 20 MG TAB PO SCH (20:41)
[2020-12-31] MEDS: Colchicine 0.6 MG TAB PO SCH (20:41)
[2020-12-31 22:36] LABS: Actual Bicarbonate (HCO3a) 21.9 mEq/L (22-28); Base Excess (BEa) -2.4 mEq/L (-2.0 to +3.0); Calcium, Ionized (arterial) 1.15 mmol/L (1.12-1.30); Carboxyhemoglobin (COHb) 0.2 gm% (0.0-3.0); Hemoglobin (Hb) 12.2 g/dL (14.0-18.0)
[2020-12-31 22:45] LABS: O2 Tension (PaO2), arterial 27.3 mmHg (80.0-100.0)
[2020-12-31 22:47] LABS: Puncture Site LRA
[2021-01-01] MEDS: Melatonin 3 MG TAB PO PRN ×2 (01:23→20:00)
[2021-01-01] MEDS: NIFEdipine XL 60 MG TAB PO SCH ×3 (10:20→14:32)
[2021-01-01] MEDS: Carvedilol 25 MG TAB PO SCH ×3 (10:21→14:35)
[2021-01-01] MEDS: Colchicine 0.6 MG TAB PO SCH ×3 (10:21→20:00)
[2021-01-01] MEDS: Gabapentin 100 MG CAP PO SCH ×4 (10:21→20:00)
[2021-01-01] MEDS: Atorvastatin Calcium 20 MG TAB PO SCH ×2 (10:21→14:24)
[2021-01-01] MEDS: Lisinopril 10 MG TAB PO SCH ×3 (10:21→14:33)
[2021-01-01] MEDS: Aspirin 81 mg Enteric Coated Tablet PO SCH ×2 (10:21→14:24)
[2021-01-01] MEDS: Doxycycline 100 MG CAP PO SCH ×4 (10:21→19:59)
[2021-01-01] MEDS: Lantus 1000 UNITS/10 ML VIAL SC SCH ×3 (10:22→20:01)
[2021-01-01] MEDS: Benzonatate 100 MG CAP PO SCH ×4 (10:22→20:00)
[2021-01-01] MEDS: Enoxaparin Sodium 40 MG/0.4 ML SYRINGE SC SCH ×2 (10:23→14:25)
[2021-01-01] MEDS: cefTRIAXone\\ROCEPHIN 2 GM in Sodium Chloride 0.9% 100 ML IVPB SCH (10:27)
[2021-01-01] MEDS: Cefepime 2 GM in Sodium Chloride 0.9% 100 ML IVPB SCH (10:29)
[2021-01-01] MEDS: CLINDAMYCIN PHOSPHATE 1% TP SCH ×2 (14:24→20:00)
[2021-01-01] MEDS: methylPREDNISolone Sod Succ/PF 125 MG in Sodium Chloride 0.9% 250 ML 250 ML IVPB SCH (14:31)
[2021-01-01] MEDS: Calcium Carbonate 500 MG ChewTAB PO PRN (14:32)
[2021-01-01] MEDS: HumaLOG 300 UNITS/3 ML VIAL SC PRN ×2 (16:56→20:21)
[2021-01-01] MEDS: Acetaminophen 500 MG TAB PO PRN (16:58)
[2021-01-01] MEDS: Guaifenesin DM 100-10/5 ML UDCUP PO PRN (18:35)
[2021-01-01] MEDS: Famotidine 20 MG TAB PO SCH (20:00)
[2021-01-02 05:39] LABS: #Lymphocytes 0.9 thou/uL (1.20-3.40); #Monocytes 0.5 thou/uL (0.11-0.59); #Neutrophils 10.2 thou/uL (1.40-6.50); %Eosinophils 0.2 % (0.0-10.0); %Lymphocytes 7.5 % (21.0-51.0); %Monocytes 4.6 % (0.0-10.0); %Neutrophils 87.7 % (42.0-75.0); Hemoglobin 12.5 g/dL (14.0-18.0); Mean Corpuscular HGB CONC 33.8 g/dL (32.0-36.0); Mean Corpuscular Hemoglobin 27.2 pg (27.0-31.0); Mean Corpuscular Volume 80.4 fL (78.0-98.0); Mean Platelet Volume 12.9 fL (7.4-10.4); Platelet Count 135 thou/uL (130-400); RBC Distribution Width 14.4 % (11.5-14.5); Red Blood Cell (RBC) Count 4.61 mill/uL (4.70-6.10); White Blood Cell (WBC) Count 11.7 thou/uL (4.8-10.8)
[2021-01-02 05:52] LABS: Anion Gap 16 mmol/L (10-20); BUN (Urea Nitrogen) 55 mg/dL (8.9-20.6); Calc. Creatinine Clearance 46 mL/min (70-130); Calcium 8.9 mg/dL (7.8-10.44); Carbon Dioxide 19 mmol/L (22-29); Chloride 103 mmol/L (98-107); Glucose 306 mg/dL (70-105); Potassium 4.2 mmol/L (3.5-5.1); Sodium 134 mmol/L (136-145)
[2021-01-02] MEDS: HumaLOG 300 UNITS/3 ML VIAL SC PRN ×2 (06:33→11:59)
[2021-01-02] MEDS ORDERED: Lactated Ringer's 500 ML IV SCH (08:15)
[2021-01-02] MEDS: Lantus 1000 UNITS/10 ML VIAL SC SCH ×2 (08:17→20:10)
[2021-01-02] MEDS: Colchicine 0.6 MG TAB PO SCH ×2 (08:23→19:46)
[2021-01-02] MEDS: Atorvastatin Calcium 20 MG TAB PO SCH (08:24)
[2021-01-02] MEDS: Doxycycline 100 MG CAP PO SCH ×2 (08:24→19:46)
[2021-01-02] MEDS: Benzonatate 100 MG CAP PO SCH ×3 (08:24→19:46)
[2021-01-02] MEDS: NIFEdipine XL 60 MG TAB PO SCH (08:24)
[2021-01-02] MEDS: Enoxaparin Sodium 40 MG/0.4 ML SYRINGE SC SCH (08:24)
[2021-01-02] MEDS: CLINDAMYCIN PHOSPHATE 1% TP SCH ×2 (08:25→20:10)
[2021-01-02] MEDS: Gabapentin 100 MG CAP PO SCH ×2 (08:25→19:46)
[2021-01-02] MEDS: Lisinopril 10 MG TAB PO SCH (08:25)
[2021-01-02] MEDS: Carvedilol 25 MG TAB PO SCH ×2 (08:25→16:07)
[2021-01-02] MEDS: Aspirin 81 mg Enteric Coated Tablet PO SCH (08:26)
[2021-01-02] MEDS: Lactated Ringer's 1,000 ML IV SCH ×3 (08:31→19:03)
[2021-01-02] MEDS: cefTRIAXone\\ROCEPHIN 2 GM in Sodium Chloride 0.9% 100 ML IVPB SCH (11:57)
[2021-01-02] MEDS: methylPREDNISolone Sod Succ/PF 125 MG in Sodium Chloride 0.9% 250 ML 250 ML IVPB SCH (16:07)
[2021-01-02] MEDS: Famotidine 20 MG TAB PO SCH (19:46)
[2021-01-03] MEDS: Lactated Ringer's 1,000 ML IV SCH ×2 (00:06→05:07)
[2021-01-03] MEDS: HumaLOG 300 UNITS/3 ML VIAL SC PRN ×3 (06:07→20:55)
[2021-01-03 06:24] LABS: Hemoglobin 12.9 g/dL (14.0-18.0); Mean Corpuscular HGB CONC 32.3 g/dL (32.0-36.0); Mean Corpuscular Hemoglobin 25.8 pg (27.0-31.0); Mean Corpuscular Volume 79.9 fL (78.0-98.0); Mean Platelet Volume 12.2 fL (7.4-10.4); Platelet Count 174 thou/uL (130-400); RBC Distribution Width 14.5 % (11.5-14.5); Red Blood Cell (RBC) Count 4.99 mill/uL (4.70-6.10); White Blood Cell (WBC) Count 9.6 thou/uL (4.8-10.8)
[2021-01-03 06:26] LABS: Band 3 % (5-11); Hypochromia SLIGHT = 6-15 cells (100X) (0-5/hpf); Lymphocytes 10 % (21-51); Monocytes 4 % (0-10); Neutrophil 83 % (42-75); Platelet Morphology Comment Appears Adequate
[2021-01-03 06:27] LABS: MDiff Complete? YES
[2021-01-03 06:32] LABS: Anion Gap 16 mmol/L (10-20); BUN (Urea Nitrogen) 61 mg/dL (8.9-20.6); Calc. Creatinine Clearance 53 mL/min (70-130); Calcium 8.7 mg/dL (7.8-10.44); Carbon Dioxide 17 mmol/L (22-29); Chloride 105 mmol/L (98-107); Glucose 176 mg/dL (70-105); Potassium 4.2 mmol/L (3.5-5.1); Sodium 134 mmol/L (136-145)
[2021-01-03] MEDS: CLINDAMYCIN PHOSPHATE 1% TP SCH ×2 (07:46→20:53)
[2021-01-03] MEDS: Enoxaparin Sodium 40 MG/0.4 ML SYRINGE SC SCH (07:46)
[2021-01-03] MEDS: Doxycycline 100 MG CAP PO SCH ×2 (07:46→20:58)
[2021-01-03] MEDS: Aspirin 81 mg Enteric Coated Tablet PO SCH (07:47)
[2021-01-03] MEDS: Atorvastatin Calcium 20 MG TAB PO SCH (07:47)
[2021-01-03] MEDS: Gabapentin 100 MG CAP PO SCH ×2 (07:47→20:57)
[2021-01-03] MEDS: Carvedilol 25 MG TAB PO SCH ×2 (07:48→17:46)
[2021-01-03] MEDS: Colchicine 0.6 MG TAB PO SCH ×2 (07:48→20:58)
[2021-01-03] MEDS: Lisinopril 10 MG TAB PO SCH (07:49)
[2021-01-03] MEDS: Benzonatate 100 MG CAP PO SCH ×3 (07:50→20:57)
[2021-01-03] MEDS: Lantus 1000 UNITS/10 ML VIAL SC SCH ×2 (07:50→20:54)
[2021-01-03] MEDS: cefTRIAXone\\ROCEPHIN 2 GM in Sodium Chloride 0.9% 100 ML IVPB SCH (11:13)
[2021-01-03] MEDS: methylPREDNISolone Sod Succ/PF 125 MG in Sodium Chloride 0.9% 250 ML 250 ML IVPB SCH (15:51)
[2021-01-03] MEDS: Famotidine 20 MG TAB PO SCH (20:58)
[2021-01-04 05:46] LABS: Hemoglobin 13.1 g/dL (14.0-18.0); Mean Corpuscular HGB CONC 34.5 g/dL (32.0-36.0); Mean Corpuscular Hemoglobin 27.9 pg (27.0-31.0); Mean Corpuscular Volume 80.9 fL (78.0-98.0); Mean Platelet Volume 11.9 fL (7.4-10.4); Platelet Count 179 thou/uL (130-400); RBC Distribution Width 14.3 % (11.5-14.5); White Blood Cell (WBC) Count 9.4 thou/uL (4.8-10.8)
[2021-01-04 06:00] LABS: ALT (SGPT) 26 U/L (8-55); AST (SGOT) 29 U/L (5-34); Albumin 2.9 g/dL (3.5-5.0); Alkaline Phosphatase 164 U/L (40-110); Anion Gap 16 mmol/L (10-20); BUN (Urea Nitrogen) 70 mg/dL (8.9-20.6); Bilirubin, Total 0.3 mg/dL (0.2-1.2); Calc. Creatinine Clearance 51 mL/min (70-130); Calcium 8.4 mg/dL (7.8-10.44); Carbon Dioxide 18 mmol/L (22-29); Chloride 107 mmol/L (98-107); Globulin 4.2 g/dL (2.4-3.5); Glucose 204 mg/dL (70-105); Potassium 4.3 mmol/L (3.5-5.1); Protein, Total 7.1 g/dL (6.0-8.3); Sodium 137 mmol/L (136-145)
[2021-01-04 06:07] LABS: Band 6 % (5-11); Lymphocytes 10 % (21-51); MDiff Complete? YES; Metamyelocyte 1 % (0-0); Monocytes 4 % (0-10); Neutrophil 79 % (42-75); Nucleated RBC 1 % (0); Platelet Morphology Comment Appears Adequate
[2021-01-04] MEDS: HumaLOG 300 UNITS/3 ML VIAL SC PRN ×2 (06:32→11:36)
[2021-01-04] MEDS: Lantus 1000 UNITS/10 ML VIAL SC SCH ×2 (07:32→20:46)
[2021-01-04] MEDS: Atorvastatin Calcium 40 MG TAB PO SCH (07:36)
[2021-01-04] MEDS: Enoxaparin Sodium 40 MG/0.4 ML SYRINGE SC SCH (07:36)
[2021-01-04] MEDS: NIFEdipine XL 60 MG TAB PO SCH (07:36)
[2021-01-04] MEDS: Aspirin 81 mg Enteric Coated Tablet PO SCH (07:36)
[2021-01-04] MEDS: Colchicine 0.6 MG TAB PO SCH (07:36)
[2021-01-04] MEDS: Carvedilol 25 MG TAB PO SCH ×2 (07:37→16:11)
[2021-01-04] MEDS: Gabapentin 100 MG CAP PO SCH ×2 (07:37→20:43)
[2021-01-04] MEDS: Doxycycline 100 MG CAP PO SCH ×2 (07:38→20:45)
[2021-01-04] MEDS: Benzonatate 100 MG CAP PO SCH ×3 (07:38→20:43)
[2021-01-04] MEDS: CLINDAMYCIN PHOSPHATE 1% TP SCH ×2 (07:40→20:45)
[2021-01-04] MEDS: methylPREDNISolone Sod Succ/PF 125 MG in Sodium Chloride 0.9% 250 ML 250 ML IVPB SCH (16:11)
[2021-01-04] MEDS: Promethazine 25 MG TAB PO PRN (20:43)
[2021-01-04] MEDS: Famotidine 20 MG TAB PO SCH (20:44)
[2021-01-05 05:41] LABS: Anion Gap 14 mmol/L (10-20); BUN (Urea Nitrogen) 78 mg/dL (8.9-20.6); Calc. Creatinine Clearance 59 mL/min (70-130); Calcium 8.4 mg/dL (7.8-10.44); Carbon Dioxide 17 mmol/L (22-29); Chloride 110 mmol/L (98-107); Glucose 220 mg/dL (70-105); Potassium 4.2 mmol/L (3.5-5.1); Sodium 137 mmol/L (136-145)
[2021-01-05] MEDS: HumaLOG 300 UNITS/3 ML VIAL SC PRN ×3 (06:16→16:29)
[2021-01-05] MEDS ORDERED: Benzonatate 100 MG CAP PO PRN (06:39)
[2021-01-05] MEDS: NIFEdipine XL 60 MG TAB PO SCH (08:10)
[2021-01-05] MEDS: Aspirin 81 mg Enteric Coated Tablet PO SCH (08:11)
[2021-01-05] MEDS: Carvedilol 25 MG TAB PO SCH ×2 (08:11→16:29)
[2021-01-05] MEDS: Gabapentin 100 MG CAP PO SCH ×2 (08:11→21:41)
[2021-01-05] MEDS: Atorvastatin Calcium 40 MG TAB PO SCH (08:12)
[2021-01-05] MEDS: Enoxaparin Sodium 40 MG/0.4 ML SYRINGE SC SCH (08:16)
[2021-01-05] MEDS: Lantus 1000 UNITS/10 ML VIAL SC SCH ×2 (08:17→21:45)
[2021-01-05] MEDS ORDERED: Lisinopril 5 MG TAB PO SCH (09:00)
[2021-01-05] MEDS: methylPREDNISolone Sod Succ/PF 125 MG in Sodium Chloride 0.9% 250 ML 250 ML IVPB SCH (13:55)
[2021-01-05] MEDS ORDERED: hydrALAZINE 20 MG/ML VIAL SLOW IVP PRN (16:04)
[2021-01-05] MEDS: Famotidine 20 MG TAB PO SCH (21:41)
[2021-01-05] MEDS: Labetalol HCl 100 MG/20 ML VIAL SLOW IVP PRN ×2 (21:41→23:24)
[2021-01-05] MEDS: Promethazine 25 MG TAB PO PRN (23:04)
[2021-01-05] MEDS: Calcium Carbonate 500 MG ChewTAB PO PRN (23:04)
[2021-01-06] MEDS ORDERED: Lisinopril 5 MG TAB PO SCH (00:30)
[2021-01-06] MEDS: Labetalol HCl 100 MG/20 ML VIAL SLOW IVP PRN ×2 (04:08→18:09)
[2021-01-06 05:41] LABS: Anion Gap 13 mmol/L (10-20); BUN (Urea Nitrogen) 66 mg/dL (8.9-20.6); Calc. Creatinine Clearance 69 mL/min (70-130); Calcium 8.7 mg/dL (7.8-10.44); Carbon Dioxide 19 mmol/L (22-29); Chloride 112 mmol/L (98-107); Glucose 218 mg/dL (70-105); Potassium 4.3 mmol/L (3.5-5.1); Sodium 140 mmol/L (136-145)
[2021-01-06 05:58] LABS: Hemoglobin 13.3 g/dL (14.0-18.0); Lymphocytes 17 % (21-51); MDiff Complete? YES; Mean Corpuscular HGB CONC 32.6 g/dL (32.0-36.0); Mean Corpuscular Hemoglobin 26.3 pg (27.0-31.0); Mean Corpuscular Volume 80.5 fL (78.0-98.0); Mean Platelet Volume 11.5 fL (7.4-10.4); Metamyelocyte 1 % (0-0); Neutrophil 82 % (42-75); Nucleated RBC 1 % (0); Platelet Count 212 thou/uL (130-400); Platelet Morphology Comment Appears Adequate; RBC Distribution Width 14.7 % (11.5-14.5); Red Blood Cell (RBC) Count 5.05 mill/uL (4.70-6.10); White Blood Cell (WBC) Count 12.5 thou/uL (4.8-10.8)
[2021-01-06] MEDS: HumaLOG 300 UNITS/3 ML VIAL SC PRN ×3 (06:24→20:21)
[2021-01-06] MEDS: Gabapentin 100 MG CAP PO SCH ×2 (09:12→20:19)
[2021-01-06] MEDS: Aspirin 81 mg Enteric Coated Tablet PO SCH (09:12)
[2021-01-06] MEDS: Lisinopril 10 MG TAB PO SCH (09:12)
[2021-01-06] MEDS: NIFEdipine XL 60 MG TAB PO SCH (09:12)
[2021-01-06] MEDS: Atorvastatin Calcium 40 MG TAB PO SCH (09:13)
[2021-01-06] MEDS: Carvedilol 25 MG TAB PO SCH ×3 (09:13→20:18)
[2021-01-06] MEDS: predniSONE 20 MG TAB PO SCH (09:13)
[2021-01-06] MEDS: Enoxaparin Sodium 40 MG/0.4 ML SYRINGE SC SCH (09:14)
[2021-01-06] MEDS: Lantus 1000 UNITS/10 ML VIAL SC SCH ×2 (09:15→20:21)
[2021-01-06 14:16] VITALS: BMI 39.1
[2021-01-06] MEDS: Famotidine 20 MG TAB PO SCH (20:18)
[2021-01-07] MEDS: Calcium Carbonate 500 MG ChewTAB PO PRN ×2 (03:35→22:04)
[2021-01-07 05:09] LABS: Anion Gap 14 mmol/L (10-20); BUN (Urea Nitrogen) 64 mg/dL (8.9-20.6); Calc. Creatinine Clearance 74 mL/min (70-130); Calcium 8.5 mg/dL (7.8-10.44); Carbon Dioxide 20 mmol/L (22-29); Chloride 108 mmol/L (98-107); Glucose 268 mg/dL (70-105); Potassium 4.5 mmol/L (3.5-5.1); Sodium 137 mmol/L (136-145)
[2021-01-07] MEDS: HumaLOG 300 UNITS/3 ML VIAL SC PRN ×3 (05:52→21:28)
[2021-01-07] MEDS: predniSONE 20 MG TAB PO SCH (08:08)
[2021-01-07] MEDS: Aspirin 81 mg Enteric Coated Tablet PO SCH (08:11)
[2021-01-07] MEDS: Atorvastatin Calcium 40 MG TAB PO SCH (08:12)
[2021-01-07] MEDS: Carvedilol 25 MG TAB PO SCH ×2 (08:13→21:36)
[2021-01-07] MEDS: Lisinopril 10 MG TAB PO SCH (08:14)
[2021-01-07] MEDS: Enoxaparin Sodium 40 MG/0.4 ML SYRINGE SC SCH (08:14)
[2021-01-07] MEDS: Gabapentin 100 MG CAP PO SCH ×2 (08:14→21:35)
[2021-01-07] MEDS: NIFEdipine XL 60 MG TAB PO SCH (08:15)
[2021-01-07] MEDS: Lantus 1000 UNITS/10 ML VIAL SC SCH ×2 (08:15→21:26)
[2021-01-07] MEDS: Famotidine 20 MG TAB PO SCH (21:36)
[2021-01-08] MEDS ORDERED: predniSONE 20 MG TAB PO SCH (08:00)
[2021-01-08 08:26] VITALS: BP 183/91; TEMP 97.6
[2021-01-08] MEDS: NIFEdipine XL 60 MG TAB PO SCH (08:33)
[2021-01-08] MEDS: Atorvastatin Calcium 40 MG TAB PO SCH (08:33)
[2021-01-08] MEDS: Enoxaparin Sodium 40 MG/0.4 ML SYRINGE SC SCH (08:34)
[2021-01-08] MEDS: Aspirin 81 mg Enteric Coated Tablet PO SCH (08:34)
[2021-01-08] MEDS: Carvedilol 25 MG TAB PO SCH (08:34)
[2021-01-08] MEDS: Lisinopril 10 MG TAB PO SCH (08:34)
[2021-01-08] MEDS: Gabapentin 100 MG CAP PO SCH (08:34)
[2021-01-08] MEDS: Lantus 1000 UNITS/10 ML VIAL SC SCH (09:23)
== END 2021-01-08 11:43 | disposition home or self-care (01) | DRG 871 ==
LOC: ERS 09:51 → INTOOBSV 12:50 → OBSVTOIN 12:50 → ERHOLD 12:50 → 2SW 15:44
PROVIDERS: ADMIT Family Medicine; ATTEND Family Medicine
PROC: 0X950ZX Drainage of Left Axilla, Open Approach, Diagnostic (ICD-10-PCS; principal; 2020-12-28)
DX: A41.9 Sepsis, unspecified organism (principal); U07.1 COVID-19; J12.82 Pneumonia due to coronavirus disease 2019; J96.01 Acute respiratory failure with hypoxia; I50.22 Chronic systolic (congestive) heart failure; I13.0 Hypertensive heart and chronic kidney disease with heart failure and stage 1 through stage 4 chronic kidney disease, or unspecified chronic kidney disease; J98.11 Atelectasis; L02.412 Cutaneous abscess of left axilla; L02.214 Cutaneous abscess of groin; N17.9 Acute kidney failure, unspecified; L03.112 Cellulitis of left axilla; L03.314 Cellulitis of groin; Z68.41 Body mass index [BMI] 40.0-44.9, adult; Z66 Do not resuscitate; E11.22 Type 2 diabetes mellitus with diabetic chronic kidney disease; E11.65 Type 2 diabetes mellitus with hyperglycemia; E11.40 Type 2 diabetes mellitus with diabetic neuropathy, unspecified; E78.5 Hyperlipidemia, unspecified; K21.9 Gastro-esophageal reflux disease without esophagitis; G47.33 Obstructive sleep apnea (adult) (pediatric); M19.90 Unspecified osteoarthritis, unspecified site; E66.01 Morbid (severe) obesity due to excess calories; L73.2 Hidradenitis suppurativa; B95.61 Methicillin susceptible Staphylococcus aureus infection as the cause of diseases classified elsewhere; Z79.82 Long term (current) use of aspirin; Z79.4 Long term (current) use of insulin; Z79.899 Other long term (current) drug therapy; Z83.3 Family history of diabetes mellitus; Z83.42 Family history of familial hypercholesterolemia; Z82.49 Family history of ischemic heart disease and other diseases of the circulatory system; N18.32 Chronic kidney disease, stage 3b
CPT/HCPCS: 0240U; 10060; 36415; 36416; 36600; 71045; 80048; 80053; 80202; 81003; 81015; 82553; 82805; 83605; 83880; 84145; 84484; 85025; 86769; 86780; 87040; 87070; 87077; 87086; 87186; 87205; 87389; 93005; 96365; 96367; 96372; 96375; G0378; J0360; J0692; J0696; J1650; J1815; J1940; J2405; J2930; J3370; J3490; J7050; J7512; Q0162; Q0169

== ENCOUNTER 2021-08-30 00:08 | Inpatient (IN) | payer OTHER ==
[2021-08-30 01:39] LABS: #Basophils 0.1 thou/uL (0.0-0.2); #Eosinphils 0.2 thou/uL (0.0-0.7); #Lymphocytes 2.2 thou/uL (1.20-3.40); #Monocytes 0.5 thou/uL (0.11-0.59); %Basophils 0.9 % (0.0-1.0); %Lymphocytes 24.5 % (21.0-51.0); %Monocytes 5.6 % (0.0-10.0); Hemoglobin 12.5 g/dL (14.0-18.0); Mean Corpuscular HGB CONC 32.9 g/dL (32.0-36.0); Mean Corpuscular Hemoglobin 27.2 pg (27.0-31.0); Mean Corpuscular Volume 82.7 fL (78.0-98.0); Mean Platelet Volume 11.7 fL (7.4-10.4); Platelet Count 132 thou/uL (130-400); RBC Distribution Width 15.1 % (11.5-14.5); Red Blood Cell (RBC) Count 4.59 mill/uL (4.70-6.10); White Blood Cell (WBC) Count 8.9 thou/uL (4.8-10.8)
[2021-08-30] MEDS ORDERED: Furosemide 40 MG/4 ML VIAL ONE ×2 (01:42→01:48)
[2021-08-30] MEDS ORDERED: Aspirin 325 MG TAB ONE (01:42)
[2021-08-30] MEDS ORDERED: Nitroglycerin 50 MG/250 ML BOT 0 ML ONE (01:42)
[2021-08-30] MEDS ORDERED: Nitroglycerin 2% Ointment 1 INCH/1 GM Packet ONE ×2 (01:43→01:48)
[2021-08-30] MEDS ORDERED: Aspirin 81 mg Enteric Coated Tablet ONE (01:48)
[2021-08-30 02:12] LABS: ALT (SGPT) 11 U/L (8-55); AST (SGOT) 12 U/L (5-34); Albumin 2.7 g/dL (3.5-5.0); Alkaline Phosphatase 206 U/L (40-110); Anion Gap 14 mmol/L (10-20); BUN (Urea Nitrogen) 28 mg/dL (8.9-20.6); Bilirubin, Total 0.4 mg/dL (0.2-1.2); Calc. Creatinine Clearance 0 mL/min (70-130); Carbon Dioxide 24 mmol/L (22-29); Chloride 102 mmol/L (98-107); Globulin 3.6 g/dL (2.4-3.5); Potassium 3.6 mmol/L (3.5-5.1); Protein, Total 6.3 g/dL (6.0-8.3); Sodium 136 mmol/L (136-145)
[2021-08-30 02:22] LABS: Glucose 564 mg/dL (70-105)
[2021-08-30 02:33] LABS: CKMB 3.6 ng/mL (0-6.6)
[2021-08-30] MEDS ORDERED: Lantus 1000 UNITS/10 ML VIAL SC SCH ×2 (03:45→21:00)
[2021-08-30] MEDS ORDERED: hydrALAZINE 20 MG/ML VIAL SLOW IVP SCH ×2 (03:45→07:30)
[2021-08-30] MEDS ORDERED: HumaLOG 300 UNITS/3 ML VIAL SC SCH (03:45)
[2021-08-30] MEDS ORDERED: Dextrose 5% in Water 1,000 ML IV PRN (03:48)
[2021-08-30] MEDS ORDERED: Dextrose 50% Abboject 50 ML SYRINGE SLOW IVP PRN (03:48)
[2021-08-30] MEDS ORDERED: hydrALAZINE 20 MG/ML VIAL ONE (03:51)
[2021-08-30] MEDS ORDERED: Ondansetron PF 4 MG/2 ML Vial IVP PRN (03:54)
[2021-08-30] MEDS ORDERED: Ondansetron ODT 4 MG TAB SL PRN (03:54)
[2021-08-30 04:57] LABS: Hemoglobin A1c Greater than 14.0 % (4.0-6.0)
[2021-08-30 05:14] LABS: Troponin I 0.076 ng/mL (< 0.028)
[2021-08-30] MEDS: NIFEdipine XL 60 MG TAB PO SCH (05:42)
[2021-08-30] MEDS ORDERED: Morphine 4 MG/ML VIAL SLOW IVP SCH (05:45)
[2021-08-30 07:12] LABS: Amphetamine Not Detected (NotDetected); Barbiturates Screen Not Detected (NotDetected); Benzodiazepine Screen Not Detected (NotDetected); Cocaine Metabolite Screen Not Detected (NotDetected); Methadone Not Detected (NotDetected); Methamphetamine Not Detected (NotDetected); Opiate Screen Not Detected (NotDetected); Oxycodone Screen Not Detected (NotDetected); Phencyclidine (PCP) Not Detected (NotDetected); THC/Cannabinoid Screen Detected (NotDetected); Tricyclic Screen Not Detected (NotDetected)
[2021-08-30 08:07] LABS: Troponin I 0.082 ng/mL (< 0.028)
[2021-08-30] MEDS ORDERED: Labetalol HCl 100 MG/20 ML VIAL SLOW IVP PRN (08:18)
[2021-08-30] MEDS ORDERED: Lisinopril 10 MG TAB PO SCH ×2 (09:00→10:45)
[2021-08-30] MEDS ORDERED: Enoxaparin Sodium 30 MG/0.3 ML SYRINGE SC SCH (09:00)
[2021-08-30] MEDS ORDERED: Carvedilol 25 MG TAB PO SCH ×2 (09:00→10:45)
[2021-08-30] MEDS: Heparin 5,000 UNITS/ML VIAL SC SCH ×3 (10:25→21:53)
[2021-08-30] MEDS: HumaLOG 300 UNITS/3 ML VIAL SC PRN ×3 (10:54→21:52)
[2021-08-30] MEDS: Gabapentin 300 MG CAP PO SCH ×2 (10:55→21:51)
[2021-08-30] MEDS: Ezetimibe 10 MG TAB PO SCH (10:56)
[2021-08-30] MEDS: Atorvastatin Calcium 40 MG TAB PO SCH (10:56)
[2021-08-30 11:56] LABS: SARS-CoV-2 PCR by NAA Not Detected (NotDetected)
[2021-08-30] MEDS: Carvedilol 25 MG TAB PO SCH (16:17)
[2021-08-30] MEDS ORDERED: Furosemide 100 MG/10 ML VIAL SLOW IVP SCH (17:00)
[2021-08-31] MEDS: HumaLOG 300 UNITS/3 ML VIAL SC PRN ×2 (05:48→21:00)
[2021-08-31] MEDS ORDERED: Furosemide 100 MG/10 ML VIAL SLOW IVP SCH ×2 (06:00→09:45)
[2021-08-31] MEDS ORDERED: Lisinopril 10 MG TAB PO SCH (09:00)
[2021-08-31] MEDS ORDERED: Lantus 1000 UNITS/10 ML VIAL SC SCH ×2 (09:00→21:00)
[2021-08-31] MEDS: Carvedilol 25 MG TAB PO SCH ×2 (09:23→18:16)
[2021-08-31] MEDS: Atorvastatin Calcium 40 MG TAB PO SCH (09:24)
[2021-08-31] MEDS: Ezetimibe 10 MG TAB PO SCH (09:24)
[2021-08-31] MEDS: NIFEdipine XL 60 MG TAB PO SCH (09:24)
[2021-08-31] MEDS: Gabapentin 300 MG CAP PO SCH ×2 (09:25→20:54)
[2021-08-31] MEDS: Aspirin 81 mg Enteric Coated Tablet PO SCH (09:26)
[2021-08-31] MEDS: Heparin 5,000 UNITS/ML VIAL SC SCH ×3 (09:29→20:55)
[2021-08-31] MEDS ORDERED: Carvedilol 25 MG TAB PO SCH (09:45)
[2021-08-31] MEDS: Albumin 25% 25 GM/100 ML BOT IVPB SCH ×3 (11:35→23:46)
[2021-08-31] MEDS: HumaLOG 300 UNITS/3 ML VIAL SC SCH ×2 (11:36→18:18)
[2021-08-31] MEDS: Furosemide 100 MG/10 ML VIAL SLOW IVP SCH (15:02)
[2021-09-01] MEDS: Albumin 25% 25 GM/100 ML BOT IVPB SCH ×2 (00:14→06:00)
[2021-09-01 00:42] LABS: #Basophils 0.1 thou/uL (0.0-0.2); #Eosinphils 0.2 thou/uL (0.0-0.7); #Monocytes 0.5 thou/uL (0.11-0.59); #Neutrophils 4.6 thou/uL (1.40-6.50); %Basophils 1.1 % (0.0-1.0); %Lymphocytes 26.9 % (21.0-51.0); %Monocytes 7.2 % (0.0-10.0); %Neutrophils 61.9 % (42.0-75.0); Hemoglobin 10.4 g/dL (14.0-18.0); Mean Corpuscular HGB CONC 32.1 g/dL (32.0-36.0); Mean Corpuscular Hemoglobin 26.7 pg (27.0-31.0); Mean Corpuscular Volume 83.2 fL (78.0-98.0); Mean Platelet Volume 11.8 fL (7.4-10.4); Platelet Count 139 thou/uL (130-400); RBC Distribution Width 14.9 % (11.5-14.5); Red Blood Cell (RBC) Count 3.91 mill/uL (4.70-6.10); White Blood Cell (WBC) Count 7.5 thou/uL (4.8-10.8)
[2021-09-01 01:14] LABS: Anion Gap 12 mmol/L (10-20); BUN (Urea Nitrogen) 38 mg/dL (8.9-20.6); Calc. Creatinine Clearance 49 mL/min (70-130); Calcium 8.2 mg/dL (7.8-10.44); Carbon Dioxide 25 mmol/L (22-29); Chloride 105 mmol/L (98-107); Glucose 307 mg/dL (70-105); Potassium 3.5 mmol/L (3.5-5.1); Sodium 138 mmol/L (136-145)
[2021-09-01 02:34] LABS: Bacteria/HPF None Seen HPF (None Seen); Bilirubin Negative (Negative); Blood, Urine 1+ (Negative); Clarity Clear (Clear); Glucose, Urine (Dipstick) >=1000 mg/dL (Negative); Ketone, Urine Negative (Negative); Leukocyte Negative Leu/uL (Negative); Nitrite Negative (Negative); Protein, Urine (Dipstick) 300 mg/dL (Neg-Trace); Specific Gravity, Urine 1.014 (1.002-1.036); Squamous Epithelial 0-3 HPF (0-3); Urobilinogen Normal mg/dL (Less than 2); WBC/HPF 0-3 HPF (0-3)
[2021-09-01] MEDS: HumaLOG 300 UNITS/3 ML VIAL SC PRN ×3 (06:16→21:50)
[2021-09-01] MEDS: Furosemide 100 MG/10 ML VIAL SLOW IVP SCH (06:17)
[2021-09-01] MEDS: HumaLOG 300 UNITS/3 ML VIAL SC SCH ×3 (08:57→17:04)
[2021-09-01] MEDS: Heparin 5,000 UNITS/ML VIAL SC SCH ×3 (08:57→21:50)
[2021-09-01] MEDS: NIFEdipine XL 60 MG TAB PO SCH (08:58)
[2021-09-01] MEDS: Carvedilol 25 MG TAB PO SCH ×2 (08:58→17:05)
[2021-09-01] MEDS: Atorvastatin Calcium 40 MG TAB PO SCH (08:59)
[2021-09-01] MEDS: Gabapentin 300 MG CAP PO SCH ×2 (08:59→21:52)
[2021-09-01] MEDS ORDERED: Lantus 1000 UNITS/10 ML VIAL SC SCH ×3 (09:00→10:45)
[2021-09-01] MEDS: Aspirin 81 mg Enteric Coated Tablet PO SCH (09:00)
[2021-09-01] MEDS: Ezetimibe 10 MG TAB PO SCH (09:00)
[2021-09-01 10:26] LABS: #Eosinphils 0.2 thou/uL (0.0-0.7); #Monocytes 0.4 thou/uL (0.11-0.59); #Neutrophils 4.7 thou/uL (1.40-6.50); %Basophils 0.4 % (0.0-1.0); %Eosinophils 3.1 % (0.0-10.0); %Lymphocytes 26.6 % (21.0-51.0); %Monocytes 5.8 % (0.0-10.0); %Neutrophils 64.2 % (42.0-75.0); Hemoglobin 9.8 g/dL (14.0-18.0); Mean Corpuscular HGB CONC 33.4 g/dL (32.0-36.0); Mean Corpuscular Hemoglobin 27.6 pg (27.0-31.0); Mean Corpuscular Volume 82.8 fL (78.0-98.0); Mean Platelet Volume 11.6 fL (7.4-10.4); Platelet Count 133 thou/uL (130-400); RBC Distribution Width 14.9 % (11.5-14.5); Red Blood Cell (RBC) Count 3.55 mill/uL (4.70-6.10); White Blood Cell (WBC) Count 7.4 thou/uL (4.8-10.8)
[2021-09-01 10:48] LABS: Anion Gap 15 mmol/L (10-20); BUN (Urea Nitrogen) 38 mg/dL (8.9-20.6); Calc. Creatinine Clearance 49 mL/min (70-130); Calcium 8.5 mg/dL (7.8-10.44); Carbon Dioxide 20 mmol/L (22-29); Chloride 107 mmol/L (98-107); Glucose 204 mg/dL (70-105); Potassium 3.6 mmol/L (3.5-5.1); Sodium 138 mmol/L (136-145)
[2021-09-01] MEDS ORDERED: Albumin 25% 25 GM/100 ML BOT IVPB SCH (12:00)
[2021-09-01] MEDS: Lantus 1000 UNITS/10 ML VIAL SC SCH (21:51)
[2021-09-02] MEDS: Ezetimibe 10 MG TAB PO SCH (08:12)
[2021-09-02] MEDS: Carvedilol 25 MG TAB PO SCH ×2 (08:13→16:11)
[2021-09-02] MEDS: Aspirin 81 mg Enteric Coated Tablet PO SCH (08:13)
[2021-09-02] MEDS: Atorvastatin Calcium 40 MG TAB PO SCH (08:13)
[2021-09-02] MEDS: Gabapentin 300 MG CAP PO SCH ×2 (08:13→21:32)
[2021-09-02] MEDS: HumaLOG 300 UNITS/3 ML VIAL SC SCH ×3 (08:14→18:36)
[2021-09-02] MEDS: NIFEdipine XL 60 MG TAB PO SCH (08:14)
[2021-09-02] MEDS: Lantus 1000 UNITS/10 ML VIAL SC SCH ×2 (08:15→21:33)
[2021-09-02] MEDS: Heparin 5,000 UNITS/ML VIAL SC SCH ×3 (08:16→21:33)
[2021-09-02] MEDS ORDERED: FLU VACC QS2021-22(6MOS UP)/PF 60 MCG/0.5 ML SYRINGE IM ONE (09:00)
[2021-09-02] MEDS: Albumin 25% 25 GM/100 ML BOT IVPB SCH ×2 (13:10→18:35)
[2021-09-03] MEDS: Albumin 25% 25 GM/100 ML BOT IVPB SCH ×5 (00:15→23:17)
[2021-09-03 05:46] LABS: #Eosinphils 0.2 thou/uL (0.0-0.7); #Lymphocytes 1.9 thou/uL (1.20-3.40); #Monocytes 0.6 thou/uL (0.11-0.59); #Neutrophils 4.7 thou/uL (1.40-6.50); %Basophils 0.6 % (0.0-1.0); %Eosinophils 2.9 % (0.0-10.0); %Lymphocytes 25.7 % (21.0-51.0); %Neutrophils 62.8 % (42.0-75.0); Hemoglobin 9.5 g/dL (14.0-18.0); Mean Corpuscular HGB CONC 32.4 g/dL (32.0-36.0); Mean Corpuscular Hemoglobin 27.3 pg (27.0-31.0); Mean Corpuscular Volume 84.2 fL (78.0-98.0); Mean Platelet Volume 11.5 fL (7.4-10.4); Platelet Count 129 thou/uL (130-400); Red Blood Cell (RBC) Count 3.46 mill/uL (4.70-6.10); White Blood Cell (WBC) Count 7.5 thou/uL (4.8-10.8)
[2021-09-03 06:07] LABS: Anion Gap 15 mmol/L (10-20); BUN (Urea Nitrogen) 46 mg/dL (8.9-20.6); Calc. Creatinine Clearance 40 mL/min (70-130); Calcium 8.5 mg/dL (7.8-10.44); Carbon Dioxide 22 mmol/L (22-29); Chloride 109 mmol/L (98-107); Glucose 109 mg/dL (70-105); Potassium 3.7 mmol/L (3.5-5.1); Sodium 142 mmol/L (136-145)
[2021-09-03] MEDS: Heparin 5,000 UNITS/ML VIAL SC SCH ×3 (08:47→21:26)
[2021-09-03] MEDS: Atorvastatin Calcium 40 MG TAB PO SCH (08:49)
[2021-09-03] MEDS: Ezetimibe 10 MG TAB PO SCH (08:49)
[2021-09-03] MEDS: Gabapentin 300 MG CAP PO SCH (08:49)
[2021-09-03] MEDS: Carvedilol 25 MG TAB PO SCH ×2 (08:49→16:05)
[2021-09-03] MEDS: Aspirin 81 mg Enteric Coated Tablet PO SCH (08:49)
[2021-09-03] MEDS: HumaLOG 300 UNITS/3 ML VIAL SC SCH ×3 (08:50→17:16)
[2021-09-03] MEDS: Lantus 1000 UNITS/10 ML VIAL SC SCH ×2 (08:50→21:26)
[2021-09-03] MEDS: NIFEdipine XL 60 MG TAB PO SCH (08:54)
[2021-09-03] MEDS ORDERED: Gabapentin 300 MG CAP PO SCH (10:45)
[2021-09-03] MEDS: Acetaminophen 325 MG TAB PO PRN (13:56)
[2021-09-03] MEDS ORDERED: Simethicone Chewable 80 MG TAB PO PRN (17:07)
[2021-09-04] MEDS ORDERED: Benzonatate 100 MG CAP PO PRN (05:19)
[2021-09-04] MEDS ORDERED: Albuterol Sulfate 2.5 mg/3 ml Neb NEB SCH (05:45)
[2021-09-04] MEDS: Albumin 25% 25 GM/100 ML BOT IVPB SCH ×3 (06:29→17:13)
[2021-09-04] MEDS ORDERED: Albuterol Sulfate 2.5 mg/3 ml Neb NEB PRN (07:00)
[2021-09-04] MEDS: Aspirin 81 mg Enteric Coated Tablet PO SCH (08:33)
[2021-09-04] MEDS: Ezetimibe 10 MG TAB PO SCH (08:33)
[2021-09-04] MEDS: Atorvastatin Calcium 40 MG TAB PO SCH (08:33)
[2021-09-04] MEDS: Gabapentin 300 MG CAP PO SCH (08:34)
[2021-09-04] MEDS: Carvedilol 25 MG TAB PO SCH ×2 (08:34→16:19)
[2021-09-04] MEDS: Lantus 1000 UNITS/10 ML VIAL SC SCH ×2 (08:35→22:57)
[2021-09-04] MEDS: NIFEdipine XL 60 MG TAB PO SCH (08:35)
[2021-09-04] MEDS: HumaLOG 300 UNITS/3 ML VIAL SC SCH ×4 (08:36→16:30)
[2021-09-04] MEDS ORDERED: Furosemide 40 MG/4 ML VIAL SLOW IVP SCH (09:15)
[2021-09-04] MEDS: Heparin 5,000 UNITS/ML VIAL SC SCH ×3 (12:10→19:57)
[2021-09-04 15:55] LABS: #Eosinphils 0.2 thou/uL (0.0-0.7); #Lymphocytes 1.2 thou/uL (1.20-3.40); #Monocytes 0.8 thou/uL (0.11-0.59); #Neutrophils 7.6 thou/uL (1.40-6.50); %Basophils 0.4 % (0.0-1.0); %Lymphocytes 11.7 % (21.0-51.0); Hemoglobin 9.3 g/dL (14.0-18.0); Mean Corpuscular HGB CONC 32.3 g/dL (32.0-36.0); Mean Corpuscular Volume 83.7 fL (78.0-98.0); Mean Platelet Volume 11.2 fL (7.4-10.4); Platelet Count 133 thou/uL (130-400); Red Blood Cell (RBC) Count 3.44 mill/uL (4.70-6.10); White Blood Cell (WBC) Count 9.8 thou/uL (4.8-10.8)
[2021-09-04 16:12] LABS: Phosphorus 6.6 mg/dL (2.3-4.7)
[2021-09-04 16:14] LABS: Anion Gap 16 mmol/L (10-20); BUN (Urea Nitrogen) 57 mg/dL (8.9-20.6); Calc. Creatinine Clearance 37 mL/min (70-130); Calcium 8.7 mg/dL (7.8-10.44); Carbon Dioxide 22 mmol/L (22-29); Chloride 105 mmol/L (98-107); Glucose 92 mg/dL (70-105); Potassium 3.9 mmol/L (3.5-5.1); Sodium 139 mmol/L (136-145)
[2021-09-04 16:37] LABS: CKMB 2.8 ng/mL (0-6.6)
[2021-09-04] MEDS: Furosemide 40 MG/4 ML VIAL SLOW IVP SCH (19:56)
[2021-09-04] MEDS ORDERED: Lantus 1000 UNITS/10 ML VIAL SC SCH (22:00)
[2021-09-05] MEDS: Albumin 25% 25 GM/100 ML BOT IVPB SCH ×3 (00:57→16:57)
[2021-09-05 06:24] LABS: #Basophils 0.1 thou/uL (0.0-0.2); #Eosinphils 0.2 thou/uL (0.0-0.7); #Lymphocytes 1.4 thou/uL (1.20-3.40); #Monocytes 0.8 thou/uL (0.11-0.59); #Neutrophils 5.4 thou/uL (1.40-6.50); %Basophils 0.8 % (0.0-1.0); %Eosinophils 2.1 % (0.0-10.0); %Lymphocytes 18.4 % (21.0-51.0); %Neutrophils 68.8 % (42.0-75.0); Hemoglobin 8.7 g/dL (14.0-18.0); Mean Corpuscular HGB CONC 32.9 g/dL (32.0-36.0); Mean Corpuscular Hemoglobin 27.5 pg (27.0-31.0); Mean Corpuscular Volume 83.7 fL (78.0-98.0); Mean Platelet Volume 11.6 fL (7.4-10.4); Platelet Count 127 thou/uL (130-400); Red Blood Cell (RBC) Count 3.17 mill/uL (4.70-6.10); White Blood Cell (WBC) Count 7.8 thou/uL (4.8-10.8)
[2021-09-05 06:42] LABS: Anion Gap 15 mmol/L (10-20); BUN (Urea Nitrogen) 62 mg/dL (8.9-20.6); Calc. Creatinine Clearance 35 mL/min (70-130); Calcium 8.8 mg/dL (7.8-10.44); Carbon Dioxide 23 mmol/L (22-29); Chloride 107 mmol/L (98-107); Glucose 90 mg/dL (70-105); Potassium 3.9 mmol/L (3.5-5.1); Sodium 141 mmol/L (136-145)
[2021-09-05] MEDS: HumaLOG 300 UNITS/3 ML VIAL SC SCH ×3 (08:00→18:09)
[2021-09-05] MEDS: NIFEdipine XL 60 MG TAB PO SCH (09:00)
[2021-09-05] MEDS: Calcitriol 0.25 MCG CAP PO SCH (09:00)
[2021-09-05] MEDS: Lantus 1000 UNITS/10 ML VIAL SC SCH ×2 (09:00→20:33)
[2021-09-05] MEDS ORDERED: Heparin 10,000 UNITS/ 10 ML VIAL ONE ×2 (09:00→13:17)
[2021-09-05] MEDS ORDERED: ceFAZolin 2 GM/Dextrose 50 ML 2 GM in Premix Bag 1 BAG IVPB SCH (10:15)
[2021-09-05] MEDS: EPOETIN ALFA-EPBX (ESRD) 4,000 UNIT/ML VIAL SC SCH (12:00)
[2021-09-05] MEDS: Carvedilol 25 MG TAB PO SCH ×2 (12:29→16:43)
[2021-09-05] MEDS ORDERED: Xylocaine 1% w/ Epi 1:100K 10 ML VIAL ONE (13:17)
[2021-09-05] MEDS ORDERED: Bupivacaine PF 0.5% 30 ML VIAL ONE (13:17)
[2021-09-05] MEDS ORDERED: Sodium Chloride 0.9% 30 ML ONE (13:17)
[2021-09-05] MEDS ORDERED: Bupivacaine 0.25% HCL 30 ML VIAL ONE (13:17)
[2021-09-05] MEDS ORDERED: Fentanyl 100 MCG/2 ML VIAL ONE (13:18)
[2021-09-05] MEDS ORDERED: PROPOFOL 20 ML ONE (13:18)
[2021-09-05] MEDS ORDERED: Sodium Chloride 0.9% 10 ML ONE (14:12)
[2021-09-05] MEDS ORDERED: Ondansetron HCl/PF 4 MG/2 ML Vial IVP PRN (14:14)
[2021-09-05] MEDS ORDERED: Promethazine HCl 25 MG/ML VIAL IVPB PRN (14:14)
[2021-09-05] MEDS ORDERED: Promethazine HCl 25 MG/ML VIAL IM PRN (14:14)
[2021-09-05] MEDS: Heparin 5,000 UNITS/ML VIAL SC SCH ×3 (15:00→20:35)
[2021-09-05] MEDS: Gabapentin 300 MG CAP PO SCH (16:42)
[2021-09-05] MEDS: Atorvastatin Calcium 40 MG TAB PO SCH (16:43)
[2021-09-05] MEDS: Aspirin 81 mg Enteric Coated Tablet PO SCH (16:44)
[2021-09-05] MEDS: Ferrous Sulfate 325 MG TAB PO SCH (16:44)
[2021-09-05] MEDS: Ezetimibe 10 MG TAB PO SCH (16:44)
[2021-09-05] MEDS: Sevelamer Carbonate 800 MG TAB PO SCH ×2 (16:46→18:12)
[2021-09-05] MEDS: Furosemide 40 MG/4 ML VIAL SLOW IVP SCH ×2 (18:09→20:35)
[2021-09-05 18:12] LABS: HBSAB Concentration Less than 8.00 mIU/mL; Hep B Surf AB Non-Reactive (NonReactive); Hep B Surf Ag Non-Reactive S/CO (NonReactive)
[2021-09-05 23:11] LABS: SARS-CoV-2 PCR by NAA Not Detected (NotDetected)
[2021-09-06 06:02] LABS: #Eosinphils 0.1 thou/uL (0.0-0.7); #Lymphocytes 1.2 thou/uL (1.20-3.40); #Monocytes 0.7 thou/uL (0.11-0.59); #Neutrophils 4.7 thou/uL (1.40-6.50); %Basophils 0.3 % (0.0-1.0); %Eosinophils 2.1 % (0.0-10.0); %Lymphocytes 17.3 % (21.0-51.0); %Monocytes 10.4 % (0.0-10.0); %Neutrophils 69.8 % (42.0-75.0); Hemoglobin 8.7 g/dL (14.0-18.0); Mean Corpuscular HGB CONC 32.9 g/dL (32.0-36.0); Mean Corpuscular Hemoglobin 27.4 pg (27.0-31.0); Mean Corpuscular Volume 83.3 fL (78.0-98.0); Mean Platelet Volume 11.7 fL (7.4-10.4); Platelet Count 129 thou/uL (130-400); RBC Distribution Width 15.1 % (11.5-14.5); Red Blood Cell (RBC) Count 3.17 mill/uL (4.70-6.10); White Blood Cell (WBC) Count 6.7 thou/uL (4.8-10.8)
[2021-09-06 06:14] LABS: Anion Gap 15 mmol/L (10-20); BUN (Urea Nitrogen) 65 mg/dL (8.9-20.6); Calc. Creatinine Clearance 34 mL/min (70-130); Calcium 8.6 mg/dL (7.8-10.44); Carbon Dioxide 26 mmol/L (22-29); Chloride 104 mmol/L (98-107); Glucose 153 mg/dL (70-105); Potassium 3.9 mmol/L (3.5-5.1); Sodium 141 mmol/L (136-145)
[2021-09-06] MEDS ORDERED: ceFAZolin 2 GM/Dextrose 50 ML 2 GM in Premix Bag 1 BAG IVPB SCH (09:00)
[2021-09-06] MEDS: Carvedilol 25 MG TAB PO SCH ×2 (09:02→17:07)
[2021-09-06] MEDS: Sevelamer Carbonate 800 MG TAB PO SCH ×3 (09:03→17:07)
[2021-09-06] MEDS: Ferrous Sulfate 325 MG TAB PO SCH ×2 (09:03→17:08)
[2021-09-06] MEDS: Atorvastatin Calcium 40 MG TAB PO SCH (09:04)
[2021-09-06] MEDS ORDERED: Heparin 10,000 UNITS/ 10 ML VIAL ONE (09:08)
[2021-09-06] MEDS: NIFEdipine XL 60 MG TAB PO SCH (09:09)
[2021-09-06] MEDS: Gabapentin 300 MG CAP PO SCH (09:10)
[2021-09-06] MEDS: Aspirin 81 mg Enteric Coated Tablet PO SCH (09:11)
[2021-09-06] MEDS: Calcitriol 0.25 MCG CAP PO SCH (09:11)
[2021-09-06] MEDS: Ezetimibe 10 MG TAB PO SCH (09:11)
[2021-09-06] MEDS: Heparin 5,000 UNITS/ML VIAL SC SCH ×3 (09:12→20:43)
[2021-09-06] MEDS ORDERED: Tuberculin PPD 0.1 ML VIAL I-DERMAL SCH ×2 (09:15)
[2021-09-06] MEDS: HumaLOG 300 UNITS/3 ML VIAL SC SCH ×3 (09:18→17:08)
[2021-09-06] MEDS: Lantus 1000 UNITS/10 ML VIAL SC SCH ×2 (09:19→20:42)
[2021-09-06] MEDS: Furosemide 40 MG/4 ML VIAL SLOW IVP SCH (09:20)
[2021-09-06] MEDS ORDERED: Loperamide HCl 2 MG CAP PO SCH (11:00)
[2021-09-06 11:26] LABS: HBSAB Concentration Less than 8.00 mIU/mL; HBSAg Index 0.23 S/CO (0-0.99); Hep B Core Total Ab Non-Reactive (NonReactive); Hep B Core Total Index 0.03 S/CO (0-0.79); Hep B Surf AB Non-Reactive (NonReactive); Hep B Surf Ag Non-Reactive S/CO (NonReactive); Hep C IgG Ab Non-Reactive (NonReactive); Hep C Index 0.09 S/CO (0-0.79)
[2021-09-07] MEDS: Acetaminophen 325 MG TAB PO PRN (03:43)
[2021-09-07 05:53] LABS: #Basophils 0.1 thou/uL (0.0-0.2); #Eosinphils 0.2 thou/uL (0.0-0.7); #Lymphocytes 1.2 thou/uL (1.20-3.40); #Monocytes 0.8 thou/uL (0.11-0.59); #Neutrophils 4.2 thou/uL (1.40-6.50); %Basophils 0.8 % (0.0-1.0); %Monocytes 12.1 % (0.0-10.0); %Neutrophils 65.1 % (42.0-75.0); Hemoglobin 8.4 g/dL (14.0-18.0); Mean Corpuscular Hemoglobin 27.4 pg (27.0-31.0); Mean Corpuscular Volume 83.1 fL (78.0-98.0); Mean Platelet Volume 11.3 fL (7.4-10.4); Platelet Count 127 thou/uL (130-400); RBC Distribution Width 14.9 % (11.5-14.5); Red Blood Cell (RBC) Count 3.06 mill/uL (4.70-6.10); White Blood Cell (WBC) Count 6.5 thou/uL (4.8-10.8)
[2021-09-07 06:20] LABS: Anion Gap 15 mmol/L (10-20); BUN (Urea Nitrogen) 57 mg/dL (8.9-20.6); Calc. Creatinine Clearance 38 mL/min (70-130); Calcium 8.6 mg/dL (7.8-10.44); Carbon Dioxide 25 mmol/L (22-29); Chloride 105 mmol/L (98-107); Glucose 147 mg/dL (70-105); Potassium 3.8 mmol/L (3.5-5.1); Sodium 141 mmol/L (136-145)
[2021-09-07] MEDS ORDERED: Heparin 10,000 UNITS/ 10 ML VIAL ONE (09:00)
[2021-09-07] MEDS: Aspirin 81 mg Enteric Coated Tablet PO SCH (09:18)
[2021-09-07] MEDS: NIFEdipine XL 60 MG TAB PO SCH ×2 (09:18→13:49)
[2021-09-07] MEDS: Sevelamer Carbonate 800 MG TAB PO SCH ×3 (09:19→19:49)
[2021-09-07] MEDS: Atorvastatin Calcium 40 MG TAB PO SCH (09:19)
[2021-09-07] MEDS: Calcitriol 0.25 MCG CAP PO SCH (09:19)
[2021-09-07] MEDS: Gabapentin 300 MG CAP PO SCH (09:20)
[2021-09-07] MEDS: Ezetimibe 10 MG TAB PO SCH (09:20)
[2021-09-07] MEDS: Carvedilol 25 MG TAB PO SCH ×2 (09:20→19:49)
[2021-09-07] MEDS: Ferrous Sulfate 325 MG TAB PO SCH ×2 (09:24→19:49)
[2021-09-07] MEDS: HumaLOG 300 UNITS/3 ML VIAL SC SCH ×3 (11:11→19:49)
[2021-09-07] MEDS: Heparin 5,000 UNITS/ML VIAL SC SCH ×2 (11:12→12:37)
[2021-09-07] MEDS: Lantus 1000 UNITS/10 ML VIAL SC SCH ×2 (11:12→21:17)
[2021-09-07] MEDS ORDERED: NIFEdipine XL 60 MG TAB PO SCH (13:30)
[2021-09-08] MEDS: Acetaminophen 325 MG TAB PO PRN (05:58)
[2021-09-08 06:23] LABS: #Eosinphils 0.2 thou/uL (0.0-0.7); #Lymphocytes 1.6 thou/uL (1.20-3.40); #Monocytes 0.8 thou/uL (0.11-0.59); #Neutrophils 4.1 thou/uL (1.40-6.50); %Basophils 0.7 % (0.0-1.0); %Eosinophils 2.9 % (0.0-10.0); %Lymphocytes 23.6 % (21.0-51.0); %Monocytes 11.9 % (0.0-10.0); Hemoglobin 8.9 g/dL (14.0-18.0); Mean Corpuscular HGB CONC 33.1 g/dL (32.0-36.0); Mean Corpuscular Hemoglobin 27.6 pg (27.0-31.0); Mean Corpuscular Volume 83.4 fL (78.0-98.0); Mean Platelet Volume 10.9 fL (7.4-10.4); Platelet Count 150 thou/uL (130-400); RBC Distribution Width 14.9 % (11.5-14.5); Red Blood Cell (RBC) Count 3.22 mill/uL (4.70-6.10); White Blood Cell (WBC) Count 6.7 thou/uL (4.8-10.8)
[2021-09-08 06:40] LABS: Anion Gap 15 mmol/L (10-20); BUN (Urea Nitrogen) 43 mg/dL (8.9-20.6); Calc. Creatinine Clearance 46 mL/min (70-130); Calcium 8.8 mg/dL (7.8-10.44); Carbon Dioxide 27 mmol/L (22-29); Chloride 104 mmol/L (98-107); Glucose 120 mg/dL (70-105); Sodium 142 mmol/L (136-145)
[2021-09-08] MEDS: Carvedilol 25 MG TAB PO SCH ×2 (08:52→16:27)
[2021-09-08] MEDS: HumaLOG 300 UNITS/3 ML VIAL SC SCH ×3 (08:52→16:27)
[2021-09-08] MEDS: Ferrous Sulfate 325 MG TAB PO SCH ×2 (08:52→16:27)
[2021-09-08] MEDS: Heparin 5,000 UNITS/ML VIAL SC SCH ×3 (08:53→19:42)
[2021-09-08] MEDS: Sevelamer Carbonate 800 MG TAB PO SCH ×4 (08:53→16:26)
[2021-09-08] MEDS: NIFEdipine XL 60 MG TAB PO SCH ×3 (08:54→19:44)
[2021-09-08] MEDS ORDERED: NIFEdipine XL 60 MG TAB PO SCH (09:00)
[2021-09-08] MEDS ORDERED: READ PPD TEST SITE PO SCH (11:00)
[2021-09-08] MEDS: Lantus 1000 UNITS/10 ML VIAL SC SCH ×2 (11:19→19:42)
[2021-09-08] MEDS ORDERED: Regadenoson 0.4 MG/5 ML SYRINGE ONE (11:29)
[2021-09-08] MEDS: Atorvastatin Calcium 40 MG TAB PO SCH (16:26)
[2021-09-08] MEDS: Gabapentin 300 MG CAP PO SCH (16:26)
[2021-09-08] MEDS: Ezetimibe 10 MG TAB PO SCH (16:26)
[2021-09-08] MEDS: Calcitriol 0.25 MCG CAP PO SCH (16:26)
[2021-09-08] MEDS: Aspirin 81 mg Enteric Coated Tablet PO SCH (16:26)
[2021-09-09] MEDS: NIFEdipine XL 60 MG TAB PO SCH ×2 (08:11→20:57)
[2021-09-09] MEDS: Ferrous Sulfate 325 MG TAB PO SCH ×2 (08:11→17:05)
[2021-09-09] MEDS: Aspirin 81 mg Enteric Coated Tablet PO SCH (08:11)
[2021-09-09] MEDS: Sevelamer Carbonate 800 MG TAB PO SCH ×3 (08:12→17:05)
[2021-09-09] MEDS: Carvedilol 25 MG TAB PO SCH ×2 (08:12→17:05)
[2021-09-09] MEDS: Gabapentin 300 MG CAP PO SCH (08:12)
[2021-09-09] MEDS: Calcitriol 0.25 MCG CAP PO SCH (08:13)
[2021-09-09] MEDS: Ezetimibe 10 MG TAB PO SCH (08:13)
[2021-09-09] MEDS: Atorvastatin Calcium 40 MG TAB PO SCH (08:13)
[2021-09-09] MEDS: HumaLOG 300 UNITS/3 ML VIAL SC SCH ×3 (08:14→17:05)
[2021-09-09 08:18] LABS: #Basophils 0.1 thou/uL (0.0-0.2); #Eosinphils 0.2 thou/uL (0.0-0.7); #Lymphocytes 1.7 thou/uL (1.20-3.40); #Monocytes 0.8 thou/uL (0.11-0.59); #Neutrophils 4.3 thou/uL (1.40-6.50); %Basophils 1.4 % (0.0-1.0); %Eosinophils 3.4 % (0.0-10.0); %Lymphocytes 23.5 % (21.0-51.0); %Monocytes 11.3 % (0.0-10.0); %Neutrophils 60.4 % (42.0-75.0); Hemoglobin 9.1 g/dL (14.0-18.0); Mean Corpuscular HGB CONC 32.7 g/dL (32.0-36.0); Mean Corpuscular Hemoglobin 27.3 pg (27.0-31.0); Mean Corpuscular Volume 83.6 fL (78.0-98.0); Mean Platelet Volume 10.9 fL (7.4-10.4); Platelet Count 174 thou/uL (130-400); RBC Distribution Width 14.9 % (11.5-14.5); Red Blood Cell (RBC) Count 3.34 mill/uL (4.70-6.10); White Blood Cell (WBC) Count 7.1 thou/uL (4.8-10.8)
[2021-09-09 08:24] LABS: Anion Gap 15 mmol/L (10-20); BUN (Urea Nitrogen) 48 mg/dL (8.9-20.6); Calc. Creatinine Clearance 42 mL/min (70-130); Calcium 9.1 mg/dL (7.8-10.44); Carbon Dioxide 28 mmol/L (22-29); Chloride 104 mmol/L (98-107); Glucose 110 mg/dL (70-105); Potassium 3.9 mmol/L (3.5-5.1); Sodium 143 mmol/L (136-145)
[2021-09-09] MEDS: Heparin 5,000 UNITS/ML VIAL SC SCH ×3 (09:00→20:57)
[2021-09-09] MEDS ORDERED: Heparin 10,000 UNITS/ 10 ML VIAL ONE (10:52)
[2021-09-09] MEDS: Lantus 1000 UNITS/10 ML VIAL SC SCH ×2 (13:37→21:07)
[2021-09-09] MEDS ORDERED: diphenhydrAMINE 25 MG CAP PO SCH (22:00)
[2021-09-09] MEDS: Acetaminophen 325 MG TAB PO PRN (22:17)
[2021-09-10] MEDS ORDERED: Pregabalin 25 MG CAP PO SCH (00:30)
[2021-09-10 06:22] LABS: #Eosinphils 0.2 thou/uL (0.0-0.7); #Lymphocytes 1.5 thou/uL (1.20-3.40); #Monocytes 0.7 thou/uL (0.11-0.59); %Basophils 0.8 % (0.0-1.0); %Eosinophils 3.7 % (0.0-10.0); %Lymphocytes 22.7 % (21.0-51.0); %Monocytes 10.3 % (0.0-10.0); %Neutrophils 62.6 % (42.0-75.0); Hemoglobin 8.4 g/dL (14.0-18.0); Mean Corpuscular HGB CONC 32.8 g/dL (32.0-36.0); Mean Corpuscular Hemoglobin 27.5 pg (27.0-31.0); Mean Corpuscular Volume 83.9 fL (78.0-98.0); Mean Platelet Volume 10.3 fL (7.4-10.4); Platelet Count 154 thou/uL (130-400); RBC Distribution Width 14.6 % (11.5-14.5); Red Blood Cell (RBC) Count 3.06 mill/uL (4.70-6.10); White Blood Cell (WBC) Count 6.4 thou/uL (4.8-10.8)
[2021-09-10] MEDS: HumaLOG 300 UNITS/3 ML VIAL SC PRN (06:24)
[2021-09-10 06:43] LABS: Anion Gap 13 mmol/L (10-20); BUN (Urea Nitrogen) 33 mg/dL (8.9-20.6); Calc. Creatinine Clearance 55 mL/min (70-130); Calcium 8.9 mg/dL (7.8-10.44); Carbon Dioxide 28 mmol/L (22-29); Chloride 102 mmol/L (98-107); Glucose 163 mg/dL (70-105); Potassium 3.8 mmol/L (3.5-5.1); Sodium 139 mmol/L (136-145)
[2021-09-10] MEDS: Atorvastatin Calcium 40 MG TAB PO SCH (08:49)
[2021-09-10] MEDS: Ferrous Sulfate 325 MG TAB PO SCH ×2 (08:49→16:24)
[2021-09-10] MEDS: Sevelamer Carbonate 800 MG TAB PO SCH ×3 (08:49→16:24)
[2021-09-10] MEDS: Aspirin 81 mg Enteric Coated Tablet PO SCH (08:50)
[2021-09-10] MEDS: Gabapentin 300 MG CAP PO SCH (08:50)
[2021-09-10] MEDS: Calcitriol 0.25 MCG CAP PO SCH (08:50)
[2021-09-10] MEDS: Ezetimibe 10 MG TAB PO SCH (08:50)
[2021-09-10] MEDS: NIFEdipine XL 60 MG TAB PO SCH ×2 (08:50→20:53)
[2021-09-10] MEDS: Carvedilol 25 MG TAB PO SCH ×2 (08:50→16:24)
[2021-09-10] MEDS: Lantus 1000 UNITS/10 ML VIAL SC SCH ×2 (08:51→21:43)
[2021-09-10] MEDS: HumaLOG 300 UNITS/3 ML VIAL SC SCH ×3 (08:51→16:24)
[2021-09-10] MEDS: Heparin 5,000 UNITS/ML VIAL SC SCH ×3 (08:52→20:54)
[2021-09-11 05:56] LABS: #Eosinphils 0.2 thou/uL (0.0-0.7); #Lymphocytes 1.7 thou/uL (1.20-3.40); #Monocytes 0.6 thou/uL (0.11-0.59); #Neutrophils 3.7 thou/uL (1.40-6.50); %Basophils 0.6 % (0.0-1.0); %Lymphocytes 26.4 % (21.0-51.0); %Monocytes 10.1 % (0.0-10.0); %Neutrophils 58.8 % (42.0-75.0); Hemoglobin 8.4 g/dL (14.0-18.0); Mean Corpuscular HGB CONC 32.4 g/dL (32.0-36.0); Mean Corpuscular Hemoglobin 27.3 pg (27.0-31.0); Mean Platelet Volume 10.3 fL (7.4-10.4); Platelet Count 160 thou/uL (130-400); RBC Distribution Width 14.8 % (11.5-14.5); Red Blood Cell (RBC) Count 3.09 mill/uL (4.70-6.10); White Blood Cell (WBC) Count 6.3 thou/uL (4.8-10.8)
[2021-09-11] MEDS: HumaLOG 300 UNITS/3 ML VIAL SC PRN (06:02)
[2021-09-11 06:24] LABS: Anion Gap 13 mmol/L (10-20); BUN (Urea Nitrogen) 40 mg/dL (8.9-20.6); Calc. Creatinine Clearance 48 mL/min (70-130); Carbon Dioxide 29 mmol/L (22-29); Chloride 103 mmol/L (98-107); Glucose 187 mg/dL (70-105); Sodium 141 mmol/L (136-145)
[2021-09-11] MEDS: Aspirin 81 mg Enteric Coated Tablet PO SCH (08:39)
[2021-09-11] MEDS: NIFEdipine XL 60 MG TAB PO SCH ×2 (08:39→20:26)
[2021-09-11] MEDS: Atorvastatin Calcium 40 MG TAB PO SCH (08:39)
[2021-09-11] MEDS: Ferrous Sulfate 325 MG TAB PO SCH ×2 (08:39→17:02)
[2021-09-11] MEDS: Gabapentin 300 MG CAP PO SCH (08:40)
[2021-09-11] MEDS: Carvedilol 25 MG TAB PO SCH ×2 (08:40→17:02)
[2021-09-11] MEDS: HumaLOG 300 UNITS/3 ML VIAL SC SCH ×3 (08:40→17:02)
[2021-09-11] MEDS: Sevelamer Carbonate 800 MG TAB PO SCH ×3 (08:40→17:02)
[2021-09-11] MEDS: Ezetimibe 10 MG TAB PO SCH (08:40)
[2021-09-11] MEDS: Calcitriol 0.25 MCG CAP PO SCH (08:40)
[2021-09-11] MEDS: Heparin 5,000 UNITS/ML VIAL SC SCH ×3 (08:41→20:25)
[2021-09-11] MEDS: Lantus 1000 UNITS/10 ML VIAL SC SCH ×2 (08:41→21:38)
[2021-09-11] MEDS ORDERED: Benzonatate 100 MG CAP PO SCH (09:45)
[2021-09-12 07:14] LABS: #Eosinphils 0.2 thou/uL (0.0-0.7); #Lymphocytes 1.5 thou/uL (1.20-3.40); #Monocytes 0.6 thou/uL (0.11-0.59); #Neutrophils 3.9 thou/uL (1.40-6.50); %Basophils 0.7 % (0.0-1.0); %Eosinophils 3.8 % (0.0-10.0); %Lymphocytes 23.9 % (21.0-51.0); %Neutrophils 62.6 % (42.0-75.0); Hemoglobin 8.3 g/dL (14.0-18.0); Mean Corpuscular HGB CONC 32.6 g/dL (32.0-36.0); Mean Corpuscular Hemoglobin 27.5 pg (27.0-31.0); Mean Corpuscular Volume 84.5 fL (78.0-98.0); Mean Platelet Volume 9.9 fL (7.4-10.4); Platelet Count 157 thou/uL (130-400); RBC Distribution Width 14.5 % (11.5-14.5); Red Blood Cell (RBC) Count 3.02 mill/uL (4.70-6.10); White Blood Cell (WBC) Count 6.2 thou/uL (4.8-10.8)
[2021-09-12 07:47] LABS: Anion Gap 13 mmol/L (10-20); BUN (Urea Nitrogen) 49 mg/dL (8.9-20.6); Calc. Creatinine Clearance 41 mL/min (70-130); Calcium 8.8 mg/dL (7.8-10.44); Carbon Dioxide 28 mmol/L (22-29); Chloride 104 mmol/L (98-107); Glucose 171 mg/dL (70-105); Potassium 3.9 mmol/L (3.5-5.1); Sodium 141 mmol/L (136-145)
[2021-09-12] MEDS: Carvedilol 25 MG TAB PO SCH ×2 (08:14→17:43)
[2021-09-12] MEDS: NIFEdipine XL 60 MG TAB PO SCH ×2 (08:14→21:01)
[2021-09-12] MEDS: Aspirin 81 mg Enteric Coated Tablet PO SCH (08:17)
[2021-09-12] MEDS: HumaLOG 300 UNITS/3 ML VIAL SC SCH ×3 (08:17→17:43)
[2021-09-12] MEDS: Sevelamer Carbonate 800 MG TAB PO SCH ×3 (08:17→17:44)
[2021-09-12] MEDS: Atorvastatin Calcium 40 MG TAB PO SCH (08:17)
[2021-09-12] MEDS: Ferrous Sulfate 325 MG TAB PO SCH ×2 (08:17→17:43)
[2021-09-12] MEDS: Calcitriol 0.25 MCG CAP PO SCH (08:17)
[2021-09-12] MEDS: Gabapentin 300 MG CAP PO SCH (08:18)
[2021-09-12] MEDS: Ezetimibe 10 MG TAB PO SCH (08:18)
[2021-09-12] MEDS: Heparin 5,000 UNITS/ML VIAL SC SCH ×3 (08:19→21:21)
[2021-09-12] MEDS: Lantus 1000 UNITS/10 ML VIAL SC SCH ×2 (08:19→21:21)
[2021-09-12] MEDS ORDERED: Heparin 10,000 UNITS/ 10 ML VIAL ONE ×2 (08:45→11:12)
[2021-09-12] MEDS ORDERED: Propofol 500 MG/50 ML VIAL ONE (10:23)
[2021-09-12] MEDS ORDERED: Fentanyl 100 MCG/2 ML VIAL ONE ×2 (10:23→14:31)
[2021-09-12] MEDS ORDERED: Midazolam HCl 2 mg/2 ml Vial ONE (10:23)
[2021-09-12] MEDS ORDERED: Ketamine 50 MG/ML (10ML VIAL) ONE (10:23)
[2021-09-12] MEDS ORDERED: Bupivacaine 0.25% HCL 30 ML VIAL ONE (11:12)
[2021-09-12] MEDS ORDERED: Protamine Sulfate 50 MG/5 ML VIAL ONE (11:12)
[2021-09-12] MEDS ORDERED: Heparin 5,000 UNITS/ML VIAL ONE (11:12)
[2021-09-12] MEDS ORDERED: Lidocaine 2% w/Epinephrine 1:200K 20 ML VIAL ONE (11:12)
[2021-09-12] MEDS ORDERED: ceFAZolin 2 GM/Dextrose 50 ML IVPB ONE (12:02)
[2021-09-12] MEDS ORDERED: PROPOFOL 200 MG/20 ML VIAL ONE (12:17)
[2021-09-12] MEDS ORDERED: Rocuronium Bromide 10 MG/ML (10ML VIAL) ONE (12:17)
[2021-09-12] MEDS ORDERED: Ondansetron PF 4 MG/2 ML Vial ONE (12:17)
[2021-09-12] MEDS ORDERED: Lidocaine 1% PF 5 ML VIAL ONE (12:17)
[2021-09-12] MEDS ORDERED: ePHEDrine 50 MG/ML VIAL ONE (12:17)
[2021-09-12 12:33] LABS: SARS-CoV-2 PCR by NAA Not Detected (NotDetected)
[2021-09-12] MEDS ORDERED: SUGAMMADEX SODIUM 200 MG/2 ML VIAL ONE (13:46)
[2021-09-12] MEDS: traMADol HCl 50 MG TAB PO PRN (16:18)
[2021-09-12] MEDS: EPOETIN ALFA-EPBX (ESRD) 4,000 UNIT/ML VIAL SC SCH (16:19)
[2021-09-12] MEDS ORDERED: Gabapentin 300 MG CAP PO SCH (21:00)
[2021-09-12] MEDS: Acetaminophen 325 MG TAB PO PRN (21:02)
[2021-09-13] MEDS: traMADol HCl 50 MG TAB PO PRN ×4 (01:21→19:52)
[2021-09-13] MEDS: Acetaminophen 325 MG TAB PO PRN ×2 (01:23→10:14)
[2021-09-13 06:12] LABS: #Eosinphils 0.3 thou/uL (0.0-0.7); #Lymphocytes 1.3 thou/uL (1.20-3.40); #Monocytes 0.7 thou/uL (0.11-0.59); %Eosinophils 3.7 % (0.0-10.0); %Lymphocytes 17.5 % (21.0-51.0); %Monocytes 9.3 % (0.0-10.0); %Neutrophils 69.6 % (42.0-75.0); Mean Corpuscular HGB CONC 31.2 g/dL (32.0-36.0); Mean Corpuscular Hemoglobin 26.4 pg (27.0-31.0); Mean Corpuscular Volume 84.6 fL (78.0-98.0); Mean Platelet Volume 10.1 fL (7.4-10.4); Platelet Count 165 thou/uL (130-400); RBC Distribution Width 14.5 % (11.5-14.5); Red Blood Cell (RBC) Count 3.03 mill/uL (4.70-6.10); White Blood Cell (WBC) Count 7.2 thou/uL (4.8-10.8)
[2021-09-13 06:41] LABS: Anion Gap 15 mmol/L (10-20); BUN (Urea Nitrogen) 41 mg/dL (8.9-20.6); Calc. Creatinine Clearance 47 mL/min (70-130); Calcium 8.7 mg/dL (7.8-10.44); Carbon Dioxide 27 mmol/L (22-29); Chloride 102 mmol/L (98-107); Glucose 139 mg/dL (70-105); Sodium 140 mmol/L (136-145)
[2021-09-13] MEDS ORDERED: HYDROcodone/Acetaminophen 7.5/325 mg Tablet PO PRN (09:55)
[2021-09-13] MEDS: Sevelamer Carbonate 800 MG TAB PO SCH ×3 (10:03→18:18)
[2021-09-13] MEDS: Aspirin 81 mg Enteric Coated Tablet PO SCH (10:03)
[2021-09-13] MEDS: Atorvastatin Calcium 40 MG TAB PO SCH (10:03)
[2021-09-13] MEDS: Ferrous Sulfate 325 MG TAB PO SCH ×3 (10:03→17:01)
[2021-09-13] MEDS: Ezetimibe 10 MG TAB PO SCH (10:03)
[2021-09-13] MEDS: Calcitriol 0.25 MCG CAP PO SCH (10:04)
[2021-09-13] MEDS: Carvedilol 25 MG TAB PO SCH ×2 (10:04→16:58)
[2021-09-13] MEDS: NIFEdipine XL 60 MG TAB PO SCH ×2 (10:04→21:38)
[2021-09-13] MEDS: HumaLOG 300 UNITS/3 ML VIAL SC SCH ×4 (10:04→16:59)
[2021-09-13] MEDS: Gabapentin 300 MG CAP PO SCH (10:05)
[2021-09-13] MEDS: Lantus 1000 UNITS/10 ML VIAL SC SCH ×2 (10:05→21:43)
[2021-09-13] MEDS: Heparin 5,000 UNITS/ML VIAL SC SCH ×3 (10:06→17:01)
[2021-09-13 13:58] VITALS: BMI 46.7
[2021-09-13] MEDS ORDERED: Metoclopramide HCl 10 MG/2 ML VIAL IVP SCH (19:45)
[2021-09-14 06:38] LABS: #Basophils 0.1 thou/uL (0.0-0.2); #Eosinphils 0.3 thou/uL (0.0-0.7); #Lymphocytes 1.3 thou/uL (1.20-3.40); #Monocytes 0.6 thou/uL (0.11-0.59); #Neutrophils 4.5 thou/uL (1.40-6.50); %Basophils 0.8 % (0.0-1.0); %Eosinophils 4.7 % (0.0-10.0); %Lymphocytes 18.8 % (21.0-51.0); %Monocytes 9.2 % (0.0-10.0); %Neutrophils 66.5 % (42.0-75.0); Hemoglobin 7.8 g/dL (14.0-18.0); Mean Corpuscular HGB CONC 31.8 g/dL (32.0-36.0); Mean Corpuscular Hemoglobin 27.2 pg (27.0-31.0); Mean Corpuscular Volume 85.5 fL (78.0-98.0); Mean Platelet Volume 10.4 fL (7.4-10.4); Platelet Count 170 thou/uL (130-400); RBC Distribution Width 14.5 % (11.5-14.5); Red Blood Cell (RBC) Count 2.88 mill/uL (4.70-6.10); White Blood Cell (WBC) Count 6.7 thou/uL (4.8-10.8)
[2021-09-14 07:00] LABS: Anion Gap 13 mmol/L (10-20); BUN (Urea Nitrogen) 48 mg/dL (8.9-20.6); Calc. Creatinine Clearance 41 mL/min (70-130); Calcium 8.8 mg/dL (7.8-10.44); Carbon Dioxide 28 mmol/L (22-29); Chloride 102 mmol/L (98-107); Glucose 111 mg/dL (70-105); Potassium 4.2 mmol/L (3.5-5.1); Sodium 139 mmol/L (136-145)
[2021-09-14] MEDS: Heparin 5,000 UNITS/ML VIAL SC SCH ×3 (08:48→20:34)
[2021-09-14] MEDS: HumaLOG 300 UNITS/3 ML VIAL SC SCH ×4 (08:49→17:38)
[2021-09-14] MEDS: Lantus 1000 UNITS/10 ML VIAL SC SCH (08:49)
[2021-09-14] MEDS: traMADol HCl 50 MG TAB PO PRN ×3 (08:54→18:28)
[2021-09-14] MEDS: Calcitriol 0.25 MCG CAP PO SCH (08:54)
[2021-09-14] MEDS: Sevelamer Carbonate 800 MG TAB PO SCH ×3 (08:54→17:40)
[2021-09-14] MEDS ORDERED: Heparin 10,000 UNITS/ 10 ML VIAL ONE (11:12)
[2021-09-14] MEDS: Aspirin 81 mg Enteric Coated Tablet PO SCH (14:18)
[2021-09-14] MEDS: Atorvastatin Calcium 40 MG TAB PO SCH (14:18)
[2021-09-14] MEDS: NIFEdipine XL 60 MG TAB PO SCH ×2 (14:19→20:34)
[2021-09-14] MEDS: Carvedilol 25 MG TAB PO SCH ×2 (14:19→17:39)
[2021-09-14] MEDS: Ezetimibe 10 MG TAB PO SCH (14:19)
[2021-09-14] MEDS: Gabapentin 300 MG CAP PO SCH (14:20)
[2021-09-14] MEDS: Ferrous Sulfate 325 MG TAB PO SCH ×2 (14:44→17:39)
[2021-09-15] MEDS: Acetaminophen 325 MG TAB PO PRN (03:07)
[2021-09-15] MEDS: traMADol HCl 50 MG TAB PO PRN (03:08)
[2021-09-15 04:47] LABS: #Basophils 0.1 thou/uL (0.0-0.2); #Eosinphils 0.3 thou/uL (0.0-0.7); #Lymphocytes 1.4 thou/uL (1.20-3.40); #Monocytes 0.7 thou/uL (0.11-0.59); #Neutrophils 5.1 thou/uL (1.40-6.50); %Basophils 0.7 % (0.0-1.0); %Eosinophils 3.9 % (0.0-10.0); %Lymphocytes 18.1 % (21.0-51.0); %Monocytes 9.1 % (0.0-10.0); %Neutrophils 68.2 % (42.0-75.0); Hemoglobin 8.6 g/dL (14.0-18.0); Mean Corpuscular Hemoglobin 28.1 pg (27.0-31.0); Mean Corpuscular Volume 85.1 fL (78.0-98.0); Mean Platelet Volume 10.1 fL (7.4-10.4); Platelet Count 174 thou/uL (130-400); RBC Distribution Width 14.5 % (11.5-14.5); Red Blood Cell (RBC) Count 3.05 mill/uL (4.70-6.10); White Blood Cell (WBC) Count 7.5 thou/uL (4.8-10.8)
[2021-09-15 05:09] LABS: Anion Gap 15 mmol/L (10-20); BUN (Urea Nitrogen) 32 mg/dL (8.9-20.6); Calc. Creatinine Clearance 51 mL/min (70-130); Carbon Dioxide 28 mmol/L (22-29); Chloride 100 mmol/L (98-107); Glucose 120 mg/dL (70-105); Sodium 139 mmol/L (136-145)
[2021-09-15] MEDS: Sevelamer Carbonate 800 MG TAB PO SCH ×3 (08:31→17:52)
[2021-09-15] MEDS: Heparin 5,000 UNITS/ML VIAL SC SCH ×2 (08:31→15:20)
[2021-09-15] MEDS: Atorvastatin Calcium 40 MG TAB PO SCH (08:31)
[2021-09-15] MEDS: Aspirin 81 mg Enteric Coated Tablet PO SCH (08:32)
[2021-09-15] MEDS: Calcitriol 0.25 MCG CAP PO SCH (08:32)
[2021-09-15] MEDS: Carvedilol 25 MG TAB PO SCH ×2 (08:32→17:50)
[2021-09-15] MEDS: Ezetimibe 10 MG TAB PO SCH (08:32)
[2021-09-15] MEDS: Ferrous Sulfate 325 MG TAB PO SCH ×2 (08:32→17:50)
[2021-09-15] MEDS: Lantus 1000 UNITS/10 ML VIAL SC SCH (08:34)
[2021-09-15] MEDS: HumaLOG 300 UNITS/3 ML VIAL SC SCH ×3 (08:45→17:51)
[2021-09-15] MEDS: Gabapentin 300 MG CAP PO SCH (08:46)
[2021-09-15 16:16] VITALS: BP 128/77; TEMP 98
[2021-09-15] MEDS ORDERED: NIFEdipine XL 60 MG TAB PO SCH (21:00)
== END 2021-09-15 19:56 | disposition home or self-care (01) | DRG 252 ==
LOC: ERS 00:08 → NEURO 04:15 → OBSVTOIN 08-31 16:19
PROVIDERS: ADMIT Student in an Organized Health Care Education/Training Program; ATTEND Student in an Organized Health Care Education/Training Program
PROC: 5A1D70Z Performance of Urinary Filtration, Intermittent, Less than 6 Hours Per Day (ICD-10-PCS; principal; 2021-09-05)
PROC: B5181ZA Fluoroscopy of Superior Vena Cava using Low Osmolar Contrast, Guidance (ICD-10-PCS; 2021-09-05)
PROC: 02HV33Z Insertion of Infusion Device into Superior Vena Cava, Percutaneous Approach (ICD-10-PCS; 2021-09-05)
PROC: 0JH60XZ Insertion of Tunneled Vascular Access Device into Chest Subcutaneous Tissue and Fascia, Open Approach (ICD-10-PCS; 2021-09-05)
PROC: 02HV33Z Insertion of Infusion Device into Superior Vena Cava, Percutaneous Approach (ICD-10-PCS; 2021-09-05)
PROC: B548ZZA Ultrasonography of Superior Vena Cava, Guidance (ICD-10-PCS; 2021-09-05)
PROC: 05CD0ZZ Extirpation of Matter from Right Cephalic Vein, Open Approach (ICD-10-PCS; 2021-09-12)
PROC: 031B0ZF Bypass Right Radial Artery to Lower Arm Vein, Open Approach (ICD-10-PCS; 2021-09-12)
PROC: 0WHG43Z Insertion of Infusion Device into Peritoneal Cavity, Percutaneous Endoscopic Approach (ICD-10-PCS; 2021-09-12)
PROC: 0DQU4ZZ Repair Omentum, Percutaneous Endoscopic Approach (ICD-10-PCS; 2021-09-12)
DX: I13.2 Hypertensive heart and chronic kidney disease with heart failure and with stage 5 chronic kidney disease, or end stage renal disease (principal); I50.43 Acute on chronic combined systolic (congestive) and diastolic (congestive) heart failure; N18.6 End stage renal disease; Z20.822 Contact with and (suspected) exposure to COVID-19; E11.00 Type 2 diabetes mellitus with hyperosmolarity without nonketotic hyperglycemic-hyperosmolar coma (NKHHC); J96.01 Acute respiratory failure with hypoxia; I21.A1 Myocardial infarction type 2; N17.9 Acute kidney failure, unspecified; I16.1 Hypertensive emergency; N25.81 Secondary hyperparathyroidism of renal origin; T82.868A Thrombosis due to vascular prosthetic devices, implants and grafts, initial encounter; I47.2 Ventricular tachycardia; Z68.42 Body mass index [BMI] 45.0-49.9, adult; I42.8 Other cardiomyopathies; D63.1 Anemia in chronic kidney disease; E11.22 Type 2 diabetes mellitus with diabetic chronic kidney disease; E78.5 Hyperlipidemia, unspecified; F41.9 Anxiety disorder, unspecified; F32.A Depression, unspecified; K21.9 Gastro-esophageal reflux disease without esophagitis; F12.10 Cannabis abuse, uncomplicated; E66.01 Morbid (severe) obesity due to excess calories; G47.33 Obstructive sleep apnea (adult) (pediatric); I08.1 Rheumatic disorders of both mitral and tricuspid valves; F17.210 Nicotine dependence, cigarettes, uncomplicated; E11.65 Type 2 diabetes mellitus with hyperglycemia; E11.40 Type 2 diabetes mellitus with diabetic neuropathy, unspecified; E88.81 Metabolic syndrome and other insulin resistance; E78.00 Pure hypercholesterolemia, unspecified; Y84.8 Other medical procedures as the cause of abnormal reaction of the patient, or of later complication, without mention of misadventure at the time of the procedure; E83.39 Other disorders of phosphorus metabolism; I49.1 Atrial premature depolarization; Z91.15 Patient's noncompliance with renal dialysis; Z28.21 Immunization not carried out because of patient refusal; Z91.14 Patient's other noncompliance with medication regimen; Z91.11 Patient's noncompliance with dietary regimen; Z79.899 Other long term (current) drug therapy; Z79.4 Long term (current) use of insulin; Z79.82 Long term (current) use of aspirin; Z86.16 Personal history of COVID-19; Z83.3 Family history of diabetes mellitus; Z83.49 Family history of other endocrine, nutritional and metabolic diseases; Z82.49 Family history of ischemic heart disease and other diseases of the circulatory system; Z87.01 Personal history of pneumonia (recurrent); Z71.51 Drug abuse counseling and surveillance of drug abuser
CPT/HCPCS: 36415; 36416; 71045; 71046; 76770; 78452; 80048; 80053; 80306; 81001; 82553; 83036; 83880; 83970; 84100; 84145; 84443; 84484; 85025; 86580; 86704; 86706; 86803; 87340; 90935; 93005; 93010; 93017; 93306; 93970; 94640; 96365; 96366; 96372; 96374; 96375; 96376; A9500; C1751; C1752; C1776; G0257; G0378; J0360; J0690; J1644; J1650; J1815; J1940; J2250; J2405; J2704; J2720; J2765; J2785; J3010; J3490; J7611; P9047; S0020; U0003; U0005

== ENCOUNTER 2021-09-23 17:04 | Emergency (ER) | payer OTHER ==
[2021-09-23] MEDS ORDERED: Lidocaine 1% PF 5 ML VIAL ONE (17:37)
[2021-09-23] MEDS ORDERED: Silver Nitrate Application 1 EACH ONE ×2 (17:37→17:39)
[2021-09-23] MEDS ORDERED: Xylocaine 1% w/ Epi 1:100K 10 ML VIAL ONE (17:40)
== END 2021-09-23 18:47 | disposition home or self-care (01) ==
LOC: ERS 17:04
DX: T82.838A Hemorrhage due to vascular prosthetic devices, implants and grafts, initial encounter (principal); E78.5 Hyperlipidemia, unspecified; K21.9 Gastro-esophageal reflux disease without esophagitis; I11.0 Hypertensive heart disease with heart failure; I50.9 Heart failure, unspecified; G47.33 Obstructive sleep apnea (adult) (pediatric); Z79.4 Long term (current) use of insulin; Z79.82 Long term (current) use of aspirin; Z79.899 Other long term (current) drug therapy
CPT/HCPCS: 99283

== ENCOUNTER 2021-09-24 23:55 | Emergency (ER) | payer OTHER ==
[2021-09-25 01:02] LABS: #Eosinphils 0.4 thou/uL (0.0-0.7); #Lymphocytes 1.5 thou/uL (1.20-3.40); #Monocytes 0.6 thou/uL (0.11-0.59); #Neutrophils 5.1 thou/uL (1.40-6.50); %Basophils 0.5 % (0.0-1.0); %Eosinophils 4.8 % (0.0-10.0); %Lymphocytes 19.5 % (21.0-51.0); %Monocytes 8.4 % (0.0-10.0); %Neutrophils 66.8 % (42.0-75.0); Hemoglobin 8.6 g/dL (14.0-18.0); Mean Corpuscular HGB CONC 32.3 g/dL (32.0-36.0); Mean Corpuscular Hemoglobin 27.9 pg (27.0-31.0); Mean Corpuscular Volume 86.5 fL (78.0-98.0); Mean Platelet Volume 9.9 fL (7.4-10.4); Platelet Count 183 thou/uL (130-400); RBC Distribution Width 14.3 % (11.5-14.5); Red Blood Cell (RBC) Count 3.07 mill/uL (4.70-6.10); White Blood Cell (WBC) Count 7.6 thou/uL (4.8-10.8)
== END 2021-09-25 02:27 | disposition home or self-care (01) ==
LOC: ERS 23:55
DX: T85.611A Breakdown (mechanical) of intraperitoneal dialysis catheter, initial encounter (principal); E78.5 Hyperlipidemia, unspecified; E11.9 Type 2 diabetes mellitus without complications; I11.0 Hypertensive heart disease with heart failure; I50.9 Heart failure, unspecified; Z79.899 Other long term (current) drug therapy
CPT/HCPCS: 36415; 85025; 99284

== ENCOUNTER 2021-10-05 11:53 | Outpatient (CLI) | payer OTHER ==
[2021-10-05 19:36] LABS: SARS-CoV-2 PCR by NAA Not Detected (NotDetected)
== END 2021-10-05 11:54 | disposition home or self-care (01) ==
LOC: LABBT 11:53
PROVIDERS: ATTEND Specialist
DX: N18.6 End stage renal disease (principal); Z20.822 Contact with and (suspected) exposure to COVID-19
CPT/HCPCS: U0003; U0005

== ENCOUNTER 2021-10-07 11:20 | Day surgery (SDC) | payer OTHER ==
[2021-10-05 10:35] VITALS: BMI 45.0
[2021-10-07 12:42] LABS: #Eosinphils 0.2 thou/uL (0.0-0.7); #Lymphocytes 1.5 thou/uL (1.20-3.40); #Monocytes 0.6 thou/uL (0.11-0.59); #Neutrophils 4.9 thou/uL (1.40-6.50); %Basophils 0.7 % (0.0-1.0); %Eosinophils 2.5 % (0.0-10.0); %Lymphocytes 21.1 % (21.0-51.0); %Monocytes 8.3 % (0.0-10.0); %Neutrophils 67.5 % (42.0-75.0); Hemoglobin 8.4 g/dL (14.0-18.0); Mean Corpuscular HGB CONC 31.8 g/dL (32.0-36.0); Mean Corpuscular Hemoglobin 27.2 pg (27.0-31.0); Mean Corpuscular Volume 85.5 fL (78.0-98.0); Mean Platelet Volume 9.2 fL (7.4-10.4); Platelet Count 204 thou/uL (130-400); RBC Distribution Width 14.7 % (11.5-14.5); White Blood Cell (WBC) Count 7.3 thou/uL (4.8-10.8)
[2021-10-07 13:00] LABS: Anion Gap 12 mmol/L (10-20); BUN (Urea Nitrogen) 17 mg/dL (8.9-20.6); Calc. Creatinine Clearance 64 mL/min (70-130); Calcium 8.9 mg/dL (7.8-10.44); Carbon Dioxide 30 mmol/L (22-29); Chloride 101 mmol/L (98-107); Glucose 296 mg/dL (70-105); Potassium 3.2 mmol/L (3.5-5.1); Sodium 140 mmol/L (136-145)
[2021-10-07] MEDS ORDERED: Bupivacaine PF 0.5% 30 ML VIAL ONE (13:36)
[2021-10-07] MEDS ORDERED: Xylocaine 1% w/ Epi 1:100K 10 ML VIAL ONE (13:36)
[2021-10-07] MEDS ORDERED: Fentanyl 250 MCG/5 ML VIAL ONE (13:41)
[2021-10-07] MEDS ORDERED: ceFAZolin 2 GM/Dextrose 50 ML IVPB ONE (13:45)
[2021-10-07] MEDS ORDERED: Ondansetron PF 4 MG/2 ML Vial ONE (13:55)
[2021-10-07] MEDS ORDERED: PROPOFOL 200 MG/20 ML VIAL ONE (13:55)
[2021-10-07] MEDS ORDERED: Midazolam HCl 2 mg/2 ml Vial ONE (14:01)
[2021-10-07] MEDS ORDERED: Heparin 1,000 UNITS/ML VIAL ONE (15:50)
[2021-10-07] MEDS ORDERED: HYDROcodone/Acetaminophen 5/325 mg Tablet ONE (16:07)
== END 2021-10-07 14:35 | disposition home or self-care (01) ==
LOC: SDC 11:20
PROVIDERS: ATTEND Specialist
PROC: 0WPG03Z Removal of Infusion Device from Peritoneal Cavity, Open Approach (ICD-10-PCS; principal; 2021-10-07)
DX: Z49.02 Encounter for fitting and adjustment of peritoneal dialysis catheter (principal); E11.22 Type 2 diabetes mellitus with diabetic chronic kidney disease; N18.6 End stage renal disease; E78.00 Pure hypercholesterolemia, unspecified; Z79.4 Long term (current) use of insulin; Z79.82 Long term (current) use of aspirin; Z79.899 Other long term (current) drug therapy; Z86.16 Personal history of COVID-19
CPT/HCPCS: 80048; 85025; J0690; J1644; J2250; J3010; S0020

== ENCOUNTER 2022-02-02 07:47 | Day surgery (SDC) | payer OTHER ==
[2022-02-02 08:32] VITALS: BP 153/86; TEMP 98.2; BMI 38.1
[2022-02-02] MEDS ORDERED: Heparin 1,000 UNITS/ML VIAL ONE (10:50)
[2022-02-02] MEDS ORDERED: Iopamidol 300 61% 50 ML VIAL FS ONE (11:44)
== END 2022-02-02 10:45 | disposition home or self-care (01) ==
LOC: SPEC 07:47
PROVIDERS: ATTEND Specialist
PROC: B51W1ZZ Fluoroscopy of Dialysis Shunt/Fistula using Low Osmolar Contrast (ICD-10-PCS; principal; 2022-02-02)
DX: T82.898A Other specified complication of vascular prosthetic devices, implants and grafts, initial encounter (principal); E11.22 Type 2 diabetes mellitus with diabetic chronic kidney disease; N18.6 End stage renal disease; E78.00 Pure hypercholesterolemia, unspecified; Z79.899 Other long term (current) drug therapy; Z79.82 Long term (current) use of aspirin; Z79.4 Long term (current) use of insulin; Y81.3 Surgical instruments, materials and general- and plastic-surgery devices (including sutures) associated with adverse incidents
CPT/HCPCS: 36901; J1644; Q9967

== ENCOUNTER 2022-04-27 10:10 | Outpatient (CLI) | payer OTHER ==
[2022-04-27 12:03] LABS: Hemoglobin 10.2 g/dL (13.5-17.5); Mean Corpuscular HGB CONC 32.4 g/dL (32.0-36.0); Mean Corpuscular Hemoglobin 26.8 pg (27.0-33.0); Mean Corpuscular Volume 82.7 fl (81.2-95.1); Mean Platelet Volume 12.2 fl (7.4-10.4); Platelet Count 197 10x3/uL (150-450); Red Blood Cell (RBC) Count 3.81 10x6/uL (4.32-5.72); White Blood Cell (WBC) Count 6.4 10x3/uL (3.5-10.5)
[2022-04-27 12:22] LABS: Anion Gap 14 mmol/L (10-20); BUN (Urea Nitrogen) 31 mg/dL (8.9-20.6); Calc. Creatinine Clearance 0 mL/min (70-130); Calcium 8.9 mg/dL (7.8-10.44); Carbon Dioxide 28 mmol/L (22-29); Chloride 104 mmol/L (98-107); Estimated GFR 9; Glucose 213 mg/dL (70-105); Potassium 3.8 mmol/L (3.5-5.1); Sodium 142 mmol/L (136-145)
== END 2022-04-27 10:11 | disposition home or self-care (01) ==
LOC: LABBT 10:10
PROVIDERS: ATTEND Thoracic Surgery (Cardiothoracic Vascular Surgery)
DX: Z01.812 Encounter for preprocedural laboratory examination (principal); Z20.822 Contact with and (suspected) exposure to COVID-19
CPT/HCPCS: 80048; 85027; 87811

== ENCOUNTER 2022-04-28 08:12 | Day surgery (SDC) | payer OTHER ==
[2022-04-27 09:11] VITALS: BMI 39.7
[2022-04-28] MEDS ORDERED: Iopamidol 370 76% 50 ML VIAL FS ONE (10:42)
[2022-04-28] MEDS ORDERED: Lidocaine 1% (PF) 30 ML VIAL ONE (11:19)
[2022-04-28] MEDS ORDERED: Heparin 10,000 UNITS/ 10 ML VIAL ONE (11:47)
[2022-04-28] MEDS ORDERED: Fentanyl 100 MCG/2 ML VIAL ONE (11:50)
[2022-04-28] MEDS ORDERED: Midazolam HCl 2 mg/2 ml Vial ONE (11:50)
[2022-04-28] MEDS ORDERED: hydrALAZINE 20 MG/ML VIAL ONE (13:36)
[2022-04-28] MEDS ORDERED: hydrALAZINE 20 MG/ML VIAL SLOW IVP SCH (14:00)
== END 2022-04-28 16:30 | disposition home or self-care (01) ==
LOC: SDC 08:12
PROVIDERS: ATTEND Thoracic Surgery (Cardiothoracic Vascular Surgery)
PROC: B31JZZZ Fluoroscopy of Left Upper Extremity Arteries (ICD-10-PCS; principal; 2022-04-28)
DX: T82.510A Breakdown (mechanical) of surgically created arteriovenous fistula, initial encounter (principal); I77.89 Other specified disorders of arteries and arterioles
CPT/HCPCS: 36215; 36216; 75716; 99152; 99153; C1769; C1887; J0360; J1644; J2001; J2250; J3010; Q9967

== ENCOUNTER 2022-05-29 15:52 | Outpatient (CLI) | payer OTHER | END 2022-05-29 15:53 | disposition home or self-care (01) | LOC: LABBT 15:52 | PROVIDERS: ATTEND Specialist | DX: Z01.810 Encounter for preprocedural cardiovascular examination (principal); T82.590A Other mechanical complication of surgically created arteriovenous fistula, initial encounter; N18.6 End stage renal disease; I87.8 Other specified disorders of veins | CPT/HCPCS: 93005; 93010 ==

== ENCOUNTER 2022-06-02 10:32 | Day surgery (SDC) | payer OTHER ==
[2022-06-01 12:16] VITALS: BMI 39.7
[2022-06-02 13:11] LABS: #Basophils 0.1 thou/uL (0.0-0.2); #Eosinphils 0.2 thou/uL (0.0-0.7); #Lymphocytes 1.8 thou/uL (1.20-3.40); #Monocytes 0.7 thou/uL (0.11-0.59); %Basophils 1.2 % (0.0-1.0); %Eosinophils 2.5 % (0.0-10.0); %Lymphocytes 22.9 % (21.0-51.0); %Neutrophils 64.5 % (42.0-75.0); Hemoglobin 10.5 g/dL (14.0-18.0); Mean Corpuscular HGB CONC 30.9 g/dL (32.0-36.0); Mean Corpuscular Hemoglobin 26.9 pg (27.0-31.0); Mean Corpuscular Volume 87.1 fl (78.0-98.0); Mean Platelet Volume 10.6 fL (7.4-10.4); Platelet Count 171 thou/uL (130-400); RBC Distribution Width 15.7 % (11.5-14.5); Red Blood Cell (RBC) Count 3.89 mill/uL (4.70-6.10); White Blood Cell (WBC) Count 7.7 thou/uL (4.8-10.8)
[2022-06-02 13:29] LABS: Anion Gap 12 mmol/L (10-20); BUN (Urea Nitrogen) 24 mg/dL (8.9-20.6); Calc. Creatinine Clearance 35 mL/min (70-130); Calcium 9.7 mg/dL (7.8-10.44); Carbon Dioxide 29 mmol/L (22-29); Chloride 102 mmol/L (98-107); Estimated GFR 12; Glucose 170 mg/dL (70-105); Sodium 139 mmol/L (136-145)
[2022-06-02] MEDS ORDERED: fentaNYL Citrate/PF 100 MCG/2 ML SYRINGE ONE (14:45)
[2022-06-02] MEDS ORDERED: Lidocaine 2% PF 5 ML VIAL ONE ×2 (14:46→15:50)
[2022-06-02] MEDS ORDERED: Bupivacaine HCl 0.5%/Epinephrine 1:200,000/PF 30 ml Vial ONE ×2 (14:46→15:50)
[2022-06-02] MEDS ORDERED: Protamine Sulfate 50 MG/5 ML VIAL ONE (14:46)
[2022-06-02] MEDS ORDERED: Heparin 5,000 UNITS/ML VIAL ONE ×2 (14:46→15:50)
[2022-06-02] MEDS ORDERED: CEFAZOLIN 2 GM VIAL ONE (14:55)
[2022-06-02] MEDS ORDERED: Sodium Chloride 0.9% 100 ML ONE (14:55)
[2022-06-02] MEDS ORDERED: Ondansetron PF 4 MG/2 ML Vial ONE (15:02)
[2022-06-02] MEDS ORDERED: Succinylcholine 200 MG/10 ml SYRINGE FS ONE (15:02)
[2022-06-02] MEDS ORDERED: PROPOFOL 200 MG/20 ML VIAL ONE (15:02)
[2022-06-02] MEDS ORDERED: Rocuronium Bromide 10 MG/ML (10ML VIAL) ONE (15:02)
[2022-06-02] MEDS ORDERED: Heparin 10,000 UNITS/ 10 ML VIAL ONE (15:25)
[2022-06-02] MEDS ORDERED: Ketamine 50 MG/ML (10ML VIAL) ONE (16:18)
[2022-06-02] MEDS ORDERED: Heparin 1,000 UNITS/ML VIAL ONE (17:02)
== END 2022-06-02 17:30 | disposition home or self-care (01) ==
LOC: SDC 10:32
PROVIDERS: ATTEND Specialist
PROC: 031C0ZF Bypass Left Radial Artery to Lower Arm Vein, Open Approach (ICD-10-PCS; principal; 2022-06-02)
DX: I12.0 Hypertensive chronic kidney disease with stage 5 chronic kidney disease or end stage renal disease (principal); E11.22 Type 2 diabetes mellitus with diabetic chronic kidney disease; N18.6 End stage renal disease; T82.868A Thrombosis due to vascular prosthetic devices, implants and grafts, initial encounter; I87.8 Other specified disorders of veins; E66.01 Morbid (severe) obesity due to excess calories; Z68.39 Body mass index [BMI] 39.0-39.9, adult; Z79.4 Long term (current) use of insulin; Z79.82 Long term (current) use of aspirin; Z79.899 Other long term (current) drug therapy; Z99.2 Dependence on renal dialysis; Y81.3 Surgical instruments, materials and general- and plastic-surgery devices (including sutures) associated with adverse incidents
CPT/HCPCS: 80048; 85025; C1776; J1644; J2001; J2405; J2704; J2720; J3490

== ENCOUNTER 2023-08-25 10:46 | Emergency (ER) | payer OTHER | END 2023-08-25 12:55 | disposition home or self-care (01) | LOC: ERS 10:46 | DX: R22.43 Localized swelling, mass and lump, lower limb, bilateral (principal); R53.1 Weakness ==

== ENCOUNTER 2024-08-07 17:06 | Inpatient (IN) | payer OTHER ==
[2024-08-07] MEDS ORDERED: Piperacillin/Tazobactam 4.5 GM VIAL ONE (18:44)
[2024-08-07 19:20] LABS: ALT (SGPT) 11 U/L (8-55); AST (SGOT) 30 U/L (5-34); Albumin 2.4 g/dL (3.5-5.0); Alkaline Phosphatase 148 U/L (40-110); Anion Gap 24 mmol/L (10-20); BUN (Urea Nitrogen) 89 mg/dL (8.9-20.6); Bilirubin, Total 1.1 mg/dL (0.2-1.2); Calc. Creatinine Clearance 0 mL/min (70-130); Calcium 8.8 mg/dL (7.8-10.44); Carbon Dioxide 15 mmol/L (22-29); Chloride 101 mmol/L (98-107); Estimated GFR 5; Globulin 4.4 g/dL (2.4-3.5); Glucose 110 mg/dL (70-105); Potassium 3.7 mmol/L (3.5-5.1); Protein, Total 6.8 g/dL (6.0-8.3); Sodium 136 mmol/L (136-145)
[2024-08-07 20:30] LABS: Hematocrit 28.8 % (42.0-52.0); Hemoglobin 9.8 g/dL (14.0-18.0); Mean Corpuscular Hemoglobin 26.8 pg (27.0-31.0); Mean Corpuscular Volume 78.9 fL (78.0-98.0); Platelet Count 99 10x3/uL (130-400); RBC Distribution Width 16.8 % (11.5-14.5); Red Blood Cell (RBC) Count 3.65 mill/uL (4.70-6.10)
[2024-08-07] MEDS ORDERED: Insulin Lispro 100 UNIT/ML 10 ML VIAL SC PRN ×2 (21:33)
[2024-08-07] MEDS ORDERED: Dextrose 5% in Water 1,000 ML IV PRN (21:33)
[2024-08-07] MEDS ORDERED: Glucagon 1 MG/ML KIT IM PRN (21:33)
[2024-08-07] MEDS ORDERED: Dextrose 50% Abboject 50 ML SYRINGE SLOW IVP PRN (21:33)
[2024-08-07 21:53] LABS: Band 3 % (5-11); Burr Cells SLIGHT = 2-5 cells HPF (0-1); Hypersegmented Neutrophil SLIGHT (None Seen); Hypochromia SLIGHT = 6-15 cells HPF (0-5); Lymphocytes 1 % (21-51); Microcytosis SLIGHT = 6-15 cells HPF (0-5); Monocytes 3 % (0-10); Neutrophil 93 % (42-75); Ovalocytes SLIGHT = 2-5 cells HPF (0-1); Platelet Adequacy Comment Platelets Decreased; Polychromasia SLIGHT = 2-3 cells HPF (0-2); Target Cells SLIGHT = 2-5 cells HPF (0-1); Toxic Granulation SLIGHT; Vacuoles SLIGHT
[2024-08-07] MEDS: Vancomycin (BATCH) 2 GM in Premix 1 BAG IVPB SCH (23:35)
[2024-08-07 23:53] VITALS: BMI 23.7
[2024-08-08] MEDS: Clindamycin/D5W 600 MG in Premix 1 BAG IVPB SCH (05:22)
[2024-08-08 05:47] LABS: Hematocrit 27.4 % (42.0-52.0); Hemoglobin 9.2 g/dL (14.0-18.0); Mean Corpuscular HGB CONC 33.6 g/dL (32.0-36.0); Mean Corpuscular Hemoglobin 26.5 pg (27.0-31.0); Platelet Count 93 10x3/uL (130-400); RBC Distribution Width 17.1 % (11.5-14.5); Red Blood Cell (RBC) Count 3.47 mill/uL (4.70-6.10)
[2024-08-08 05:55] LABS: Anion Gap 22 mmol/L (10-20); BUN (Urea Nitrogen) 93 mg/dL (8.9-20.6); Calc. Creatinine Clearance 9 mL/min (70-130); Calcium 8.5 mg/dL (7.8-10.44); Carbon Dioxide 13 mmol/L (22-29); Chloride 104 mmol/L (98-107); Estimated GFR 4; Glucose 130 mg/dL (70-105); Potassium 4.4 mmol/L (3.5-5.1); Sodium 135 mmol/L (136-145)
[2024-08-08 06:48] LABS: Anisocytosis SLIGHT = 6-15 cells HPF (0-5); Band 21 % (5-11); Hypochromia SLIGHT = 6-15 cells HPF (0-5); Lymphocytes 3 % (21-51); Microcytosis SLIGHT = 6-15 cells HPF (0-5); Monocytes 3 % (0-10); Neutrophil 73 % (42-75); Platelet Adequacy Comment Platelets Decreased; Poikilocytosis SLIGHT = 6-15 cells HPF (0-5); Polychromasia SLIGHT = 2-3 cells HPF (0-2); Target Cells SLIGHT = 2-5 cells HPF (0-1)
[2024-08-08] MEDS ORDERED: Non-Formulary Item 1 EACH (Fluoxetine Hcl [Fluoxetine Hcl] 20 MG Tablet) PO SCH (09:00)
[2024-08-08] MEDS: Cefepime 1 GM in Sodium Chloride 0.9% 100 ML IVPB SCH (09:12)
[2024-08-08] MEDS: Aspirin 81 mg Enteric Coated Tablet PO SCH (09:13)
[2024-08-08] MEDS: FLUoxetine HCl 20 MG CAP PO SCH (09:13)
[2024-08-08] MEDS: Pantoprazole 40 MG DR.TAB PO SCH (09:13)
[2024-08-08] MEDS: Montelukast Sodium 10 mg Tablet PO SCH (09:13)
[2024-08-08] MEDS: Calcitriol 0.25 MCG CAP PO SCH (09:14)
[2024-08-08] MEDS: Atorvastatin Calcium 40 MG TAB PO SCH (09:14)
[2024-08-08] MEDS: Enoxaparin 30 MG (0.3 mL) SYRINGE SC SCH (09:14)
[2024-08-08] MEDS: Famotidine/PF 20 mg/2ml Vial SLOW IVP SCH (09:14)
[2024-08-08] MEDS ORDERED: Albumin 25% 25 GM (100 mL) BOT IVPB PRN (16:18)
[2024-08-08 16:23] LABS: HBSAB Concentration 254.12 mIU/mL; HBsAg Index 0.25 S/CO (0-0.99); Hep B Surf AB REACTIVE (NonReactive); Hep B Surf Ag NONREACTIVE S/CO (NonReactive); Hep C IgG Ab NONREACTIVE S/CO (NonReactive); Hep C Index 0.15 S/CO (0-0.79)
[2024-08-08 18:40] LABS: Hep B Core Total Ab NONREACTIVE (NonReactive); Hep B Core Total Index 0.12 S/CO (0-0.79)
[2024-08-09 08:29] LABS: Hematocrit 29.7 % (42.0-52.0); Hemoglobin 10.1 g/dL (14.0-18.0); Mean Corpuscular Hemoglobin 26.8 pg (27.0-31.0); Mean Corpuscular Volume 78.8 fL (78.0-98.0); Platelet Count 110 10x3/uL (130-400); RBC Distribution Width 16.9 % (11.5-14.5); Red Blood Cell (RBC) Count 3.77 mill/uL (4.70-6.10)
[2024-08-09 08:41] LABS: ALT (SGPT) 11 U/L (8-55); AST (SGOT) 29 U/L (5-34); Albumin 2.2 g/dL (3.5-5.0); Alkaline Phosphatase 123 U/L (40-110); Anion Gap 21 mmol/L (10-20); BUN (Urea Nitrogen) 72 mg/dL (8.9-20.6); Bilirubin, Total 1.5 mg/dL (0.2-1.2); Calc. Creatinine Clearance 12 mL/min (70-130); Calcium 8.4 mg/dL (7.8-10.44); Carbon Dioxide 20 mmol/L (22-29); Chloride 101 mmol/L (98-107); Estimated GFR 6; Globulin 4.3 g/dL (2.4-3.5); Glucose 153 mg/dL (70-105); Potassium 3.6 mmol/L (3.5-5.1); Protein, Total 6.5 g/dL (6.0-8.3); Sodium 138 mmol/L (136-145)
[2024-08-09 09:15] LABS: Anisocytosis SLIGHT = 6-15 cells HPF (0-5); Band 3 % (5-11); Hypochromia SLIGHT = 6-15 cells HPF (0-5); Lymphocytes 3 % (21-51); Monocytes 3 % (0-10); Neutrophil 91 % (42-75); Platelet Adequacy Comment Platelets Decreased; Poikilocytosis SLIGHT = 6-15 cells HPF (0-5); Polychromasia SLIGHT = 2-3 cells HPF (0-2); Schistocytes SLIGHT = 2-5 cells HPF (0-1); Target Cells SLIGHT = 2-5 cells HPF (0-1)
[2024-08-09] MEDS: Albumin 25% 25 GM (100 mL) BOT IVPB SCH (10:01)
[2024-08-09] MEDS: EPOETIN ALFA-EPBX (ESRD) 10,000 UNITS/ML VIAL SC SCH (12:36)
[2024-08-09] MEDS: Meropenem 1 GM in Sodium Chloride 0.9% 100 ML IVPB SCH (12:38)
[2024-08-09] MEDS: Clindamycin/D5W 900 MG in Premix 1 BAG IVPB SCH (13:53)
[2024-08-09] MEDS ORDERED: Meropenem 500 MG in Sodium Chloride 0.9% 100 ML IVPB SCH (14:00)
[2024-08-09 16:19] LABS: Hemoglobin A1c 5.7 % (4.0-6.0)
[2024-08-09] MEDS: Meropenem 500 MG in Sodium Chloride 0.9% 100 ML IVPB SCH ×3 (20:10→23:03)
[2024-08-09] MEDS: Atorvastatin Calcium 40 MG TAB PO SCH (20:11)
[2024-08-09] MEDS: Linezolid 600 MG in Premix 1 BAG IVPB SCH (21:16)
[2024-08-10 06:33] LABS: #Basophils 0.05 10x3/uL (0.0-0.2); %Basophils 0.2 % (0.0-1.0); %Eosinophils 0.1 % (0.0-10.0); %Lymphocytes 4.3 % (21.0-51.0); %Monocytes 5.5 % (0.0-10.0); %Neutrophils 86.7 % (42.0-75.0); Hematocrit 27.5 % (42.0-52.0); Hemoglobin 9.4 g/dL (14.0-18.0); Mean Corpuscular HGB CONC 34.2 g/dL (32.0-36.0); Mean Corpuscular Hemoglobin 27.2 pg (27.0-31.0); Mean Corpuscular Volume 79.7 fL (78.0-98.0); Platelet Count 104 10x3/uL (130-400); RBC Distribution Width 17.1 % (11.5-14.5); Red Blood Cell (RBC) Count 3.45 mill/uL (4.70-6.10)
[2024-08-10 06:46] LABS: ALT (SGPT) 9 U/L (8-55); AST (SGOT) 27 U/L (5-34); Albumin 2.1 g/dL (3.5-5.0); Alkaline Phosphatase 135 U/L (40-110); Anion Gap 20 mmol/L (10-20); BUN (Urea Nitrogen) 44 mg/dL (8.9-20.6); Bilirubin, Total 1.4 mg/dL (0.2-1.2); Calc. Creatinine Clearance 25 mL/min (70-130); Calcium 7.9 mg/dL (7.8-10.44); Carbon Dioxide 20 mmol/L (22-29); Chloride 96 mmol/L (98-107); Estimated GFR 9; Glucose 317 mg/dL (70-105); Potassium 3.6 mmol/L (3.5-5.1); Protein, Total 6.1 g/dL (6.0-8.3); Sodium 132 mmol/L (136-145)
[2024-08-10 11:38] LABS: INR-International Normal Ratio 1.2; Prothrombin Time 15.4 sec (12.0-14.7)
[2024-08-10 11:39] LABS: PTT 34.4 sec (22.9-36.1)
[2024-08-10] MEDS: Albumin 25% 25 GM (100 mL) BOT IVPB SCH (11:56)
[2024-08-10] MEDS ORDERED: Etomidate 40 MG (20 mL) VIAL ONE (12:00)
[2024-08-10] MEDS ORDERED: Rocuronium Bromide 10 MG/ML (10ML VIAL) ONE ×2 (12:07→14:00)
[2024-08-10] MEDS ORDERED: ePHEDrine Sulfate 50 MG/10 ML VIAL ONE (13:38)
[2024-08-10] MEDS ORDERED: Vasopressin 20 UNITS/ML VIAL ONE (13:40)
[2024-08-10] MEDS ORDERED: Tranexamic Acid 1,000 MG/10 ML VIAL ONE (14:20)
[2024-08-10] MEDS ORDERED: Norepinephrine 4 MG/4 ML VIAL ONE ×2 (14:38→14:44)
[2024-08-10] MEDS ORDERED: Midazolam HCl 2 mg/2 ml Vial ONE (15:39)
[2024-08-10] MEDS: Fentanyl CADD 100 ML ONE (16:23)
[2024-08-10] MEDS ORDERED: DISCONTINUE PREVIOUS NARCOTIC PAIN MEDICATIONS AND BENZODIAZEPINES FS SCH (16:30)
[2024-08-10] MEDS ORDERED: Propofol BOLUS 1,000 MG/100 ML VIAL IV PRN (16:30)
[2024-08-10] MEDS ORDERED: Propofol 1,000 MG/100 ML VIAL IV PRN (16:30)
[2024-08-10] MEDS ORDERED: Fentanyl CADD 100 ML IV SCH (16:30)
[2024-08-10] MEDS ORDERED: Morphine 2 MG/ML VIAL SLOW IVP PRN (16:30)
[2024-08-10] MEDS ORDERED: Fentanyl BOLUS 250 ML IVPB PRN (16:30)
[2024-08-10] MEDS ORDERED: Lorazepam 2 MG/ML VIAL SLOW IVP PRN (16:30)
[2024-08-10 16:37] LABS: Actual Bicarbonate (HCO3a) 23.9 mEq/L (22-28); Base Excess (BEa) -3.6 mEq/L (-2.0 to +3.0); CO2 Tension 55.1 mmHg (35.0-45.0); Calcium, Ionized (arterial) 1.05 mmol/L (1.12-1.30); Carboxyhemoglobin (COHb) 1.5 gm% (0.0-3.0); Hematocrit-ABG 32 % (42.0-52.0); Hemoglobin (Hb) 10.8 g/dL (14.0-18.0); O2 Tension (PaO2), arterial 131.1 mmHg (80.0-100.0); Potassium - ABG Lab 3.85 mmol/L (3.70-5.30); pH, Arterial 7.255 (7.35-7.45)
[2024-08-10 16:43] LABS: ALT (SGPT) 8 U/L (8-55); AST (SGOT) 22 U/L (5-34); Albumin 1.9 g/dL (3.5-5.0); Alkaline Phosphatase 114 U/L (40-110); Anion Gap 14 mmol/L (10-20); BUN (Urea Nitrogen) 48 mg/dL (8.9-20.6); Calc. Creatinine Clearance 24 mL/min (70-130); Calcium 7.6 mg/dL (7.8-10.44); Carbon Dioxide 24 mmol/L (22-29); Chloride 102 mmol/L (98-107); Estimated GFR 8; Globulin 3.3 g/dL (2.4-3.5); Glucose 154 mg/dL (70-105); Protein, Total 5.2 g/dL (6.0-8.3); Sodium 136 mmol/L (136-145)
[2024-08-10 16:43] LABS: ALV-art Gradient 156.525 mmHg (0-20); Puncture Site Right Brachial art
[2024-08-10] MEDS: Clindamycin/D5W 900 MG in Premix 1 BAG IVPB SCH (16:58)
[2024-08-10] MEDS: NOREPINEPHRINE 8 MG/250 ML-D5W 250 ML IVPB SCH (16:58)
[2024-08-10 17:04] LABS: Anisocytosis SLIGHT = 6-15 cells HPF (0-5); Band 4 % (5-11); Burr Cells SLIGHT = 2-5 cells HPF (0-1); Eosinophils 1 % (0-10); HIV (1/2) Antibody/Antigen NONREACTIVE (NonReactive); HIV 1/2 INDEX 0.07 S/CO (<1.00); Hematocrit 27.9 % (42.0-52.0); Hemoglobin 9.3 g/dL (14.0-18.0); Hypochromia SLIGHT = 6-15 cells HPF (0-5); Lymphocytes 4 % (21-51); Macrocytosis SLIGHT = 6-15 cells HPF (0-5); Mean Corpuscular HGB CONC 33.3 g/dL (32.0-36.0); Mean Corpuscular Hemoglobin 27.9 pg (27.0-31.0); Mean Corpuscular Volume 83.8 fL (78.0-98.0); Neutrophil 91 % (42-75); Ovalocytes SLIGHT = 2-5 cells HPF (0-1); Platelet Adequacy Comment Platelets Decreased; Platelet Count 96 10x3/uL (130-400); Polychromasia MODERATE = 3-4 cells HPF (0-2); RBC Distribution Width 16.9 % (11.5-14.5); Red Blood Cell (RBC) Count 3.33 mill/uL (4.70-6.10); Target Cells SLIGHT = 2-5 cells HPF (0-1); Tear Drops SLIGHT = 2-5 cells HPF (0-1)
[2024-08-11 05:32] LABS: Hematocrit 23.7 % (42.0-52.0); Hemoglobin 8.3 g/dL (14.0-18.0); Mean Corpuscular Hemoglobin 28.2 pg (27.0-31.0); Mean Corpuscular Volume 80.6 fL (78.0-98.0); Platelet Count 87 10x3/uL (130-400); Red Blood Cell (RBC) Count 2.94 mill/uL (4.70-6.10)
[2024-08-11 05:53] LABS: ALT (SGPT) 7 U/L (8-55); AST (SGOT) 19 U/L (5-34); Albumin 2.3 g/dL (3.5-5.0); Alkaline Phosphatase 94 U/L (40-110); Anion Gap 16 mmol/L (10-20); BUN (Urea Nitrogen) 51 mg/dL (8.9-20.6); Bilirubin, Total 2.7 mg/dL (0.2-1.2); Calc. Creatinine Clearance 22 mL/min (70-130); Calcium 7.8 mg/dL (7.8-10.44); Carbon Dioxide 22 mmol/L (22-29); Chloride 104 mmol/L (98-107); Estimated GFR 8; Globulin 3.2 g/dL (2.4-3.5); Glucose 136 mg/dL (70-105); Potassium 3.9 mmol/L (3.5-5.1); Protein, Total 5.5 g/dL (6.0-8.3); Sodium 138 mmol/L (136-145)
[2024-08-11 05:54] LABS: Anisocytosis SLIGHT = 6-15 cells HPF (0-5); Band 9 % (5-11); Eosinophils 1 % (0-10); Hypochromia SLIGHT = 6-15 cells HPF (0-5); Lymphocytes 6 % (21-51); Macrocytosis SLIGHT = 6-15 cells HPF (0-5); Monocytes 5 % (0-10); Neutrophil 76 % (42-75); Platelet Adequacy Comment Platelets Decreased; Polychromasia SLIGHT = 2-3 cells HPF (0-2); Reactive Lymphocytes 1 % (0-10); Target Cells SLIGHT = 2-5 cells HPF (0-1)
[2024-08-11] MEDS: Albumin 25% 25 GM (100 mL) BOT IVPB SCH (10:58)
[2024-08-11] MEDS: Ondansetron PF 4 MG/2 ML Vial IVP PRN (16:11)
[2024-08-12 04:33] LABS: Hematocrit 20.5 % (42.0-52.0); Hemoglobin 7.1 g/dL (14.0-18.0); Mean Corpuscular HGB CONC 34.6 g/dL (32.0-36.0); Mean Corpuscular Hemoglobin 28.2 pg (27.0-31.0); Mean Corpuscular Volume 81.3 fL (78.0-98.0); Platelet Count 90 10x3/uL (130-400); RBC Distribution Width 16.9 % (11.5-14.5); Red Blood Cell (RBC) Count 2.52 mill/uL (4.70-6.10)
[2024-08-12 04:47] LABS: ALT (SGPT) 5 U/L (8-55); AST (SGOT) 16 U/L (5-34); Albumin 2.7 g/dL (3.5-5.0); Alkaline Phosphatase 80 U/L (40-110); Anion Gap 19 mmol/L (10-20); BUN (Urea Nitrogen) 55 mg/dL (8.9-20.6); Bilirubin, Total 1.7 mg/dL (0.2-1.2); Calc. Creatinine Clearance 21 mL/min (70-130); Calcium 7.8 mg/dL (7.8-10.44); Carbon Dioxide 21 mmol/L (22-29); Chloride 103 mmol/L (98-107); Estimated GFR 7; Globulin 3.1 g/dL (2.4-3.5); Glucose 104 mg/dL (70-105); Potassium 4.1 mmol/L (3.5-5.1); Protein, Total 5.8 g/dL (6.0-8.3); Sodium 139 mmol/L (136-145)
[2024-08-12 05:06] LABS: Eosinophils 2 % (0-10); Hypochromia MODERATE=16-30 cells HPF (0-5); Lymphocytes 4 % (21-51); Monocytes 5 % (0-10); Myelocyte 2 % (0-0); Neutrophil 87 % (42-75); Polychromasia SLIGHT = 2-3 cells HPF (0-2)
[2024-08-12 05:07] LABS: Large Platelets 17.6 % (0-5); Platelet Adequacy Comment Platelets Decreased; Toxic Granulation SLIGHT; Vacuoles SLIGHT
[2024-08-12] MEDS: Pantoprazole 40 MG VIAL IVP SCH (08:32)
[2024-08-12] MEDS: LINEZOLID IVPB SCH (22:45)
[2024-08-13 04:27] LABS: Hematocrit 21.2 % (42.0-52.0); Hemoglobin 7.2 g/dL (14.0-18.0); Mean Corpuscular Hemoglobin 27.8 pg (27.0-31.0); Mean Corpuscular Volume 81.9 fL (78.0-98.0); Platelet Count 112 10x3/uL (130-400); RBC Distribution Width 17.1 % (11.5-14.5); Red Blood Cell (RBC) Count 2.59 mill/uL (4.70-6.10)
[2024-08-13 04:37] LABS: ALT (SGPT) 6 U/L (8-55); AST (SGOT) 18 U/L (5-34); Albumin 2.6 g/dL (3.5-5.0); Alkaline Phosphatase 121 U/L (40-110); Anion Gap 15 mmol/L (10-20); BUN (Urea Nitrogen) 31 mg/dL (8.9-20.6); Bilirubin, Total 1.4 mg/dL (0.2-1.2); Calc. Creatinine Clearance 31 mL/min (70-130); Carbon Dioxide 26 mmol/L (22-29); Chloride 102 mmol/L (98-107); Estimated GFR 12; Globulin 3.6 g/dL (2.4-3.5); Glucose 80 mg/dL (70-105); Potassium 3.8 mmol/L (3.5-5.1); Protein, Total 6.2 g/dL (6.0-8.3); Sodium 139 mmol/L (136-145)
[2024-08-13 05:53] LABS: Band 6 % (5-11); Hypochromia SLIGHT = 6-15 cells HPF (0-5); Lymphocytes 7 % (21-51); Monocytes 1 % (0-10); Neutrophil 85 % (42-75); Platelet Adequacy Comment Platelets Decreased; Polychromasia MODERATE = 3-4 cells HPF (0-2)
[2024-08-14 06:20] LABS: #Basophils 0.06 10x3/uL (0.0-0.2); %Basophils 0.5 % (0.0-1.0); %Eosinophils 1.5 % (0.0-10.0); %Lymphocytes 11.8 % (21.0-51.0); %Monocytes 10.2 % (0.0-10.0); %Neutrophils 70.8 % (42.0-75.0); Hematocrit 23.9 % (42.0-52.0); Hemoglobin 7.9 g/dL (14.0-18.0); Mean Corpuscular HGB CONC 33.1 g/dL (32.0-36.0); Mean Corpuscular Hemoglobin 27.4 pg (27.0-31.0); Platelet Count 118 10x3/uL (130-400); RBC Distribution Width 17.6 % (11.5-14.5); Red Blood Cell (RBC) Count 2.88 mill/uL (4.70-6.10)
[2024-08-14 06:28] LABS: Phosphorus 6.1 mg/dL (2.3-4.7)
[2024-08-14 06:29] LABS: Calc. Creatinine Clearance 23 mL/min (70-130); Estimated GFR 9
[2024-08-14 06:31] LABS: ALT (SGPT) 6 U/L (8-55); AST (SGOT) 20 U/L (5-34); Albumin 2.5 g/dL (3.5-5.0); Alkaline Phosphatase 171 U/L (40-110); Anion Gap 16 mmol/L (10-20); BUN (Urea Nitrogen) 36 mg/dL (8.9-20.6); Bilirubin, Total 1.3 mg/dL (0.2-1.2); Calcium 7.9 mg/dL (7.8-10.44); Carbon Dioxide 22 mmol/L (22-29); Chloride 102 mmol/L (98-107); Globulin 3.7 g/dL (2.4-3.5); Glucose 77 mg/dL (70-105); Potassium 4.2 mmol/L (3.5-5.1); Protein, Total 6.2 g/dL (6.0-8.3); Sodium 136 mmol/L (136-145)
[2024-08-14] MEDS: hydrALAZINE 25 MG TAB PO SCH (09:10)
[2024-08-14] MEDS: Pantoprazole 40 MG DR.TAB PO SCH (09:11)
[2024-08-14] MEDS: Carvedilol 6.25 MG TAB PO SCH (09:11)
[2024-08-14] MEDS: Levothyroxine Sodium 75 MCG TAB PO SCH ×2 (09:54)
[2024-08-14] MEDS: Diphenoxylate HCl/Atropine Tablet PO PRN (18:38)
[2024-08-15] MEDS: Sacubitril 49 MG/Valsartan 51 MG TABLET PO SCH (09:22)
[2024-08-15] MEDS: Sevelamer Carbonate 800 MG TAB PO SCH (12:19)
[2024-08-15] MEDS: traMADol HCl 50 MG TAB PO PRN (13:30)
[2024-08-15] MEDS: Morphine 2 MG/ML VIAL SLOW IVP PRN (13:30)
[2024-08-16 06:53] LABS: #Basophils 0.09 10x3/uL (0.0-0.2); %Basophils 0.7 % (0.0-1.0); %Eosinophils 1.9 % (0.0-10.0); %Lymphocytes 11.6 % (21.0-51.0); %Monocytes 10.1 % (0.0-10.0); %Neutrophils 72.9 % (42.0-75.0); Hematocrit 22.6 % (42.0-52.0); Hemoglobin 7.5 g/dL (14.0-18.0); Mean Corpuscular HGB CONC 33.2 g/dL (32.0-36.0); Mean Corpuscular Hemoglobin 27.9 pg (27.0-31.0); Platelet Count 133 10x3/uL (130-400); RBC Distribution Width 17.6 % (11.5-14.5); Red Blood Cell (RBC) Count 2.69 mill/uL (4.70-6.10)
[2024-08-16 07:05] LABS: Anion Gap 14 mmol/L (10-20); BUN (Urea Nitrogen) 26 mg/dL (8.9-20.6); Calc. Creatinine Clearance 27 mL/min (70-130); Carbon Dioxide 26 mmol/L (22-29); Chloride 99 mmol/L (98-107); Estimated GFR 10; Glucose 75 mg/dL (70-105); Potassium 4.1 mmol/L (3.5-5.1); Sodium 135 mmol/L (136-145)
[2024-08-16] MEDS: Carvedilol 6.25 MG TAB PO SCH (08:16)
[2024-08-16] MEDS: hydrALAZINE 25 MG TAB PO SCH (08:16)
[2024-08-17 06:47] LABS: Iron 16 ug/dL (65-175); Iron Binding Capacity, Total 120 mcg/dL (261-462)
[2024-08-17] MEDS: NIFEdipine XL 60 MG ER.TAB PO SCH (08:13)
[2024-08-17] MEDS: Sacubitril 49 MG/Valsartan 51 MG TABLET PO SCH (08:14)
[2024-08-17] MEDS: Sodium Ferric Gluconate 250 MG in Sodium Chloride 0.9% 250 ML 250 ML IVPB SCH (11:29)
[2024-08-17] MEDS: Carvedilol 6.25 MG TAB PO SCH (21:04)
[2024-08-18 06:47] LABS: Hematocrit 22.6 % (42.0-52.0); Hemoglobin 7.5 g/dL (14.0-18.0); Mean Corpuscular HGB CONC 33.2 g/dL (32.0-36.0); Mean Corpuscular Hemoglobin 27.8 pg (27.0-31.0); Mean Corpuscular Volume 83.7 fL (78.0-98.0); Platelet Count 134 10x3/uL (130-400); RBC Distribution Width 17.5 % (11.5-14.5)
[2024-08-18 07:06] LABS: Eosinophils 3 % (0-10); Large Platelets 39.2 % (0-5); Lymphocytes 12 % (21-51); Monocytes 10 % (0-10); Myelocyte 1 % (0-0); Neutrophil 74 % (42-75); Platelet Adequacy Comment Platelets Normal; Polychromasia SLIGHT = 2-3 cells HPF (0-2); Smudge Cells 9.8 %
[2024-08-18 07:11] LABS: Albumin 2.1 g/dL (3.5-5.0); Anion Gap 15 mmol/L (10-20); BUN (Urea Nitrogen) 20 mg/dL (8.9-20.6); BUN/Creatinine Ratio 3.28; Calc. Creatinine Clearance 26 mL/min (70-130); Calcium 7.9 mg/dL (7.8-10.44); Carbon Dioxide 26 mmol/L (22-29); Chloride 101 mmol/L (98-107); Estimated GFR 11; Glucose 87 mg/dL (70-105); Phosphorus 5.6 mg/dL (2.3-4.7); Potassium 3.7 mmol/L (3.5-5.1); Sodium 138 mmol/L (136-145)
[2024-08-18] MEDS: NIFEdipine XL 60 MG ER.TAB PO SCH (08:59)
[2024-08-20 10:17] LABS: Hematocrit 25.6 % (42.0-52.0); Hemoglobin 8.5 g/dL (14.0-18.0); Mean Corpuscular HGB CONC 33.2 g/dL (32.0-36.0); Mean Corpuscular Hemoglobin 27.6 pg (27.0-31.0); Mean Corpuscular Volume 83.1 fL (78.0-98.0); Platelet Count 148 10x3/uL (130-400); RBC Distribution Width 17.5 % (11.5-14.5); Red Blood Cell (RBC) Count 3.08 mill/uL (4.70-6.10)
[2024-08-20 10:45] LABS: Anion Gap 12 mmol/L (10-20); BUN (Urea Nitrogen) 19 mg/dL (8.9-20.6); Calc. Creatinine Clearance 30 mL/min (70-130); Calcium 8.4 mg/dL (7.8-10.44); Carbon Dioxide 31 mmol/L (22-29); Chloride 100 mmol/L (98-107); Estimated GFR 13; Glucose 102 mg/dL (70-105); Potassium 4.2 mmol/L (3.5-5.1); Sodium 139 mmol/L (136-145)
[2024-08-20 10:59] VITALS: BMI 32.5
[2024-08-20 11:02] LABS: Band 2 % (5-11); Eosinophils 2 % (0-10); Hypochromia SLIGHT = 6-15 cells HPF (0-5); Lymphocytes 6 % (21-51); Monocytes 6 % (0-10); Neutrophil 81 % (42-75); Platelet Adequacy Comment Platelets Normal
[2024-08-20 15:29] VITALS: TEMP 98.1
[2024-08-20 21:05] VITALS: BP 118/64
== END 2024-08-20 21:20 | DRG 853 ==
LOC: ERS 17:06 → ERHOLD 21:10 → SURG A 23:33 → IMCU/EMU 08-08 20:06 → CCU 08-10 14:49 → SURG B 08-12 21:10
PROVIDERS: ADMIT Hospitalist; ATTEND Internal Medicine
PROC: 0Y6J0Z1 Detachment at Left Lower Leg, High, Open Approach (ICD-10-PCS; principal; 2024-08-10)
PROC: 30233N1 Transfusion of Nonautologous Red Blood Cells into Peripheral Vein, Percutaneous Approach (ICD-10-PCS; 2024-08-10)
PROC: 4A033R1 Measurement of Arterial Saturation, Peripheral, Percutaneous Approach (ICD-10-PCS; 2024-08-10)
PROC: 3E033XZ Introduction of Vasopressor into Peripheral Vein, Percutaneous Approach (ICD-10-PCS; 2024-08-10)
PROC: 3E03329 Introduction of Other Anti-infective into Peripheral Vein, Percutaneous Approach (ICD-10-PCS; 2024-08-10)
DX: A41.81 Sepsis due to Enterococcus (principal); A48.0 Gas gangrene; G93.41 Metabolic encephalopathy; N18.6 End stage renal disease; R65.21 Severe sepsis with septic shock; M72.6 Necrotizing fasciitis; J95.821 Acute postprocedural respiratory failure; L03.116 Cellulitis of left lower limb; L02.416 Cutaneous abscess of left lower limb; I13.2 Hypertensive heart and chronic kidney disease with heart failure and with stage 5 chronic kidney disease, or end stage renal disease; I50.22 Chronic systolic (congestive) heart failure; E11.52 Type 2 diabetes mellitus with diabetic peripheral angiopathy with gangrene; D62 Acute posthemorrhagic anemia; E11.22 Type 2 diabetes mellitus with diabetic chronic kidney disease; E78.5 Hyperlipidemia, unspecified; I89.0 Lymphedema, not elsewhere classified; L97.529 Non-pressure chronic ulcer of other part of left foot with unspecified severity; A41.59 Other Gram-negative sepsis; E83.39 Other disorders of phosphorus metabolism; E11.621 Type 2 diabetes mellitus with foot ulcer; E66.01 Morbid (severe) obesity due to excess calories; Z68.32 Body mass index [BMI] 32.0-32.9, adult; Z79.4 Long term (current) use of insulin; Z99.2 Dependence on renal dialysis; Z91.158 Patient's noncompliance with renal dialysis for other reason; Z79.899 Other long term (current) drug therapy; R13.10 Dysphagia, unspecified; D63.1 Anemia in chronic kidney disease
CPT/HCPCS: 36415; 36416; 36430; 36600; 71045; 80048; 80053; 80069; 82728; 82805; 83036; 83540; 83550; 83605; 84100; 84145; 85025; 85610; 85730; 86141; 86704; 86706; 86803; 86850; 86900; 86901; 87040; 87077; 87149; 87186; 87324; 87340; 87389; 87449; 88307; 88311; 90935; 93005; 93306; 94002; 94003; 96365; 96366; 96368; 97139; A6550; C1751; G0257; J0692; J1650; J2020; J2185; J2250; J2272; J2405; J2470; J2543; J2916; J3010; J3370; J3490; J7050; P9016; P9047; Q5105